=== PATIENT | male | born 1965 | race Caucasian/White ===

== ENCOUNTER → 2020-03-11 08:46 | Outpatient (CLI) | payer OTHER, SELFPAY ==
[2020-02-12 15:12] VITALS: BMI 38.5
[2020-03-11 09:49] LABS: AST(SGOT) 13 U/L (15-37); Alanine Aminotransfer ALT/SGPT 31 U/L (16-61); Albumin, Serum 3.6 g/dL (3.2-5.0); Alkaline Phosphatase 87 U/L (45-117); Bilirubin, Direct 0.25 mg/dL (0.00-0.30); Cholesterol 146 mg/dL (200); Globulin 3.4 g/dL (2.2-4.2); High Density Lipoprotein 48 mg/dL; Triglycerides 68 mg/dL; Very Low Density Lipoprotein 14 mg/dL (5-40)
== END ==
PROVIDERS: PCP Family Medicine; Referring Provider Internal Medicine Cardiovascular Disease; Visit Provider Internal Medicine Cardiovascular Disease
DX: E78.2 Mixed hyperlipidemia (principal)
CPT/HCPCS: 36415; 80061; 80076

== ENCOUNTER → 2020-03-25 06:54 | Outpatient (CLI) | payer OTHER, SELFPAY ==
[2020-02-12 15:12] VITALS: BMI 38.5
--- NOTE | 2020-03-25 06:57 | ECHOCS_ITS ---
Reason For Study: Chest pain Procedure This was a 2D Doppler, Color Flow transthoracic echocardiogram. The study was technically difficult. Exam performed in department. Left Ventricle Normal LV size. Left ventricular systolic function is normal. The estimated ejection fraction is 65 %. No regional wall motion abnormalities noted. Right Ventricle Normal RV size. Normal systolic function. Atria Normal left atrium. Mitral Valve Normal mitral valve. Tricuspid Valve The tricuspid valve is not well visualized. Aortic Valve The aortic valve is not well visualized. Great Vessels Normal aortic root. Pericardium/Pleural No pericardial effusion. Medication Performed a rapid injection of agitated mix of 9 cc saline and 1cc air to assess for atrial septal defect. Diluted definity 3ml given slow IV push to enhance endocardial definition. MMode/2D Measurements & Calculations LVIDd: 4.0 cm IVSd: 1.2 cm Ao root diam: 3.8 cm LVIDs: 2.4 cm LVPWd: 1.2 cm RVDd: 3.4 cm FS: 39.6 % LAV(MOD-bp): 49.2 ml LA A4 area: 13.3 cm2 LA dimension(2D): 3.3 cm LAV(MOD-sp2): 72.4 ml LAV(MOD-sp4): 28.7 ml RA A4 area: 12.5 cm2 Doppler Measurements & Calculations MV A max shai: 57.1 cm/sec Lat Peak E' Shai: 9.6 cm/sec Med Peak E' Shai: 7.4 cm/sec Ao V2 max: 119.6 cm/sec LV V1 max: 107.5 cm/sec PA V2 max: 101.8 cm/sec Ao max P.7 mmHg LV V1 max P.6 mmHg Interpretation Summary Normal LV size. Left ventricular systolic function is normal. The estimated ejection fraction is 65 %. Contrast injection was performed. Ordering Physician: Hamilton Reyna Referring Physician: MD Syeda Khadar Performed By: Deepti De La Fuente RDCS
--- NOTE | 2020-03-25 12:40 | STRESSREP ---
Stress Test Report Exercise myocardial perfusion stress test. 54-year-old man with a history of hypertension, diabetes mellitus, and chest pain. Stress protocol: Resting EKG demonstrates normal sinus rhythm with a rate of 75 bpm normal intervals are noted resting blood pressure is 118/72 mmHg. The patient exercised according to the regular Edwardo protocol for total duration of 9 minutes. The maximum heart rate attained was 150 bpm which was 92% of maximum predicted heart rate the maximum workload was 10.1 metabolic equivalents. At rest there were no ST or T wave changes noted to suggest ischemia at peak exercise upsloping ST changes were noted with no meet the criteria for ischemia. The resting blood pressure was 118/72 with a peak blood pressure 186/90 mmHg. The rate-pressure product was 27,500. Occasional premature ventricular complexes were noted. The test was terminated due to dyspnea and target heart rate being achieved. Myocardial perfusion protocol. 15.0 mCi of technetium 99m sestamibi was injected at rest. The patient exercised according to regular Edwardo protocol. At peak infusion 45.0 mCi of technetium 99m sestamibi was injected stress images were obtained stress and rest images were reconstructed and compared in the short axis vertical long horizontal long axis. Gated images were also obtained Perfusion SPECT analysis: Review of the stress images demonstrate normal uptake of tracer noted in all areas of the myocardium. The resting images similar demonstrate normal uptake of tracer noted in all areas of the myocardium. No reversibility is noted to suggest ischemia. Gated SPECT analysis: The gated ejection fraction is 57%. Conclusion: Normal exercise myocardial perfusion stress test at a high workload. No clinical angina noted. Preserved ejection fraction.
== END ==
PROVIDERS: PCP Family Medicine; Referring Provider Internal Medicine Cardiovascular Disease; Visit Provider Internal Medicine Cardiovascular Disease
DX: R07.9 Chest pain, unspecified (principal); R94.31 Abnormal electrocardiogram [ECG] [EKG]; R03.0 Elevated blood-pressure reading, without diagnosis of hypertension
CPT/HCPCS: 78452; 93017; 93306; A9500; Q9957; A4216; C8929

== ENCOUNTER 2025-05-22 05:44 | Day surgery (SDC) | payer OTHER, SELFPAY ==
--- NOTE | 2025-05-14 08:16 | EKG12_ITS ---
Test Reason : PREOP Blood Pressure : */* mmHG Vent. Rate : 78 BPM Atrial Rate : 78 BPM P-R Int : 174 ms QRS Dur : 98 ms QT Int : 370 ms P-R-T Axes : 21 -12 28 degrees QTcB Int : 421 ms Normal sinus rhythm Inferior-posterior infarct , age undetermined Abnormal ECG Confirmed by IVAN LAGOS, DILLON ([id number]), editor book BRIAN ARCE ([id number]) on 05/14/2025 1:51:59 PM Referred By: Curt Dover Confirmed By: DILLON LOVE MD
[2025-05-14 08:44] LABS: Hematocrit 42.0 % (40-54); Hemoglobin 14.0 g/dL (13.0-16.5); Immature Granulocytes Count 0.020 X10^3/uL (0.0-0.0); Mean Corp Hgb Conc 33.3 g/dL (32-36); Mean Corpuscular Volume 89.0 fL (80-94); Mean Platelet Vol. 9.1 fl (6.2-12.0); NRBC Flagged by Analyzer 0 % (0-5); Platelet Count 319 K/mm3 (150-450); RBC Distribution Width CV 13.8 % (11.6-14.6); RBC Distribution Width SD 44.6 fl (35.1-43.9); Red Blood Count 4.72 M/mm3 (4.6-6.2); White Blood Count 5.9 K/mm3 (4.4-11.0)
[2025-05-14 09:31] LABS: Anion Gap 8 (5-15); BUN 10 mg/dL (4-19); BUN/Creat Ratio 12.5 RATIO (10-20); Calcium,Total 9.5 mg/dL (7.6-11.0); Carbon Dioxide 25.6 mmol/L (21.0-32.0); Chloride 108 mmol/L (98-108); Glucose 112 mg/dL (70-99); Potassium 4.5 mmol/L (3.3-5.1)
--- NOTE | 2025-05-15 16:18 | PAT.ANE_ITS ---
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 When Was Last Pacemaker Check QUESTION #4 FULL TEXT: You/Your Family Experience fever (hyperthermia) with Anesthesia Last Oral Intake Last Oral intake: Last Oral Intake NPO since Meds taken in AM with sips of water? Meds patient instructed to take am of surgery PONV PONV - utility bag assembler: PONV - utility bag assembler Female No 05/12/25 15:12 HX of Motion Sickness No 05/12/25 15:12 HX of N/V After Surgery No 05/12/25 15:12 Non-Smoker Yes 05/12/25 15:12 Duration of Surgery greater Yes 05/12/25 15:12 than 60 minutes Number of Risk Factors 2 05/12/25 15:12 PONV Score Moderate Risk 05/12/25 15:12 Height & Weight Height & Weight: Anesthesia: Height & Weight Height 5 ft 10 in 07/29/21 08:28 Respiratory Assessment Respiratory Assessment - utility bag assembler: Respiratory Tract Infection Hx - utility bag assembler Hx Respiratory Tract Infection No 05/12/25 15:12 STOP Sleep Apnea STOP Sleep Apnea - utility bag assembler: STOP Sleep Apnea - utility bag assembler Hx Hypertension Yes: CONTROLLED ON MED 05/12/25 15:12 Hx Sleep Apnea No 05/12/25 15:12 CPAP BIPAP Do you snore loudly (louder No 05/12/25 15:12 than talking or can be heard Do you often feel tired/ No 05/12/25 15:12 fatigued/ sleepy during daytime? Has anyone observed you stop No 05/12/25 15:12 breathing during sleep? STOP Results Negative 05/12/25 15:12 QUESTION #5 FULL TEXT : Do you snore loudly (louder than talking or can be heard through closed doors)? 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 Specify any problems Hx of Preganancy in last 3 N/A 05/12/25 15:12 Months Nurse Filling Out Transfusion VCHRISTIN 05/12/25 15:12 & Questions: Date: 05/12/25 05/12/25 15:12 Time: 15:14 05/12/25 15:12 Patient unable to answer at this time (ie. confused, unrespo /Reproduction History /Reproductive History - utility bag assembler: /Reproductive Hx- utility bag assembler Hx Now No 05/12/25 15:12 Gestational Age (in weeks): EDC: Hx Hx Para Hx Section SAB No 05/12/25 15:12 PFSH Medical History (Updated 05/12/25 @ 15:11 by Kaur Regan) Wears glasses Anxiety Arthritis Difficulty swallowing Non-smoker History of edema Hypertension History of echocardiogram History of stress test Cardiology follow-up encounter Mixed hyperlipidemia Obesity Home Medications ?Medication ?Instructions ?Recorded ?Last Taken ?Type acetaminophen 325 mg tablet 325 mg PO Q6H PRN pain 12/02 Unknown History (Tylenol) ibuprofen 200 mg capsule 200 mg PO Q6H PRN pain 02/11 Unknown History naproxen sodium 220 mg capsule 220 mg PO BID PRN pain 02/12/20 Unknown History (Aleve) metoprolol succinate 25 mg 25 mg PO DAILY #90 tabs 02/01 Unknown Rx tablet,extended release 24 hr (Toprol XL) Allergy/AdvReac Type Severity Reaction Status Date / Time Penicillins Allergy rash Verified 05/12/25 15:02 Family History Father Myocardial infarction, Onset Age: 40 Grandfather Myocardial infarction Grandmother Myocardial infarction Surgical History (Updated 05/12/25 @ 15:11 by Kaur Regan) Hx of knee surgery Hx of excision of dermoid cyst History of colonoscopy Social History Smoking Status: Never smoker caffeine: Yes (Mountain dew) Type: carbonated beverages Number of servings: 8 Audit: Pertinent Findings Pertinent Findings EKG Perinent findings: EKG 05-14-2025: Vent. Rate : 78 BPM Atrial Rate : 78 BPM P-R Int : 174 ms QRS Dur : 98 ms QT Int : 370 ms P-R-T Axes : 21 -12 28 degrees QTcB Int : 421 ms Normal sinus rhythm Inferior-posterior infarct , age undetermined Abnormal ECG Stress test pertinent findings: Exercise myocardial perfusion stress test done on 03/25/2020: Conclusion: Normal exercise myocardial perfusion stress test at a high workload. No clinical angina noted. Preserved ejection fraction. Echo (EF%) pertinent findings: Echo 03/25/2020: Normal LV size. Left ventricular systolic function is normal with an estimated EF around 65%. Aortic valve was not well-visualized on this test. Normal left atrium and normal mitral valve. Consult pertinent findings: Cardiology visit with Dr. Reyna 07/29/2021: His blood pressure appears to be under good control at this particular time. His test thus far have been reassuring and my recommendations will be for us to continue the same medications with no changes. At this time I think that we can see him here in our office on an as-needed basis. Recommendation Anesthesia Recommendation Anesthesia recommendation: OPTIMIZED for anesthesia (Would recommend that the patient continue his metoprolol and not hold it for the surgery.)
[2025-05-22] VITALS (14 sets, daily range): BP systolic 116–136; BP diastolic 80–98; PULSE 61–78; RESP 14–16; TEMP 36.2–36.4; O2SAT 92–98; BMI 39.6
--- OUTSIDE RECORDS SUMMARY | 2025-05-22 05:48 | XMS RPT_ITS | CCD ---
Author Organization [facility] ion Partnership [facility] Care Team Providers Care Regional Project Manager Name Role Phone Luis Enrique Landa MD Primary Care Provider Luis Enrique Landa MD Primary Care Provider Alokhoyohana SALES MERCHANDISE ASSOCIATE.Bety HERNANDEZ Unavailable Vahe SALES MERCHANDISE ASSOCIATE.SENIOR PRODUCT DEVELOPMENT SCIENTISTBaldemar Unavailable Tannhof SALES MERCHANDISE ASSOCIATE.Bety HERNANDEZ Unavailable DR LUIS ENRIQUE LANDA MD Primary Care Unavailab cornelius PÉREZ PA-C, AIDA Lynn Attending Unavailable NAOMI CENTENO Attending Unavailable LUIS ENRIQUE LANDA Primary Care Unavailable JESSY HAZEL JR Attending Unavailable BASIA CLEMENT Referring Unavailable LUIS ENRIQUE LANDA Primary Care Unavailable LUIS ENRIQUE LANDA Referring Unavailable LUIS ENRIQUE LANDA Primary Care Unavailable LUIS ENRIQUE LANDA Attending Unavailable LUIS ENRIQUE LANDA Primary Care Unavailable Efe Mays Attending Unavailable Luis Enrique Landa Primary Care Unavailable Luis Enrique Landa Primary Care Unavailable Curt Dover Referring Unavailable Curt Dover Attending Unavailable Referred, Self Attending Unavailable Luis Enrique Landa Primary Care Unavailable LUIS ENRIQUE LANDA Primary Care Unavailable PITO PHILLIPS Attending Unavaila LUIS ENRIQUE [place] Primary Care Unavailable CONKLESHAWN PITO Attending Unavaila NAOMI Miranda Referring Unavailable LUIS ENRIQUE LANDA Primary Care Unavailable LENI BRITTON Admitting Unavailable CONKLESHAWN, PITO Referring Unavaila LUIS ENRIQUE [place] Primary Care Unavailable Allergies Allergy Classification Reported Allergen(s) Allergy Type Date of Onset Reaction(s) Facility (18 sources) Penicillins; Translations: [PENICILLINS] Drug Intolerance 5 [facility] (2 sources) Penicillins Drug Intolerance 5 [facility] (1 source) Penicillins Drug allergy (disorder) [facility] Repository Medications Current Medications Medication Drug Class(es) Dates Sig (Normalized) Sig (Original) acetaminophen 500 mg oral tablet (11 sources) take 1 tablet by mouth every eight hours as needed acetaminophen (TYLENOL EXTRA STRENGTH) 500 mg tablet Take 500 mg by mouth every 8 hours as needed for pain. Active acetaminophen 325 mg / oxyCODONE hydrochloride 5 mg oral tablet (1 source) Opioid Agonist Start: 11-11-2024 End: 11-13-2024 take 1 tablet by mouth every eight hours as needed for pain oxyCODONE-acetamino phen (PERCOCET) 5-325 mg tablet Indications: Left arm pain Take 1 tablet by mouth every 8 hours as needed for pain for up to 2 days. 6 tablet 11/11/2024 11/13/2024 Active ibuprofen 200 mg oral tablet (1 source) Nonsteroidal Anti-inflammatory Drug take 4 tablets by mouth every eight hours as needed ibuprofen (MOTRIN) 200 mg tablet Take 800 mg by mouth every 8 hours as needed for pain. Active 24 hr metoprolol succinate 25 mg extended release oral tablet (19 sources) beta-Adrenergic Salty Start: 03-04-2024 End: 04-22-2024 take 1 tablet by mouth once daily metoprolol succinate ER (TOPROL XL) 25 mg 24 hr tablet Indications: Mixed hyperlipidemia , Primary hypertension Take 1 tablet by mouth once daily. 90 tablet 3 04/22/2024 Active Start: 12-20-2021 End: 12-07-2023 take 1 tablet by mouth once daily metoprolol succinate ER (TOPROL XL) 25 mg 24 hr tablet Indications: Mixed hyperlipidemia Take 1 tablet by mouth once daily. 90 tablet 3 11/18/2022 12/07/2023 Discontinued Comment on above: Take 1 tablet by andrea th once daily. naproxen 250 mg oral tablet (17 sources) Nonsteroidal Anti-inflammatory Drug naproxen (NAPROSY N) 250 mg tablet Take 250 mg by mouth as needed. Active Comment on above: Take 250 mg by mouth as needed. polyethylene glycol 3350 835715 mg / potassium chloride 2970 mg / sodium bicarbonate 6740 mg / sodium chloride 5860 mg / sodium sulfate 69355 mg powder for oral solution (1 source) Osmotic Laxative Start: 05-13-2024 End: 05-13-2024 peg 3350-Electrolytes (GOLYTELY) 236-22.74-6.74 -5.86 gram suspension Indications: Screening for colon cancer Take 4,000 mL by mouth one time only for 1 dose. Refer to printed prep instructions from your provider. 4000 mL 0 05/13/2024 05/13/2024 Active Completed/Discontinued Medications Medication Drug Class(es) Dates Sig (Normalized) Sig (Original) atorvastatin 10 mg oral tablet (8 sources) HMG-CoA Reductase Inhibitor Start: 12-20-2021 End: 04-22-2024 take 1 tablet by mouth once daily atorvastatin (LIPITOR) 10 mg tablet Indications: Mixed hyperlipidemia Take 1 tablet by mouth once daily. 90 tablet 3 11/18/2022 04/22/2024 Discontinued Comment on above: Take 1 tablet by andrea once daily. primidone 50 mg oral tablet (1 source) Anti-epileptic Agent Start: 12-20-2021 End: 11-18-2022 take 0.5 tablet by mouth once daily at bedtime primidone (MYSOLINE) 50 mg tablet Indications: Essential tremor Take 0.5 tablets by mouth daily at bedtime. 15 tablet 2 12/20/2021 11/18/2022 Discontinued Comment on above: Take 0.5 tablets by mouth daily at bedtime. Problems Active Problems Problem Classification Problem Date Documented Da te Episodic/Chronic Conduction disorders (3 sources) Incomplete right bundle branch block; Translations: [Unspecified right bundle-branch block] Onset: 11-28-2024 11-28-2024 Chronic Diabetes mellitus without complication (2 sources) Increased glucose level; Translations: [Other abnormal glucose] Episodic Disorders of lipid metabolism (20 sources) Mixed hyperlipidemia; Translations: [Mixed hyperlipidemia] Onset: 05-22-2006 Chronic Esophageal disorders (20 sources) Eosinophilic esophagitis; Translations: [Eosinophilic esophagitis] Onset: 12-31-2015 12-31-2015 Chronic Essential hypertension (1 source) Essential hypertension; Translations: [Essential (primary) hypertension] 04-22-2024 Chronic Genitourinary symptoms and ill-defined conditions (1 source) Poor stream of urine; Translations: [Poor urinary stream] Episodic Hyperplasia of prostate (7 sources) Benign prostatic hypertrophy with outflow obstruction; Translations: [Benign prostatic hyperplasia with lower urinary tract symptoms] Onset: 04-09-2025 Chronic Other and unspecified benign neoplasm (1 source) History of polyp of colon; Translations: [Personal history of colonic polyps] 05-13-2024 Episodic Other connective tissue disease (2 sources) Pain in left arm; Translations: [Pain in left arm] 11-11-2024 Episodic Other connective tissue disease (2 sources) Pain in left lower leg; Translations: [Pain and swelling of left lower leg] Onset: 05-17-2025 Episodic Other connective tissue disease (2 sources) Other specified soft tissue disorders; Translations: [Pain and swelling of left lower leg] Onset: 05-17-2025 Episodic Other gastrointestinal disorders (20 sources) Dysphagia; Translations: [Dysphagia, unspecified] 01-22-2015 Episodic Other hereditary and degenerative nervous system conditions (1 source) Essential tremor; Translations: [Essential tremor] Chronic Other injuries and conditions due to external causes (1 source) Unspecified injury of unspecified quadriceps muscle, fascia and tendon, initial encounter; Translations: [Injury of quadriceps tendon] Onset: 05-17-2025 Episodic Other male genital disorders (2 sources) Secondary erectile dysfunction; Translations: [Male erectile dysfunction, unspecified] 04-16-2024 Chronic Other male genital disorders (1 source) Male erectile dysfunction, unspecified; Translations: [Impotence of organic origin] Onset: 05-13-2025 Chronic Other nutritional; endocrine; and metabolic disorders (17 sources) Obesity; Translations: [Obesity, unspecified] Onset: 10-26-2012 10-26-2012 Chronic Other nutritional; endocrine; and metabolic disorders (1 source) Severe obesity; Translations: [Morbid (severe) obesity due to excess calories] 04-22-2024 Chronic Other screening for suspected conditions (not mental disorders or infectious disease) (20 sources) Patient encounter status; Translations: [Encounter for screening for malignant neoplasm of colon] Onset: 03-04-2015 03-26-2024 Episodic Residual codes; unclassified (2 sources) Pain; Translations: [Pain, unspecified] Episodic Past or Other Problems Problem Classification Problem Date Documented Da te Episodic/Chronic Nonspecific chest pain (17 sources) Atypical chest pain; Translations: [Other chest pain] Onset: 02-23-2015 02-23-2015 Episodic Other circulatory disease (3 sources) Elevated blood-pressure reading without diagnosis of hypertension; Translations: [Elevated blood-pressure reading, without diagnosis of hypertension] Onset: 11-28-2024 11-28-2024 Episodic Other connective tissue disease (1 source) Pain in left arm; Translations: [Left arm pain] Onset: 11-21-2024 Episodic Other gastrointestinal disorders (18 sources) Dysphagia, unspecified; Translations: [Dysphagia, unspecified] Onset: 01-22-2015 Episodic Other injuries and conditions due to external causes (1 source) Unspecified injury of left wrist, hand and finger(s), initial encounter; Translations: [Left wrist injury, initial encounter] Onset: 11-02-2024 Episodic Unclassified (1 source) Patient encounter status 03-21-2025 Viral infection (17 sources) Verruca vulgaris; Translations: [Other viral warts] Onset: 07-27-2005 07-27-2005 Episodic Results Test Name Value Interpretation Reference Range Facility [facility] 05-17-2025 [facility] HNO ID: [id number] Author: ROMA BUTLER RDMS Service: ? Author Type: Accounts Receivable Accountant Type: [facility] Filed: 05/17/2025 10:17 Note Text: Radiology Service Progress Note PATIENT NAME: Corinne Garcia DATE OF SERVICE: May 17, 2025 TIME: 10:17 AM PATIENT IDENTITY VERIFICATION COMPLETED USING TWO (2) IDENTIFIERS: Name and Date of confirmed by patient verbally. FALL SCREENING: Has the patient had 2 falls in the last year or 1 fall with injury or currently using an Ambulatory Assistive Device (Walker, Cane, Wheelchair, Crutches, etc.)? Emergency Room Patient: Screened in ED PATIENT GENDER DATA: Assigned male at PATIENT RELEVANT IMPLANT DATA REVIEWED: Not Applicable PATIENT PRESENTS WITH AN IMPLANTABLE OR ATTACHED LEAD GENERATION MARKETING MANAGER: na RADIOLOGY DEPARTMENT: Ultrasound PERIPHERAL IV DATA: Not applicable SIGNED BY: Roma Butler RDMS May 17, 2025 10:17 AM [facility] ED NOTEon 05-17-2025 ED NOTE HNO ID: [id number] Author: JAYSON CORDOVA NA Service: ? Author Type: Nurse Groundskeeping Yardman Type: ED Notes Filed: 05/17/2025 10:37 Note Text: Discharge information discussed with pt. Pt verbalized understanding. VSS. Pt has no questions or concerns at this time. 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 [facility] ED NOTE HNO ID: [id number] Author: JAYSON CORDOVA NA Service: ? 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 [facility] ED NOTE HNO ID: [id number] Author: CHEMA ALBERT RN Service: ? Author Type: Registered Nurse Type: ED Notes Filed: 05/17/2025 08:27 Note Text: Pt reports on 05/01 he was carrying water jugs down to his basement and fell. Reports quad tendon tear for which sx is scheduled 05/22. [facility] ED NOTE HNO ID: [id number] Author: CHEMA ALBERT RN Service: ? Author Type: Registered Nurse Type: ED Notes Filed: 05/17/2025 08:22 Note Text: Pt arrives with report of concern for blood clot in left leg. Pt is scheduled for tendon repair sx on 05/22. Pt reports pain at left calf. Pt is also reporting swelling, pain and redness. [facility] ED PROV NOTEon 05-17-2025 ED PROV NOTE HNO ID: [id number] Author: ABIEL MCCABE APRN.DAVID Service: ? Author Type: Nurse Practitioner Type: ED Provider Notes Filed: 05/17/2025 10:28 Note Text: ED Provider Note Patient Name: Corinne Garcia : 1965 SERVICE DATE: 05/17/25 History Patient presents with: Calf Pain: L sided calf pain, fell on 05/01 and scheduled for surgery coming up for torn L sided quadricept tendon, yesterday noticed calf was more warm to the touch and more pain 60-year-old male presents to the emergency department with concern for blood clot in his left leg. On May 01 he had a fall injuring his quadriceps tendon he is scheduled for repair on May 22. He is seen wearing a knee brace. He has had pain and swelling since the injury. He reports worsening aching in his left calf and warmth over the last couple of days. He is concerned for a blood clot. He has no new weakness, numbness or tingling. He has been using ibuprofen for the pain. He denies history of DVT or PE. He has no chest pain, shortness of breath or palpitations. History provided by: Patient translator/interpreter used: No PAST MEDICAL HISTORY Diagnosis Date - Benign prostatic hyperplasia without lower urinary tract symptoms - BPH with obstruction/lower urinary tract symptoms - Chest pain at rest - Dysphagia - Eosinophilic esophagitis - Impotence of organic origin - Obesity PAST SURGICAL HISTORY Procedure Laterality Date - COLONOSCOPY FLX DX W/COLLJ SPEC WHEN PFRMD 03/04/2015 Colonoscopy - ESOPHAGOGASTRODUODENOSCOPY TRANSORAL DIAGNOSTIC 03/04/2015 EGD - ESOPHAGOGASTRODUODENOSCOPY TRANSORAL DIAGNOSTIC 04/02/2018 EGD - EXC CSTIC HYGROMA AX/CRV W/O DP NEUROVASC DSJ back of neck, in office. - PAST SURGICAL HISTORY OF left knee repair, meni - TONSILLECTOMY AND ADENOIDECTOMY FAMILY HISTORY Problem Relation Age of Onset - Heart Father [place] in 40s; smoker - Hypertension Father - Diabetes Father - Hypertension Mother - Diabetes Mother - Heart Paternal Grandfather Social History Tobacco Use - Smoking status: Never - Smokeless tobacco: Never Vaping Use - Vaping status: Never Used Substance and Sexual Activity - Alcohol use: Yes Comment: occasionally - Drug use: Not Currently Types: Marijuana Comment: In high school - Sexual activity: Yes Partners: Female ALLERGIES Allergen Reactions - Penicillins Hives Review of Systems Constitutional: Negative for chills and fever. HENT: Negative for congestion and sore throat. Eyes: Negative. Respiratory: Negative for cough and shortness of breath. Cardiovascular: Positive for leg swelling. Negative for chest pain and palpitations. Gastrointestinal: Negative for abdominal pain and vomiting. Endocrine: Negative. Genitourinary: Negative for dysuria and frequency. Musculoskeletal: Negative for arthralgias and myalgias. Skin: Negative for rash and wound. Allergic/Immunologic: Negative. Neurological: Negative for dizziness and syncope. Psychiatric/Behavioral: Negative. Physical Exam Vitals [05/17/25 0933] BP Pulse Temp Temp src Resp SpO2 Weight Height 150/95 89 36.9 ?C (98.4 ?F) Oral 18 97 % 127 kg (280 lb) -- Physical Exam Vitals and nursing note reviewed. Constitutional: Appearance: He is not toxic-appearing. HENT: Head: Normocephalic and atraumatic. Cardiovascular: Rate and Rhythm: Normal rate. Pulmonary: Effort: Pulmonary effort is normal. No respiratory distress. Musculoskeletal: Left hip: Normal. No deformity. Normal range of motion. Left lower leg: Tenderness present. Edema present. Left foot: Normal range of motion and normal capillary refill. No swelling. Normal pulse. Comments: Left calf is warm although there are no palpable cords or erythema, no streaking Skin: General: Skin is warm. Neurological: General: No focal deficit present. Mental Status: He is alert and oriented to person, place, and time. Psychiatric: Mood and Affect: Mood normal. Behavior: Behavior normal. Behavior is cooperative. Diagnostic Testing ED Labs Ordered and Reviewed - No data to display Procedures ED Course / Clinical Impression Clinical Impressions as of 05/17/25 1027 Leg swelling Tenderness of left calf Injury of quadriceps tendon MDM / Disposition / Plan Vital signs, triage records and nursing notes were reviewed and incorporated. Patient is a 60 year old male who presents today with leg calf swelling, pain and warmth. Physical exam reveals non-toxic appearing male, AANDOX3, neurologically intact, breathing is unlabored, no use of accessory muscles. Left lower extremity edema with warmth. Otherwise neurovascularly intact. . Vital signs are stable on initial exam. History and Record Review External record(s) reviewed: prior outpatient record. Findings from review of outpatient records: History of BPH follows outpatient with urology Differential Diagnoses - Leg swell (more content not included)... Normal [facility] ED PROV NOTE HNO ID: [id number] Author: PITO PHILLIPS DO Service: Emergency Medicine Author Type: Physician Type: ED Provider Notes Filed: 05/17/2025 08:51 Note Text: ED Provider Note Patient Name: Corinne Garcia : 1965 SERVICE DATE: 05/17/25 History Patient presents with: Leg Pain Corinne Garcia is a 60 year old male who presents with Left leg Pain. - Symptoms began May 01, noticed left calf pain more yesterday. - Severity: moderate - Timing: constant - Quality: sore - Symptoms are associated with left leg swelling, bruising. - Symptoms are not associated with chest pain, chills, fever, shortness of breath, palpitations, hemoptysis, syncope, numbness. Patient presents with left leg pain and swelling. He states that he had a fall on May 01 while carrying water jugs/cooler down the stairs. He states he thought he was on the last step and missed that step and he fell with his left knee bent/flexed with his foot underneath him and felt a pop near his left knee. He states he went the next day and was seen by orthopedics and was diagnosed with a tear of one of his quadricep tendons and is scheduled for surgery on the quadricep tendon on May 22. He has been wearing a knee brace. He states that his left leg has been swollen and tender, but notes that he is now noticing tenderness more in the left calf area. He states that he is concerned he may have a blood clot. He states that he has had no fever or chills. He states that he has no chest pain or shortness of breath. No palpitations, hemoptysis or syncope. He reports no history of blood clots. PAST MEDICAL HISTORY Diagnosis Date Benign prostatic hyperplasia without lower urinary tract symptoms BPH with obstruction/lower urinary tract symptoms Chest pain at rest Dysphagia Eosinophilic esophagitis Impotence of organic origin Obesity PAST SURGICAL HISTORY Procedure Laterality Date COLONOSCOPY FLX DX W/COLLJ SPEC WHEN PFRMD 03/04/2015 Colonoscopy ESOPHAGOGASTRODUODENOSCOPY TRANSORAL DIAGNOSTIC 03/04/2015 EGD ESOPHAGOGASTRODUODENOSCOPY TRANSORAL DIAGNOSTIC 04/02/2018 EGD EXC CSTIC HYGROMA AX/CRV W/O DP NEUROVASC DSJ 1979' back of neck, in office. PAST SURGICAL HISTORY OF left knee repair, meni TONSILLECTOMY AND ADENOIDECTOMY FAMILY HISTORY Problem Relation Age of Onset Heart Father [place] in 40s; smoker Hypertension Father Diabetes Father Hypertension Mother Diabetes Mother Heart Paternal Grandfather Social History Tobacco Use Smoking status: Never Smokeless tobacco: Never Vaping Use Vaping status: Never Used Substance and Sexual Activity Alcohol use: Yes Comment: occasionally Drug use: Not Currently Types: Marijuana Comment: In high school Sexual activity: Yes Partners: Female ALLERGIES Allergen Reactions Penicillins Hives Review of Systems Constitutional: Negative for chills and fever. Respiratory: Negative for shortness of breath. Cardiovascular: Positive for leg swelling (Left leg). Negative for chest pain and palpitations. Musculoskeletal: Positive for myalgias (Left leg). Skin: Positive for color change (Bruising to left leg). Negative for wound. Neurological: Negative for syncope, weakness and numbness. Psychiatric/Behavioral: Negative for agitation and confusion. Physical Exam Vitals [05/17/25 0819] BP Pulse Temp Temp src Resp SpO2 Weight Height 156/82 (!) 97 37 ?C (98.6 ?F) -- 14 97 % 127 kg (280 lb) 1.778 m (5' 10) Physical Exam Vitals and nursing note reviewed. Constitutional: Appearance: He is not toxic-appearing or diaphoretic. HENT: Head: Normocephalic and atraumatic. Eyes: Conjunctiva/sclera: Conjunctivae normal. Cardiovascular: Rate and Rhythm: Normal rate and regular rhythm. Pulses: Normal pulses. Pulmonary: Effort: Pulmonary effort is normal. Breath sounds: Normal breath sounds. Abdominal: General: There is no distension. Palpations: Abdomen is soft. Tenderness: There is no abdominal tenderness. Musculoskeletal: Left upper leg: Swelling and tenderness present. No lacerations. Left knee: Swelling present. No lacerations or bony tenderness. Right lower leg: No edema. Left lower leg: Tenderness present. No lacerations. Edema present. Left ankle: Swelling present. No lacerations. No tenderness. Normal range of motion. Normal pulse. Left foot: Normal capillary refill. Swelling present. No laceration, bony tenderness or crepitus. Normal pulse. Comments: Left lower extremity: Compartments are soft and compressible. There are areas of bruising noted. No evidence of cellulitis. Skin is intact. Pulses intact. Extremity is warm and well perfused. Left knee: extensor mechanism intact Skin: General: Skin is warm and dry. Capillary Refill: Capillary refill takes less than 2 seconds. Neurological: General: No focal deficit present. Mental Status: He is alert and oriented to person, p (more content not included)... Normal [facility] US DVT LOWER LTon 05-17-2025 US DVT LOWER LT * * *Final Report* * * DATE OF EXAM: May 17 2025 10:16AM MDU 1006 - US DVT LOWER LT / PROCEDURE REASON: Leg pain or tenderness * * * * Physician Interpretation * * * * EXAMINATION: LEFT LOWER EXTREMITY DEEP VENOUS ULTRASOUND WITH DOPPLER IMAGING CLINICAL HISTORY: Left Leg pain or tenderness, pain and swelling TECHNIQUE: Grayscale with compression maneuvers, color Doppler and spectral Doppler imaging of the left proximal deep veins was performed. Grayscale with compression maneuvers of the peroneal and posterior tibial veins was performed. The left great and small saphenous veins were evaluated at their insertion to the deep system. The contralateral common femoral vein was imaged for comparison. Images were obtained and stored in a permanent archive. MQ: [id number] COMPARISON: None RESULT: LEFT LOWER EXTREMITY PROXIMAL DEEP VEINS Distal External Iliac, Common Femoral and proximal Profunda Veins: Compression: Normal Doppler: Normal, spontaneous respirophasic flow. Normal response to augmentation. Femoral vein: Compression: Normal Doppler: Normal, spontaneous flow. Normal response to augmentation. Popliteal vein: Compression: Normal Doppler: Normal, spontaneous flow. Normal response to augmentation. CALF DEEP VEINS Peroneal veins: Normal compression. Posterior tibial veins: Normal compression. Gastrocnemius and Soleal veins: Not imaged. SUPERFICIAL VEINS Great saphenous: Patent and compressible at insertion into common femoral vein; not otherwise assessed. Small Saphenous: Patent and compressible in the proximal calf, not otherwise assessed. RIGHT LOWER EXTREMITY (FOR COMPARISON) Common Femoral Vein: Compression: Normal Doppler: Normal, spontaneous respirophasic flow. Normal response to augmentation. IMPRESSION: Negative study for proximal DVT in the left lower extremity. Negative study for calf DVT in the left lower extremity. Negative study for superficial thrombophlebitis in the imaged segments of the left lower extremity. Gas Torch Brazier: YESSI Transcribe Date/Time: May 17 2025 10:20A Dictated by : PANCHITO RICHTER MD This examination was interpreted and the report reviewed and electronically signed by: PANCHITO RICHTER MD on May 17 2025 10:21AM EST [id number] [facility] MR/PAT.Denise 05-15-2025 MR/PAT.BRYANNA YA [facility] Medical Records Department [address] [place] [address] PAT - Anesthesia 05/15/25 1618 MR#: [id number] Acct: [id number] Name: CORINNE GARCIA Rep #: [id number] : 1965 60 From: Garrett Garcia MD PCP: Dr. 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 When Was Last Pacemaker Check QUESTION #4 FULL TEXT: You/Your Family Experience fever (hyperthermia) with Anesthesia Last Oral Intake Last Oral intake: Last Oral Intake NPO since Meds taken in AM with sips of water? 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 Female No 05/12/25 15:12 HX of Motion Sickness No 05/12/25 15:12 HX of N/V After Surgery No 05/12/25 15:12 Non-Smoker Yes 05/12/25 15:12 Duration of Surgery greater Yes 05/12/25 15:12 than 60 minutes Number of Risk Factors 2 05/12/25 15:12 PONV Score Moderate Risk 05/12/25 15:12 Height Weight Height Weight: Anesthesia: Height Weight Height 5 ft 10 in 07/29/21 08:28 Respiratory Assessment Respiratory Assessment - sandstone inspector repairer: Respiratory Tract Infection Hx - 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 Has anyone observed you stop No 05/12/25 15:12 breathing during sleep? STOP Results Negative 05/12/25 15:12 QUESTION #5 FULL TEXT : Do you snore loudly (louder than talking or can be heard through closed doors)? 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 Specify any problems Hx of Preganancy in last 3 N/A 05/12/25 15:12 Months Nurse Filling Out Transfusion VCHRISTIN 05/12/25 15:12 Questions: Date: 05/12/25 05/12/25 15:12 Time: 15:14 05/12/25 15:12 Patient unable to answer at this time (ie. 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 repairer Hx Now No 05/12/25 15:12 Gestational Age (in weeks): EDC: Hx Hx Para Hx Section SAB No 05/12/25 15:12 PFS Medical History (Updated 05/12/25 @ 15:11 by Kaur Regan) Wears glasses Anxiety Arthritis Difficulty swallowing Non-smoker History of edema Hypertension History of echocardiogram History of stress test Cardiology follow-up encounter Mixed hyperlipidemia Obesity Home Medications ???Medication ???Instructions ???Recorded ???Last Taken ???Type acetaminophen 325 mg tablet 325 mg PO Q6H PRN pain 02/12/20 Un known History (Tylenol) ibuprofen 200 mg capsule 200 mg PO Q6H PRN pain 02/12/20 Un known History naproxen sodium 220 mg capsule 220 mg PO BID PRN pain 02/12/20 Un known History (Aleve) metoprolol succinate 25 mg 25 mg PO DAILY #90 tabs 06/15/22 U nknown Rx tablet,extended release 24 hr (Toprol XL) Allergy/AdvReac Type Severity Reaction Status Date / Time Penicillins Allergy rash Verified 05/12/25 15:02 Family History ... Normal [facility] 12 Lead EKGon 05-14-[address] [facility] [address] [place] [address] 12 Lead EKG 05/14/25 0820 MR#: [id number] Acct: [id number] Name: CORINNE GARCIA Rep #: [id number] : 1965 60 From: Hamilton Reyna MD Attending Dr: Dr. Curt Dover, Status: PRE [facility] [place] Ordering Dr: Curt Dover DO Date: 05/14/25 Location: [facility] Sex: M C Admitted: Test Reason : PREOP Blood Pressure : */* mmHG Vent. Rate : 78 BPM Atrial Rate : 78 BPM P-R Int : 174 ms QRS Dur : 98 ms QT Int : 370 ms P-R-T Axes : 21 -12 28 degrees QTcB Int : 421 ms Normal sinus rhythm Inferior-posterior infarct , age undetermined Abnormal ECG Confirmed by HAMILTON REYNA MD ([id number]), metropolitan editor BRIAN ARCE ([id number]) on 05/14/2025 1:51:59 PM Referred By: Curt Dover Confirmed By: HAMILTON REYNA MD 05/14/25 1352 Date Hamilton Reyna MD CC: Dr. Luis Enrique Landa MD; Dr. Curt Dover DO Signed Normal [facility] Basic Metabolic Profile (BMP )on 05-14-2025 BUN/CRE 12.5 RATIO Normal 10-20 [facility] Comment on above: Performed By: #### L 500.2500, L100.0100 #### [facility] [address] [place], [address] Calcium [Mass/Vol] 9.5 mg/dL Normal 7.6-11.0 [facility] Comment on above: Performed By: #### L 500.2500, L100.0100 #### [facility] [address] [place], [address] Chloride [Moles/Vol] 108 mmol/L Normal 98-108 [facility] Comment on above: Performed By: #### L 500.2500, L100.0100 #### [facility] [address] [place], [address] CO2 [Moles/Vol] 25.6 mmol/L Normal 21.0-32.0 [facility] Comment on above: Performed By: #### L 500.2500, L100.0100 #### [facility] [address] [place], [address] Creatinine [Mass/Vol] 0.81 mg/dL Normal 0.70-1.20 [facility] Comment on above: Performed By: #### L 500.2500, L100.0100 #### [facility] [address] [place], [address] GAP 8 Normal 5-15 [facility] Comment on above: Performed By: #### L 500.2500, L100.0100 #### [facility] [address] [place], [address] GFR/1.73 sq M.predicted among non-blacks MDRD (S/P/Bld) [Vol rate/Area] 100 mL/min/{1.73_m2} Normal >60 [facility] Comment on above: Result Comment: mL/m in/1.73m2 CKD-EPI Creatinine Equation (2020) Performed By: #### L 500.2500, L100.0100 #### [facility] [address] [place], [address] Glucose [Mass/Vol] 112 mg/dL High 70-99 [facility] [place] Comment on above: Performed By: #### L 500.2500, L100.0100 #### [facility] [address] [place], [address] Potassium [Moles/Vol] 4.5 mmol/L Normal 3.3-5.1 [facility] Comment on above: Performed By: #### L 500.2500, L100.0100 #### [facility] [address] [place], [address] Sodium [Moles/Vol] 142 mmol/L Normal 133-145 [facility] Comment on above: Performed By: #### L 500.2500, L100.0100 #### [facility] [address] [place], [address] Urea nitrogen [Mass/Vol] 10 mg/dL Normal 4-19 [facility] Comment on above: Performed By: #### L 500.2500, L100.0100 #### [facility] [address] [place], [address] CBC W/Diff, Automatedon 07-0 2-2024 Absolute Lymph 1.41 X10 3/uL Normal 0.83-4.51 [facility] Comment on above: Performed By: #### L 500.2500, L100.0100 #### [facility] [address] [place], [address] Absolute Neut 3.4 X10 3/uL Normal 2.0-7.7 [facility] Comment on above: Performed By: #### L 500.2500, L100.0100 #### [facility] [address] [place], [address] Basophils/100 WBC (Bld) 0.9 % Normal 0-1 [facility] Comment on above: Performed By: #### L 500.2500, L100.0100 #### [facility] [address] [place], [address] Eosinophils/100 WBC (Bld) 6.5 % High 0-5 [facility] Comment on above: Performed By: #### L 500.2500, L100.0100 #### [facility] [address] [place], [address] Erythrocyte distribution width (RBC) [Ratio] 13.8 % Normal 11.6-14.6 [facility] Comment on above: Performed By: #### L 500.2500, L100.0100 #### [facility] [address] [place], [address] Hematocrit (Bld) [Volume fraction] 42.0 % Normal 40-54 [facility] Comment on above: Performed By: #### L 500.2500, L100.0100 #### [facility] [address] [place], [address] Hemoglobin (Bld) [Mass/Vol] 14.0 g/dL Normal 13.0-16.5 [facility] Comment on above: Performed By: #### L 500.2500, L100.0100 #### [facility] [address] [place], [address] IG% 0.300 Normal 0.0-0.9 [facility] Comment on above: Result Comment: IG% - Immature Granulocytes (promyelocytes, myelocytes and metamyelocytes) > 1% indicates that a LEFT SHIFT is Present. Performed By: #### L 500.2500, L100.0100 #### [facility] [address] [place], [address] Lymphocytes/100 WBC (Bld) 24.1 % Normal 19-41 [facility] Comment on above: Performed By: #### L 500.2500, L100.0100 #### [facility] [address] [place], [address] MCH (RBC) [Entitic mass] 29.7 pg Normal 27.0-32.0 [facility] Comment on above: Performed By: #### L 500.2500, L100.0100 #### [facility] [address] [place], [address] MCHC (RBC) [Mass/Vol] 33.3 g/dL Normal 32-36 [facility] Comment on above: Performed By: #### L 500.2500, L100.0100 #### [facility] [address] [place], [address] MCV (RBC) [Entitic vol] 89.0 fL Normal 80-94 [facility] Comment on above: Performed By: #### L 500.2500, L100.0100 #### [facility] [address] [place], [address] Monocytes/100 WBC (Bld) 9.6 % Normal 0-10 [facility] Comment on above: Performed By: #### L 500.2500, L100.0100 #### [facility] [address] [place], [address] Neutrophils/100 WBC (Bld) 58.6 % Normal 47-70 [facility] Comment on above: Performed By: #### L 500.2500, L100.0100 #### [facility] [address] [place], [address] Nucleated RBC (Bld) [#/Vol] 0 10*3/uL Normal 0-5 [facility] Comment on above: Performed By: #### L 500.2500, L100.0100 #### [facility] [address] [place], [address] Platelet mean volume (Bld) [Entitic vol] 9.1 fL Normal 6.2-12.0 [facility] Comment on above: Performed By: #### L 500.2500, L100.0100 #### [facility] [address] [place], [address] Platelets (Bld) [#/Vol] 319 10*3/uL Normal 150-450 [facility] Comment on above: Performed By: #### L 500.2500, L100.0100 #### [facility] [address] [place], [address] RBC (Bld) [#/Vol] 4.72 10*6/uL Normal 4.6-6.2 [facility] Comment on above: Performed By: #### L 500.2500, L100.0100 #### [facility] [address] [place], [address] RDW SD 44.6 fl High 35.1-43.9 [facility] Comment on above: Performed By: #### L 500.2500, L100.0100 #### [facility] [address] [place], [address] WBC (Bld) [#/Vol] 5.9 10*3/uL Normal 4.4-11.0 [facility] [place] Comment on above: Performed By: #### L 500.2500, L100.0100 #### [facility] [address] [place], [address] CNOVon 05-13-2025 CNOV Office Visit (UROLWS ) CORINNE GARCIA ([id number]) 1965 M Date Time Provider Department 05/13/25 3:30 PM NAOMI CENTENO UROPABLO During your visit today, we recorded the following information about you: Temperature Pulse Blood pressure Weight 97.6 degrees 98/minute 124/76 127.9 kg Height 1.778 m April Mendoza LPN 05/13/2025 4:47 PM Signed Verified name and date of . CC Post Void Residual HPI: Corinne Garcia is a 60 year old male. The patient is here now for an appointment with ROSA Woodall MT, PA-COV. Procedure: Explained procedure to patient and verbalizes understanding. Performed a PVR. Patient urinated and instructed to empty bladder as much as possible just prior to having PVR done using bladder ultrasound scanner. Results of scan: 0 mL The patient tolerated the procedure well. Plan: Appointment with Naomi Gastelum PA-C 05/13/2025 4:47 PM Signed [facility] EST PATIENT CLINIC NOTE (M) Some elements copied from his previous note, which have been updated where appropriate, and all reflect current medical decision making from date of this visit. Note was generated by [employer] and edited as appropriate SERVICE DATE: May 13, 2025 NAME: Corinne Garcia GENDER: male CHIEF COMPLAINT: The patient is a 60-year-old male presenting for a 1-year follow-up, with concerns about PSA levels and erectile dysfunction. HISTORY OF PRESENT ILLNESS: The patient is a 60-year-old male presenting for a 1-year follow-up, with concerns about PSA levels and erectile dysfunction. PSA Monitoring: - Recent PSA level: 0.49, compared to 0.22 two years ago. - Inquires about the frequency of PSA checks. Erectile Dysfunction: - Reports diminished stamina post-orgasm, with difficulty maintaining erections. - Previously on a beta salty, which may have contributed to erectile issues. - Has experienced nocturnal erections accompanied by an ache in the prostate area. - Previously declined Viagra or Cialis; currently undecided about starting these medications. LABS: PSA (ng/mL) Date Value 04/09/2025 0.49 10/20/2022 0.22 07/07/2020 0.23 PSA Screening (ng/mL) Date Value 04/10/2024 0.22 05/24/2016 0.26 Creatinine Date Value Ref Range Status 04/10/2024 0.80 0.73 - 1.22 mg/dL Final 10/20/2022 0.92 0.73 - 1.22 mg/dL Final 11/30/2021 0.91 0.73 - 1.22 mg/dL Final No results found for: TESTOST Hematocrit (%) Date Value 04/10/2024 47.5 11/30/2021 47.1 08/28/2012 47.3 PSA (ng/mL) Date Value 04/09/2025 0.49 10/20/2022 0.22 07/07/2020 0.23 PSA Screening (ng/mL) Date Value 04/10/2024 0.22 05/24/2016 0.26 MEDICATIONS: ibuprofen (MOTRIN) 200 mg tablet Take 800 mg by mouth every 8 hours as needed for pain. metoprolol succinate ER (TOPROL XL) 25 mg 24 hr tablet Take 1 tablet by mouth once daily. acetaminophen (TYLENOL EXTRA STRENGTH) 500 mg tablet Take 500 mg by mouth every 8 hours as needed for pain. naproxen (NAPROSYN) 250 mg tablet Take 250 mg by mouth as needed. PAST MEDICAL HISTORY: PAST MEDICAL HISTORY Diagnosis Date Benign prostatic hyperplasia without lower urinary tract symptoms BPH with obstruction/lower urinary tract symptoms Chest pain at rest Dysphagia Eosinophilic esophagitis Impotence of organic origin Obesity REVIEW OF SYSTEMS: Genitourinary: (+) difficulty maintaining erection, (+) perineal pain associated with nocturnal erection PHYSICAL EXAMINATION: General: Alert AND oriented, no acute distress Skin: Normal HEENT: Pupils equal, round. Oral cavity, oropharynx clear Neck: Supple, no mass Breast: Deferred Respiratory: Clear to auscultation, bilaterally Cardiovascular: Regular rate and rhythm, no murmurs, rubs, or gallops Abdomen: Soft, non-tender, non-distended, no masses palpable, no hepatosplenomegaly, normal bowel sounds Genitourinary: Deferred MSK: Back is non-tender Extremities: No clubbing, cyanosis, or edema PROBLEM LIST REVIEW: Yes LABS: Results for orders placed or performed in visit on 05/13/25 UA DIP, URINE (POC) Result Value Ref Range GLUCOSE UA (POCT) Negative Negative mg/dL BILIRUBIN UA (POCT) Negative Negative KETONE UA (POCT) Negative Negative mg/dL SPECIFIC GRAVITY UA (POCT) 1.020 1.005 - 1.030 HEMOGLOBIN/BLOOD UA (POCT) Negative Negative PH UA (POCT) 6.0 4.5 - 8.0 PROTEIN UA (POCT) Negative Negative mg/dL UROBILINOGEN UA (POCT) 0.2 Normal E.U./dL NITRITE UA (POCT) Negative Negative LEUKOCYTES UA (POCT) Negative Negative COLOR UA (POCT) Dark yellow CLARITY UA (POCT) Clear PROCEDURES: PVR - 0 ml ASSESSMENT/PLAN: 1. Benign prostatic hyperplasia without lower urinary tract symptoms (N40.0) - No current lower urinary tract symptoms. Discussed occasional nocturnal e (more content not included)... Normal [facility] UA DIP, URINE (POC)on 2024 BILIRUBIN UA (POCT) Negative Negative [facility] CLARITY UA (POCT) Clear [facility] COLOR UA (POCT) Dark yellow [facility] GLUCOSE UA (POCT) Negative Negative mg/dL [facility] Hemoglobin Ql (U) Negative Negative [facility] KETONE UA (POCT) Negative Negative mg/dL [facility] LEUKOCYTES UA (POCT) Negative Negative [facility] NITRITE UA (POCT) Negative Negative [facility] PH UA (POCT) 6 4.5 - 8.0 [facility] Protein Ql (U) Negative Negative mg/dL [facility] SPECIFIC GRAVITY UA (POCT) 1.02 1.005 - 1.030 [facility] UROBILINOGEN UA (POCT) 0.2 Normal E.U./dL [facility] Location:[facility], [address], [place], [address] [facility] POINT OF CARE [facility] PSA [facility] 04-09-2025 Prostate specific Ag [Mass/Vol] 0.49 ng/mL Normal <2.60 [facility] Comment on above: Order Comment: Speci men Type: BLOOD SPECIMEN Ordering Facility: [facility] Address: [address] [place] [address] Result Comment: Camila l PSA test methodology used is the Electrochemiluminescence Immunoassay by [employer]. Total PSA values by differing methodologies cannot be interchanged. Performed By: #### 2 857-1 #### [facility] CLIA [id number] [address] STATES OF SID ANES POSTPROC EVALon 025 ANES POSTPROC EVAL HNO ID: [id number] Author: CELESTE MCKEON APRN.BACK JOINER Service: ? Author Type: Nurse Dredge Or [place]ge [place] Hand Type: Anesthesia Postprocedure Evaluation Filed: 03/21/2025 12:21 Note Text: POST ANESTHESIA EVALUATION NOTE : 1965 Procedure Summary Date: 03/21/25 Room / Location: [facility] Anesthesia Start: 906 Anesthesia Stop: 945 Procedures: EGD DIAGNOSTIC COLONOSCOPY SCREENING Diagnosis: Eosinophilic esophagitis Dysphagia, unspecified type Screening for colon cancer (Dysphagia) (High risk colon cancer surveillance: Personal history of colonic polyps) Scheduled Providers: Jessy Hazel Jr., MD; John Newman RN Responsible Provider: Celeste Mckeon APRN.BACK JOINER Anesthesia Type: MAC ASA Status: 2 Anesthesia Type: MAC Last Vitals Vitals Value Taken Time BP 136/87 03/21/25 1015 Temp 03/21/25 1221 Pulse 73 03/21/25 1016 Resp 18 03/21/25 1000 SpO2 95 % 03/21/25 1016 Vitals shown include unfiled device data. Post Anesthesia Patient Status Patient Evaluation: bedside. Anticipated Disposition: phase 2 then home. Neurological Status: aware and responsive. Pulmonary Status: breathing comfortably on room air Airway Control: returned to baseline unsupported. Cardiovascular Status: stable. Pain Management: clinically adequate Postoperative Hydration: acceptable. Intraoperative Events: no significant anesthesia events Post Operative Nausea/Vomiting Status: no significant post operative nausea or vomiting Anesthesia Observations No Documentation SIGNATURE: Celeste Mckeon APRN.BACK JOINER PATIENT NAME: Corinne Garcia DATE: March 21, 2025 TIME: 12:21 PM CSN: [id number] Normal [facility] ANES PRE-OPon 03-21-2025 ANES PRE-OP HNO ID: [id number] Author: CELESTE MCKEON APRN.BACK JOINER Service: ? Author Type: Nurse Dredge Or [employer]ge [place] Hand Type: Anesthesia Preprocedure Evaluation Filed: 03/21/2025 08:56 Note Text: ANESTHESIOLOGY DAY OF SURGERY NOTE : 1965 Procedure Information Date/Time: 03/21/25 0900 Scheduled providers: Jessy Hazel Jr., MD; John Newman RN Procedures: EGD DIAGNOSTIC COLONOSCOPY SCREENING Location: [facility] Estimated body mass index is 38.74 kg/m? as calculated from the following: Height as of this encounter: 177.8 cm (5' 10). Weight as of this encounter: 122.5 kg (270 lb). Most recent hematocrit and potassium results: Hematocrit 47.5 04/10/2024 Potassium 4.2 04/10/2024 Relevant Problems CARDIO (+) Incomplete right bundle branch block (RBBB) I - PHYSICAL EVALUATION AIRWAY Patient intubated: No. Tracheostomy tube not present Mallampati: II. TM distance: >3 FB. Neck ROM: full ROM without neurological symptoms. Mouth opening: adequate. Short neck: yes. Thick neck: yes Baron present: no Lip Bite Test: II Microretrognathia/Micronagthi a/Recessed Chin: No DENTAL Dental findings: teeth intact. Additional exam findings: no II - ANESTHESIA PLAN ASA Score: 2 Anesthetic Plan: MAC The patient is not a current smoker. NPO Status: adequate Beta Salty Monitoring Plan Monitoring plan: standard ASA. Post Procedure Analgesic Plan Postoperative analgesic plan: per surgical service. Informed Consent Anesthetic risks, benefits, alternatives, personnel and consent discussed: yes. Patient / Responsible Democrat agrees to proceed: yes Patient / Surrogate agrees to blood products: blood products not planned DNR status not reviewed with patient and/or family prior to surgery. Significant changes in the patient condition since the History and Physical, not otherwise documented in primary service progress note: no. Potential Anesthesia issues that may suggest increased risk of complications or contraindication to planned procedure: none. Discussed the possibility of lip / dental damage: yes Vitals Value Taken Time BP 145/86 03/21/25 0847 Pulse 75 03/21/25 0847 Resp 16 03/21/25 0847 Temp 36.2 ?C (97.2 ?F) 03/21/25 0847 SpO2 96 % 03/21/2547 Outpatient Medications as of 03/21/2025 Medication Sig metoprolol succinate ER (TOPROL XL) 25 mg 24 hr tablet Take 1 tablet by mouth once daily. acetaminophen (TYLENOL EXTRA STRENGTH) 500 mg tablet Take 500 mg by mouth every 8 hours as needed for pain. naproxen (NAPROSYN) 250 mg tablet Take 250 mg by mouth as needed. No current facility-administered medications on file as of 03/21/2025. I have interviewed and examined the patient. I have reviewed the medical record and/or the pre-anesthesia evaluation, pertinent labs, and test results. This contains updated information obtained within 48 hours of Surgery/Procedure. SIGNATURE: Celeste Mckeon APRN.CRNA PATIENT NAME: Corinne Garcia DATE: March 21, 2025 TIME: 8:55 AM CSN: [id number] Normal [facility] Colonoscopyon 03-21-2025 Colonoscopy [facility] Gastrointestinal Endoscopy Patient Name: Corinne Garcia Procedure Date: 03/21/2025 9:24 AM Date of : 1965 Admit Type: Outpatient Age: 60 Gender: Male Note Status: Finalized Attending MD: Jessy Hazel Jr, MD, [id number] Procedure: Colonoscopy Indications: High risk colon cancer surveillance: Personal history of colonic polyps Providers: Jessy Hazel Jr, MD Patient Profile: Last Colonoscopy: March 2018. Referring Physician: Basia Clement (Referring MD) Medicines: Monitored Anesthesia Care Complications: No immediate complications. Requesting Provider: Procedure: Pre-Anesthesia Assessment: - Prior to the procedure, a History and Physical was performed, and patient medications and allergies were reviewed. The patient's tolerance of previous anesthesia was also reviewed. The risks and benefits of the procedure and the sedation options and risks were discussed with the patient. All questions were answered, and informed consent was obtained. Prior Anticoagulants: The patient has taken no anticoagulant or antiplatelet agents. ASA Grade Assessment: II - A patient with mild systemic disease. After reviewing the risks and benefits, the patient was deemed in satisfactory condition to undergo the procedure. After I obtained informed consent, the scope was passed under direct vision. Throughout the procedure, the patient's blood pressure, pulse, and oxygen saturations were monitored continuously. The Colonoscope was introduced through the anus and advanced to the cecum, identified by appendiceal orifice and ileocecal valve. The colonoscopy was performed without difficulty. The patient tolerated the procedure well. The quality of the bowel preparation was adequate. The ileocecal valve, appendiceal orifice, and rectum were photographed. Scope Withdrawal Time: 0 hours 8 minutes 19 seconds Total Procedure Duration: 0 hours 12 minutes 53 seconds Findings: No masses on digital rectal exam A 4 mm polyp was found in the transverse colon. The polyp was sessile. The polyp was removed with a cold biopsy forceps. Resection and retrieval were complete. The exam was otherwise normal throughout the examined colon. Moderate Sedation: MAC anesthesia was administered by the anesthesia team. Impression: - One 4 mm polyp in the transverse colon, removed with a cold biopsy forceps. Resected and retrieved. Recommendation: - Repeat colonoscopy in 5 years for surveillance. - Await pathology results. - Patient has a contact number available for emergencies. The signs and symptoms of potential delayed complications were discussed with the patient. Return to normal activities tomorrow. Written discharge instructions were provided to the patient. - Resume previous diet. - Continue present medications. Procedure Code(s): --- Professional --- 22465, Colonoscopy, flexible; with biopsy, single or multiple Diagnosis Code(s): --- Professional --- Z12.11, Encounter for screening for malignant neoplasm of colon Z86.0100, Personal history of colon polyps, unspecified D12.3, Benign neoplasm of transverse colon (hepatic flexure or splenic flexure) CPT copyright 2020 [employer]. All rights reserved. The codes documented in this report are preliminary and upon hospice clinical supervisor review may be revised to meet current compliance requirements. Attending Participation: I personally performed the entire procedure. MD Jessy Jerez Jr, MD 03/21/2025 9:50:03 AM This report has been signed electronically by Jessy Hazel Jr, MD Number of Addenda: 0 Note Initiated On: 03/21/2025 9:24 AM Procedure Start: 9:32:45 AM Procedure End: 9:45:38 AM [facility] Colonoscopy Study observatio non 03-21-2025 [facility] Gastrointestinal Endoscopy Patient Name: Corinne Garcia Procedure Date: 03/21/2025 9:24 AM Date of : 1965 Admit Type: Outpatient Age: 60 Gender: Male Note Status: Finalized Attending MD: Jessy Hazel Jr, MD, [id number] Procedure: Colonoscopy Indications: High risk colon cancer surveillance: Personal history of colonic polyps Providers: Jessy Hazel Jr, MD Patient Profile: Last Colonoscopy: March 2018. Referring Physician: Basia Clement (Referring ) Medicines: Monitored Anesthesia Care Complications: No immediate complications. Requesting Provider: Procedure: Pre-Anesthesia Assessment: - Prior to the procedure, a History and Physical was performed, and patient medications and allergies were reviewed. The patient's tolerance of previous anesthesia was also reviewed. The risks and benefits of the procedure and the sedation options and risks were discussed with the patient. All questions were answered, and informed consent was obtained. Prior Anticoagulants: The patient has taken no anticoagulant or antiplatelet agents. ASA Grade Assessment: II - A patient with mild systemic disease. After reviewing the risks and benefits, the patient was deemed in satisfactory condition to undergo the procedure. After I obtained informed consent, the scope was passed under direct vision. Throughout the procedure, the patient's blood pressure, pulse, and oxygen saturations were monitored continuously. The Colonoscope was introduced through the anus and advanced to the cecum, identified by appendiceal orifice and ileocecal valve. The colonoscopy was performed without difficulty. The patient tolerated the procedure well. The quality of the bowel preparation was adequate. The ileocecal valve, appendiceal orifice, and rectum were photographed. Scope Withdrawal Time: 0 hours 8 minutes 19 seconds Total Procedure Duration: 0 hours 12 minutes 53 seconds Findings: No masses on digital rectal exam A 4 mm polyp was found in the transverse colon. The polyp was sessile. The polyp was removed with a cold biopsy forceps. Resection and retrieval were complete. The exam was otherwise normal throughout the examined colon. Moderate Sedation: MAC anesthesia was administered by the anesthesia team. Impression: - One 4 mm polyp in the transverse colon, removed with a cold biopsy forceps. Resected and retrieved. Recommendation: - Repeat colonoscopy in 5 years for surveillance. - Await pathology results. - Patient has a contact number available for emergencies. The signs and symptoms of potential delayed complications were discussed with the patient. Return to normal activities tomorrow. Written discharge instructions were provided to the patient. - Resume previous diet. - Continue present medications. Procedure Code(s): --- Professional --- 90061, Colonoscopy, flexible; with biopsy, single or multiple Diagnosis Code(s): --- Professional --- Z12.11, Encounter for screening for malignant neoplasm of colon Z86.0100, Personal history of colon polyps, unspecified D12.3, Benign neoplasm of transverse colon (hepatic flexure or splenic flexure) CPT copyright 2020 [employer]. All rights reserved. The codes documented in this report are preliminary and upon hospice clinical supervisor review may be revised to meet current compliance requirements. Attending Participation: I personally performed the entire procedure. MD Jessy Jerez Jr, MD 03/21/2025 9:50:03 AM This report has been signed electronically by Jessy Hazel Jr, MD Number of Addenda: 0 Note Initiated On: 03/21/2025 9:24 AM Procedure Start: 9:32:45 AM Procedure End: 9:45:38 AM [facility] Radiology Study observation (narrative) [facility] EGD Study observation Narrat reneon 03-21-2025 [facility] Gastrointestinal Endoscopy Patient Name: Corinne Garcia Procedure Date: 03/21/2025 8:53 AM Date of : 1965 Admit Type: Outpatient Age: 60 Gender: Male Note Status: Finalized Attending MD: Jessy Hazel Jr, MD, [id number] Procedure: Upper GI endoscopy Indications: Dysphagia to solids such as chicken and bread (occurring every two weeks or so), Follow-up of eosinophilic esophagitis Providers: Jessy Hazel Jr, MD Patient Profile: This is a 60 year old male. Referring Physician: Basia Clement (Referring MD) Medicines: Monitored Anesthesia Care Complications: No immediate complications. Requesting Provider: Procedure: Pre-Anesthesia Assessment: - Prior to the procedure, a History and Physical was performed, and patient medications and allergies were reviewed. The patient's tolerance of previous anesthesia was also reviewed. The risks and benefits of the procedure and the sedation options and risks were discussed with the patient. All questions were answered, and informed consent was obtained. Prior Anticoagulants: The patient has taken no anticoagulant or antiplatelet agents. ASA Grade Assessment: II - A patient with mild systemic disease. After reviewing the risks and benefits, the patient was deemed in satisfactory condition to undergo the procedure. After obtaining informed consent, the endoscope was passed under direct vision. Throughout the procedure, the patient's blood pressure, pulse, and oxygen saturations were monitored continuously. The Endoscope was introduced through the mouth, and advanced to the second part of duodenum. The upper GI endoscopy was accomplished with ease. The patient tolerated the procedure well. Total Procedure Duration: 0 hours 8 minutes 53 seconds Findings: Mucosal changes were found in the entire esophagus. Esophageal findings were graded using the Eosinophilic Esophagitis Endoscopic Reference Score (EoE-EREFS) as: Edema Grade 1 Present (decreased clarity or absence of vascular markings), Rings Grade 2 Moderate (distinct rings that do not occlude passage of diagnostic 8-10 mm endoscope), Exudates Grade 0 None (no white lesions seen), Furrows Grade 1 Mild (vertical lines without visible depth) and Stricture present. Biopsies were obtained from the proximal and distal esophagus with cold forceps for histology of suspected eosinophilic esophagitis. A 1 cm hiatal hernia was present. One benign-appearing, intrinsic moderate stenosis was found at the gastroesophageal junction. This stenosis measured 1.2 cm (inner diameter) x less than one cm (in length). The stenosis was traversed. Biopsies were taken with a cold forceps for histology. A TTS dilator was passed through the scope. Dilation with a 12-13.5-15 mm x 5.5 cm CRE balloon (to a maximum balloon size of 15 mm) dilator was performed. The dilation site was examined and showed complete resolution of luminal narrowing. The entire examined stomach was normal. The examined duodenum was normal. Moderate Sedation: MAC anesthesia was administered by the anesthesia team. Impression: - Esophageal mucosal changes consistent with eosinophilic esophagitis. - 1 cm hiatal hernia. - Benign-appearing esophageal stenosis. This could be related to GERD or EOE. Biopsied. Dilated with a 12-13.5-15 mm x 5.5 cm CRE balloon (to a maximum balloon size of 15 mm). - Normal stomach. - Normal examined duodenum. - Biopsies were taken with a cold forceps for evaluation of eosinophilic esophagitis. Recommendation: - Await pathology results. Consider addition of daily PPI (Prilosec 20 mg daily or equivalent) particularly if changes suggestive of GERD seen on biopsies Procedure Code(s): --- Professional --- 82130, Esophagogastroduodenoscopy, flexible, transoral; with transendoscopic balloon dilation of esophagus (less than 30 mm (more content not included)... [facility] Radiology Study observation (narrative) [facility] HISTORY PHYSICALon HISTORY PHYSICAL HNO ID: [id number] Author: JESSY HAZEL JR, MD Service: Gastroenterology Author Type: Physician Type: H&P Filed: 03/21/2025 09:03 Note Text: HISTORY AND PHYSICAL EXAM SERVICE DATE: 03/21/2025 SERVICE TIME: 9:02 AM Subjective HPI: This is a 60 year old male who presents with EOE, polyps PAST ANESTHESIA HISTORY: No history of adverse event PAST MEDICAL HISTORY Diagnosis Date BPH with obstruction/lower urinary tract symptoms Chest pain at rest Dysphagia Eosinophilic esophagitis Obesity PAST SURGICAL HISTORY Procedure Laterality Date COLONOSCOPY FLX DX W/COLLJ SPEC WHEN PFRMD 03/04/2015 Colonoscopy ESOPHAGOGASTRODUODENOSCOPY TRANSORAL DIAGNOSTIC 03/04/2015 EGD ESOPHAGOGASTRODUODENOSCOPY TRANSORAL DIAGNOSTIC 04/02/2018 EGD EXC CSTIC HYGROMA AX/CRV W/O DP NEUROVASC DSJ 1979' back of neck, in office. PAST SURGICAL HISTORY OF left knee repair, meni TONSILLECTOMY AND ADENOIDECTOMY Prior to Admission medications as of 03/21/25 0858 Medication Sig Last Dose Taking metoprolol succinate ER (TOPROL XL) 25 mg 24 hr tablet Take 1 tablet by mouth once daily. 03/20/2025 Yes acetaminophen (TYLENOL EXTRA STRENGTH) 500 mg tablet Take 500 mg by mouth every 8 hours as needed for pain. 03/20/2025 Yes naproxen (NAPROSYN) 250 mg tablet Take 250 mg by mouth as needed. 03/19/2025 ALLERGIES Allergen Reactions Penicillins Hives Objective PHYSICAL EXAM: The remainder of the physical exam is noncontributory. AIRWAY: Mouth opening greater than 3 fingerbreadths: Yes Neck Full Range of Motion: Yes LUNGS: Lungs clear to auscultation CARDIAC: Regular rhythm,Regular rate Assessment/Plan ASA Class: ASA Class: Patient with mild systemic disease Active Problems: * No active hospital problems. * Resolved Problems: * No resolved hospital problems. * Exogenous Class 2 Obesity Medication and Non-Pharmacologic VTE Prophylaxis/Anticoagulants VTE Prophylaxis: VTE prophylaxis appropriate Provisional Diagnosis/Treatment Plan: EOE, polyps Sedation Goal: Deep SIGNATURE: Jessy Hazel Jr, MD PATIENT NAME: Corinne Garcia DATE: March 21, 2025 TIME: 9:02 AM [facility] NURSING PROGon 03-21-2025 NURSING PROG HNO ID: [id number] Author: GERSON RAMON RN Service: Nursing Author Type: Registered Nurse Type: Nursing Progress Note Filed: 03/21/2025 09:57 Note Text: POST OP LEARNING RESPONSE INSTRUCTION PROVIDED TO: Patient and Significant Other METHOD OF INSTRUCTION: Written instruction/Handouts Verbal instruction PATIENT / FAMILY RESPONSE: Verbalizes understanding of: POST-PROCEDURE INSTRUCTIONS-Correct actions to take to reduce post procedure complications FOLLOW-UP PLAN: Patient instructed to call with any further issues SUPPLEMENTAL MATERIAL: Procedure discharge instructions REFERRAL (RECOMMENDATION): None Electronically Signed By: Gerson Ramon RN In Department: [facility] ENDOSCOPY [facility] NURSING PROG HNO ID: [id number] Author: GERSON RAMON RN Service: Nursing Author Type: Registered Nurse Type: Nursing Progress Note Filed: 03/21/2025 08:32 Note Text: PRE OP LEARNING ASSESSMENT PROCEDURE/SURGERY: GI PROCEDURES: Colonoscopy READINESS TO LEARN COGNITIVE ABILITY: Alert and oriented MOTIVATION TO LEARN: Interested FAMILY SUPPORT: None - Unavailable/disinterested PATIENT LEARNS BEST BY: Written Instruction - Hand-outs Verbal Instruction FACTORS AFFECTING LEARNING: None PHYSICAL LIMITATIONS AFFECTING LEARNING: None Electronically Signed By: Gerson Ramon RN In Department: [facility] ENDOSCOPY [facility] Pathology biopsy report Clayton (Tiss)on 03-21-2025 AP DISCLAIMER [facility] Comment on above: Order Comment: Speci men Type: TISSUE SPECIMENOrdering Facility: [facility] Address: [address] [place] [address] Result Comment: Cuauhtemoc kee Developed Test (LDT) Disclaimer: Performance characteristics of immunohistochemical, immunofluorescent, and chromogenic in-situ hybridization tests have been determined by the performing laboratory within [facility]'s Lakhwinder Leónch Pathology and Laboratory Medicine Department ([facility], [facility], [facility], [facility], [facility], [facility], or [facility]) in a manner consistent with CLIA requirements. One or more of these tests may not have been cleared or approved by the FDA. [facility] is regulated under CLIA as qualified to perform high-complexity testing. These tests are used for clinical purposes. These should not be regarded as investigational or for research. Positive and negative controls stain appropriately. Performed By: #### 6 6121-5 ####[facility] LAB[facility]IA [id number] [place] [id number] [place] CASE REPORT [facility] Comment on above: Order Comment: Speci men Type: TISSUE SPECIMENOrdering Facility: [facility] Address: [address] [place] [address] Result Comment: Surg [facility] Pathology Report Case: [id number] Authorizing Provider: Jessy Hazel Jr., MD Collected: 03/21/2025 09:15 AM Ordering Location: [facility] Endoscopy Received: 03/21/2025 11:45 PM [facility] Pathologist: Norris Orozco MD Specimens: A) - Esophagus, Biopsy, GE junction stricture, EOE v reflux B) - Esophagus, Distal, Biopsy, r/o EOE C) - Esophagus, Proximal, Biopsy, r/o EOE D) - Colon, Transverse, Polyp, r/o adenoma Performed By: #### 6 6121-5 ####[facility] LABCLIA [id number] [place] [id number] [place] FINAL DIAGNOSIS [facility] Comment on above: Order Comment: Speci men Type: TISSUE SPECIMENOrdering Facility: [facility] Address: [address] [place] [address] Result Comment: Orville ortiz, GE junction stricture, biopsy: - Squamous mucosa with reflux-type changes. - Cardia-type mucosa with mild chronic inflammation. - No intestinal metaplasia identified. B. Esophagus, distal, biopsy: - Squamous mucosa with reactive changes and increased intraepithelial eosinophils (up to 22 eosinophils per high power field). C. Esophagus, proximal, biopsy: - Squamous mucosa with reactive changes and increased intraepithelial eosinophils (up to 16 eosinophils per high power field). D. Colon, transverse, polyp, biopsy: - Fragments of tubular adenoma. at 1447 EDT Performed By: #### 6 6121-5 ####[facility] LABCLIA [id number] [address] [place] FINAL PERFORMING LAB [facility] Comment on above: Order Comment: Speci men Type: TISSUE SPECIMENOrdering Facility: [facility] Address: [address] [place] [address] Result Comment: Diag nostic interpretation performed at: [facility], [address] [place] [address] CLIA# [id number] Manager Foreign: Bert Mondragon MD Performed By: #### 6 6121-5 ####[facility] LABCLIA [id number] [address] OF [facility] GROSS DESCRIPTION [facility] Comment on above: Order Comment: Speci men Type: TISSUE SPECIMENOrdering Facility: [facility] Address: [address] [place] [address] Result Comment: A. E sophagus, Biopsy Received in formalin are multiple pieces of degroot, soft tissue aggregating to 1.7 x 0.2 x 0.1 cm. Totally submitted in one cassette. B. Esophagus, Distal, Biopsy Received in formalin are multiple pieces of degroot, soft tissue aggregating to 2.0 x 0.1 x 0.1 cm. Totally submitted in one cassette. C. Esophagus, Proximal, Biopsy Received in formalin are multiple pieces of degroot, soft tissue aggregating to 1.0 x 0.2 x 0.1 cm. Totally submitted in one cassette. D. Colon, Transverse, Polyp Received in formalin are two pieces of degroot, soft tissue aggregating to 1.0 x 0.2 x 0.1 cm. Totally submitted in one cassette. Gross examination performed at [facility], [address] [place] [address] [facility] 03/22/2025 1:27 AM Performed By: #### 6 6121-5 ####[facility] LABJAMES [id number] [facility] [address] [address] [place] Upper GI endoscopyon 025 Upper GI endoscopy [facility] Gastrointestinal Endoscopy Patient Name: Corinne Garcia Procedure Date: 03/21/2025 8:53 AM Date of : 1965 Admit Type: Outpatient Age: 60 Gender: Male Note Status: Finalized Attending MD: Jessy Hazel Jr, MD, [id number] Procedure: Upper GI endoscopy Indications: Dysphagia to solids such as chicken and bread (occurring every two weeks or so), Follow-up of eosinophilic esophagitis Providers: Jessy Hazel Jr, MD Patient Profile: This is a 60 year old male. Referring Physician: Basia Clement (Referring MD) Medicines: Monitored Anesthesia Care Complications: No immediate complications. Requesting Provider: Procedure: Pre-Anesthesia Assessment: - Prior to the procedure, a History and Physical was performed, and patient medications and allergies were reviewed. The patient's tolerance of previous anesthesia was also reviewed. The risks and benefits of the procedure and the sedation options and risks were discussed with the patient. All questions were answered, and informed consent was obtained. Prior Anticoagulants: The patient has taken no anticoagulant or antiplatelet agents. ASA Grade Assessment: II - A patient with mild systemic disease. After reviewing the risks and benefits, the patient was deemed in satisfactory condition to undergo the procedure. After obtaining informed consent, the endoscope was passed under direct vision. Throughout the procedure, the patient's blood pressure, pulse, and oxygen saturations were monitored continuously. The Endoscope was introduced through the mouth, and advanced to the second part of duodenum. The upper GI endoscopy was accomplished with ease. The patient tolerated the procedure well. Total Procedure Duration: 0 hours 8 minutes 53 seconds Findings: Mucosal changes were found in the entire esophagus. Esophageal findings were graded using the Eosinophilic Esophagitis Endoscopic Reference Score (EoE-EREFS) as: Edema Grade 1 Present (decreased clarity or absence of vascular markings), Rings Grade 2 Moderate (distinct rings that do not occlude passage of diagnostic 8-10 mm endoscope), Exudates Grade 0 None (no white lesions seen), Furrows Grade 1 Mild (vertical lines without visible depth) and Stricture present. Biopsies were obtained from the proximal and distal esophagus with cold forceps for histology of suspected eosinophilic esophagitis. A 1 cm hiatal hernia was present. One benign-appearing, intrinsic moderate stenosis was found at the gastroesophageal junction. This stenosis measured 1.2 cm (inner diameter) x less than one cm (in length). The stenosis was traversed. Biopsies were taken with a cold forceps for histology. A TTS dilator was passed through the scope. Dilation with a 12-13.5-15 mm x 5.5 cm CRE balloon (to a maximum balloon size of 15 mm) dilator was performed. The dilation site was examined and showed complete resolution of luminal narrowing. The entire examined stomach was normal. The examined duodenum was normal. Moderate Sedation: MAC anesthesia was administered by the anesthesia team. Impression: - Esophageal mucosal changes consistent with eosinophilic esophagitis. - 1 cm hiatal hernia. - Benign-appearing esophageal stenosis. This could be related to GERD or EOE. Biopsied. Dilated with a 12-13.5-15 mm x 5.5 cm CRE balloon (to a maximum balloon size of 15 mm). - Normal stomach. - Normal examined duodenum. - Biopsies were taken with a cold forceps for evaluation of eosinophilic esophagitis. Recommendation: - Await pathology results. Consider addition of daily PPI (Prilosec 20 mg daily or equivalent) particularly if changes suggestive of GERD seen on biopsies Procedure Code(s): --- Professional --- 51971, Esophagogastroduodenoscopy, flexible, transoral; with transendoscopic balloon dilation of esophagus (less than 30 mm diameter) 05938, 59, Esophagogastroduodenoscopy, flexible, transoral; with biopsy, single or multiple Diagnosis Code(s): --- Professional --- K22.89, Other specified disease of esophagus K44.9, Diaphragmatic hernia without obstruction or gangrene K22.2, Esophageal obstruction R13.10, Dysphagia, unspecified K20.0, Eosinophilic esophagitis CPT copyright 2020 [employer]. All rights reserved. The codes documented in this report are preliminary and upon hospice clinical supervisor review may be revised to meet current compliance requirements. Attending Participation: I personally performed the entire procedure. MD Jessy Jerez Jr, MD 03/21/2025 9:29:02 AM This report has been signed electronically by Jessy Hazel Jr, MD Number of Addenda: 0 Note Initiated On: 03/21/2025 8:53 AM Procedure Start: 9:12:26 AM Procedure End: 9:21:19 AM [facility] CNPNon 12-02-2024 CNPN Telephone (GENSME) CORINNE GARCIA ([id number]) 1965 M Date Time Provider Department 12/02/24 CUATE WRIGHT During your visit today, we recorded the following information about you: ValdovinosJames 12/02/2024 11:14 AM Signed Patient called has colonoscopy scheduled with Dr. Wright and has a brace on his left arm. Its a fracture. Is this going to be a problem the day of his colonoscopy? Eugenia Cruz RN 12/02/2024 11:17 AM Signed Please advise regrading arm fracture Cheri Flower PA-C 12/02/2024 1:19 PM Signed He will need to lay on left side. Would probably be best to reschedule. Eugenia Cruz RN 12/02/2024 1:53 PM Signed Spoke with patient and advised of information per provider. Patient verbalized understanding. No further questions at this time. Advised to call if any future problems or concerns. Patient debates that he sleeps on his left side and that his wrist is healing. He is wearing a brace with velcro. Had MRI done and he does not require a cast. MRI 11/21/24 Impression IMPRESSION: Healing nondisplaced intra-articular distal radius fracture Evelio says he would prefers that he would to have the colonoscopy done this Monday since he took vacation day for to do the prep and Monday to have colonoscopy. He wants to know what provider thinks? He would like to reschedule toward end december if possible. Please advise [phone] (home) [phone] (cell) Would like a call back from [employer] solution architect James today if the colonoscopy has to be rescheduled. Eugenia Cruz RN 12/03/2024 2:20 PM Addendum Spoke with Cheri Flower Pa-C. Patient is advised to wear brace during procedure. He is advised that he can proceed if anesthesia is ok with it. Evelio states he may wait until end december for his colonoscopy and call James back tomorrow after he checks his work schedule to rearrange his time off. Shelli Kaye 12/05/2024 12:30 PM Signed Patient wants to wait AND schedule procedure to after he is healed from his fracture. He will call us back when he has his calendar available. Allergies As of Date: 12/02/2024 Noted Allergy Reaction PENICILLINS 07/27/2005 4 - Hives Date Reviewed: 11/11/2024 Reviewed by: Courtney Rae MA - Fully Assessed Prescriptions as of 12/05/2024 - metoprolol succinate ER (TOPROL XL) 25 mg 24 hr tablet Take 1 tablet by mouth once daily. - acetaminophen (TYLENOL EXTRA STRENGTH) 500 mg tablet Take 500 mg by mouth every 8 hours as needed for pain. - naproxen (NAPROSYN) 250 mg tablet Take 250 mg by mouth as needed. Problem List As Of Date 12/02/2024 Noted Resolved Plantar WART [B07.8] 07/27/2005 MIXED HYPERLIPIDEMIA [E78.2] 05/22/2006 Obesity [E66.9] 10/26/2012 Dysphagia [R13.10] Chest pain [R07.9] 02/23/2015 Special screening for malignant neoplasms, colo*03/04/2015 Dysphagia, unspecified(787.20) [R13.10] 03/04/2015 Eosinophilic esophagitis [K20.0] Incomplete right bundle branch block (RBBB) [I4*11/28/2024 Elevated blood pressure reading without diagnos*11/28/2024 Abnormal electrocardiography [R94.31] 11/28/2024 Encounter Status:Closed by JAMES VALDOVINOS on 12/02/24 [facility] 11-22-2024 CNPN Telephone (FAMPWS) PHILIPCORINNE Evans ([id number]) 1965 M Date Time Provider Department 11/22/24 LUIS ENRIQUE LANDA FAMPWS During your visit today, we recorded the following information about you: Luis Enrique Landa MD 11/22/2024 8:23 AM Signed Please notify patient that his MRI shows a distal radius non displaced fracture, with intact tendons. Where is he with regards to seeing Ortho, I believe he had an appt with [facility] at some point. MD Butch Gong Kathryn, MA 11/22/2024 9:40 AM Signed FYI: Spoke with pt, he saw [facility] this past Mon who put him in a better brace and the provider stated that if his issue was what was confirmed through MRI then he would just need a cast placed at his next visit on 11/27/24. Pt dropped off copy of the MRI report to [facility] yesterday. TIFFANIE Forbes Mark D, MD 11/22/2024 10:46 AM Signed Noted Luis Enrique Landa MD Allergies As of Date: 11/22/2024 Noted Allergy Reaction PENICILLINS 07/27/2005 4 - Hives Date Reviewed: 11/11/2024 Reviewed by: Courtney Rae MA - Fully Assessed Reason for Visit: Results [95] Prescriptions as of 11/22/2024 - metoprolol succinate ER (TOPROL XL) 25 mg 24 hr tablet Take 1 tablet by mouth once daily. - acetaminophen (TYLENOL EXTRA STRENGTH) 500 mg tablet Take 500 mg by mouth every 8 hours as needed for pain. - naproxen (NAPROSYN) 250 mg tablet Take 250 mg by mouth as needed. Problem List As Of Date 11/22/2024 Noted Resolved Plantar WART [B07.8] 07/27/2005 MIXED HYPERLIPIDEMIA [E78.2] 05/22/2006 Obesity [E66.9] 10/26/2012 Dysphagia [R13.10] Atypical chest pain [R07.89] 02/23/2015 Special screening for malignant neoplasms, colo*03/04/2015 Dysphagia, unspecified(787.20) [R13.10] 03/04/2015 Eosinophilic esophagitis [K20.0] Encounter Status:Closed by LUIS ENRIQUE LANDA on 11/22/24 [facility] MR Forearm - left WO contras ton 11-21-2024 IMPRESSION: Healing nondisplaced intra-articular distal radius fracture. Gas Torch Brazier: PSCNgoc Transcribe Date/Time: Nov 21 2024 9:31A Dictated by : JAXON CRAFT MD This examination was interpreted and the report reviewed and electronically signed by: EDWARDO RENAE MD on Nov 21 2024 3:33PM [facility] DIVISION OF RADIOLOGY * * *Final Report* * * DATE OF EXAM: Nov 21 2024 8:16AM [facility] 0218 - MRI LOWER ARM WO IVCON LT / PROCEDURE REASON: Left arm pain * * * * Physician Interpretation * * * * EXAMINATION: MRI LOWER ARM WO IVCON LT HISTORY: Left arm pain INJURED PULL STARTING A GENERATOR AND IT RECOILED, PAIN DISTAL LT FOREARM ANTERIOR ASPECT TECHNIQUE: Routine MRI of the left lower arm without contrast COMPARISON: Radiographs 11/02/2024 and 04/29/2023 RESULT: Subacute nondisplaced distal radius fracture with intra-articular extension to the radiocarpal articular surface. Associated marrow edema like signal extends into the distal radial diaphysis. Marrow signal otherwise normal. Large bocuz-ak-xvgw images of the wrist and elbow joints are within normal limits. No dislocation. Mild reactive intramuscular edema extending into the pronator quadratus. Mild reactive surrounding subcutaneous edema more pronounced and extending over the dorsal wrist. Imaged tendons are intact. Neurovascular structures unremarkable. No other subcutaneous soft tissue abnormality. Localizer images: No significant additional findings. DIVISION OF RADIOLOGY Provider, [facility] - 11/21/2024 * * *Final Report* * * DATE OF EXAM: Nov 21 2024 8:16AM [facility] 0218 - MRI LOWER ARM WO IVCON LT / PROCEDURE REASON: Left arm pain * * * * Physician Interpretation * * * * EXAMINATION: MRI LOWER ARM WO IVCON LT HISTORY: Left arm pain INJURED PULL STARTING A GENERATOR AND IT RECOILED, PAIN DISTAL LT FOREARM ANTERIOR ASPECT TECHNIQUE: Routine MRI of the left lower arm without contrast COMPARISON: Radiographs 11/02/2024 and 04/29/2023 RESULT: Subacute nondisplaced distal radius fracture with intra-articular extension to the radiocarpal articular surface. Associated marrow edema like signal extends into the distal radial diaphysis. Marrow signal otherwise normal. Large jnpxm-cx-ssmp images of the wrist and elbow joints are within normal limits. No dislocation. Mild reactive intramuscular edema extending into the pronator quadratus. Mild reactive surrounding subcutaneous edema more pronounced and extending over the dorsal wrist. Imaged tendons are intact. Neurovascular structures unremarkable. No other subcutaneous soft tissue abnormality. Localizer images: No significant additional findings. IMPRESSION IMPRESSION: Healing nondisplaced intra-articular distal radius fracture. Gas Torch Brazier: PSCB Transcribe Date/Time: Nov 21 2024 9:31A Dictated by : JAXON CRAFT MD This examination was interpreted and the report reviewed and electronically signed by: EDWARDO RENAE MD on Nov 21 2024 3:33PM EST [facility] Radiology Study observation (narrative) [facility] MR Forearm - left WO contras tOrdered By: [facility] Provider on 11-21-2024 [facility] MRI LOWER ARM WO IVCON LTon 11-21-2024 MRI LOWER ARM WO IVCON LT * * *Final Report* * * DATE OF EXAM: Nov 21 2024 8:16AM [facility] 0218 - MRI LOWER ARM WO IVCON LT / PROCEDURE REASON: Left arm pain * * * * Physician Interpretation * * * * EXAMINATION: MRI LOWER ARM WO IVCON LT HISTORY: Left arm pain INJURED PULL STARTING A GENERATOR AND IT RECOILED, PAIN DISTAL LT FOREARM ANTERIOR ASPECT TECHNIQUE: Routine MRI of the left lower arm without contrast COMPARISON: Radiographs 11/02/2024 and 04/29/2023 RESULT: Subacute nondisplaced distal radius fracture with intra-articular extension to the radiocarpal articular surface. Associated marrow edema like signal extends into the distal radial diaphysis. Marrow signal otherwise normal. Large zbybs-wk-icnw images of the wrist and elbow joints are within normal limits. No dislocation. Mild reactive intramuscular edema extending into the pronator quadratus. Mild reactive surrounding subcutaneous edema more pronounced and extending over the dorsal wrist. Imaged tendons are intact. Neurovascular structures unremarkable. No other subcutaneous soft tissue abnormality. Localizer images: No significant additional findings. IMPRESSION: Healing nondisplaced intra-articular distal radius fracture. Gas Torch Brazier: YESIS Transcribe Date/Time: Nov 21 2024 9:31A Dictated by : JAXON CRAFT MD This examination was interpreted and the report reviewed and electronically signed by: EDWARDO RENAE MD on Nov 21 2024 3:33PM EST [id number] [facility] CNOVon 11-11-2024 CNOV Office Visit (FAMPWS ) CORINNE GARCIA ([id number]) 1965 M Date Time Provider Department 11/11/24 2:20 PM [facility] During your visit today, we recorded the following information about you: Pulse Respiration Blood pressure Weight 92/minute 16/minute 140/90 124.5 kg Luis Enrique Landa MD 11/11/2024 6:27 PM Signed Chief Complaint Patient presents with: Hand Pain: Left hand HPI Corinne Garcia is a 59 year old male who presents here today for an hand injury and pain Pt injured left hand/arm on Monday11/02/24 when he was pull starting a generator, heard a pop when the cord recoiled. [place] a tearing sensation up his entire medial arm. Was evaluated at [facility] ER, had xray done; no bony injury noted. The swelling is down some, but the pain worsened 11/07/24. Had bruising to the inner arm that has improved, pain with flexing, unable to fully flex fingers. Rated pain 7/10, constant. He states he has pain in the forearm that is dull, ache but with making a fist he has an intense radiating pain up the inner arm. Some pain in the bicep as well but most of the pain is in the lower arm and hand. Has some tingling in the fingers. Trouble sleeping due to the pain. He has appt next week 11/20/24 with [facility] but pt feels that he can not wait that long. Has missed last 2 days of work due to the pain. He has used a splint, elevating the arm when he can, ice, tylenol and ibuprofen throughout the day which isn't helping much. Feels better when he has his arm hanging down but then feels the swelling starting up again. He was not given anything to take at home for pain from ER. Below copied from [facility] 11/02/24: Patient presents with left wrist injury and pain. He states this morning he was pulling on a cord on a generator with both hands and it recoiled back and pulled on his left wrist and he heard a pop. He states he has had left wrist pain and swelling since. He denies any fall on outstretched hand. No numbness or weakness. No pain in the left hand. No pain left elbow. No wound. He is right-hand dominant. I consulted with radiologist Dr. Gay and discussed x-ray images. No definite fracture on x-ray. On reevaluation: Patient resting in bed, no distress. Updated on results. Discussed possible etiologies of symptoms including possible ligamentous, tendon, other underlying soft tissue injury. No definite fracture on x-ray imaging. Discussed if symptoms persist, additional evaluation and imaging will be needed. Discussed wrist splint, RICE therapy, and orthopedic follow-up. He is agreeable with plan. At this time, patient feels comfortable going home. Instructed on signs and symptoms to watch for and reasons to return to the emergency department, otherwise follow-up with orthopedics and primary. * * * * * * * * ADDENDUM #1 * * * * * * * * A discussion was had with the emergency room physician regarding the small irregularity along the dorsal aspect of the distal radius. This is most likely a chronic finding. No definitive linear defect is seen which extends through the distal radius. If there would be high clinical suspicion for occult fracture, CT or repeat/follow-up radiographs could be considered. Past medical history, appointments, medications, allergies reviewed. Previous Medical History PAST MEDICAL HISTORY Diagnosis Date BPH with obstruction/lower urinary tract symptoms Chest pain at rest Dysphagia Eosinophilic esophagitis Obesity Previous Surgical History PAST SURGICAL HISTORY Procedure Laterality Date COLONOSCOPY FLX DX W/COLLJ SPEC WHEN PFRMD 03/04/2015 Colonoscopy ESOPHAGOGASTRODUODENOSCOPY TRANSORAL DIAGNOSTIC 03/04/2015 EGD ESOPHAGOGASTRODUODENOSCOPY TRANSORAL DIAGNOSTIC 04/02/2018 EGD EXC CSTIC HYGROMA AX/CRV W/O DP NEUROVASC DSJ 1979' back of neck, in office. PAST SURGICAL HISTORY OF left knee repair, meni TONSILLECTOMY AND ADENOIDECTOMY Family History FAMILY HISTORY Problem Relation Age of Onset Heart Father [place] in 40s; smoker Hypertension Father Diabetes Father Hypertension Mother Diabetes Mother Heart Paternal Grandfather Patient Allergies ALLERGIES Allergen Reactions Penicillins Hives Current Medications Current Outpatient Medications on File Prior to Visit Medication Sig metoprolol succinate ER (TOPROL XL) 25 mg 24 hr tablet Take 1 tablet by mouth once daily. acetaminophen (TYLENOL EXTRA STRENGTH) 500 mg tablet Take 500 mg by mouth every 8 hours as needed for pain. naproxen (NAPROSYN) 250 mg tablet Take 250 mg by mouth as needed. No current facility-administered medications on file prior to visit. Social History Social History Tobacco Use Smoking status: Never Smokeless tobacco: Never Vaping Use Vaping status: Never Used Substance Use Topics Alcohol use: Yes Comment: occasio (more content not included)... [facility] HEALTHon 11-02-2024 ALLIED HEALTH HNO ID: [id number] Author: AVEL VIZCARRA RT(Mariia) Service: Radiology Author Type: Technologist Type: Allied Health Filed: 11/02/2024 09:51 Note Text: Radiology Service Progress Note PATIENT NAME: Corinne Garcia DATE OF SERVICE: November 02, 2024 TIME: 9:51 AM PATIENT IDENTITY VERIFICATION COMPLETED USING TWO (2) IDENTIFIERS: Name and Date of confirmed by patient verbally. FALL SCREENING: Has the patient had 2 falls in the last year or 1 fall with injury or currently using an Ambulatory Assistive Device (Walker, Cane, Wheelchair, Crutches, etc.)? Emergency Room Patient: Screened in ED PATIENT GENDER DATA: Male PATIENT RELEVANT IMPLANT DATA REVIEWED: Not Applicable PATIENT PRESENTS WITH AN IMPLANTABLE OR ATTACHED LEAD GENERATION MARKETING MANAGER: No RADIOLOGY DEPARTMENT: General X-ray: Exam(s) Completed: Upper Extremity X-Ray(s): Wrist, left PERIPHERAL IV DATA: Not applicable SIGNED BY: RT Danielito(R) November 02, 2024 9:51 AM [facility] ED NOTEon 11-02-2024 ED NOTE HNO ID: [id number] Author: CHAYITO CAMPO RN Service: Emergency Medicine Author Type: Registered Nurse Type: ED Notes Filed: 11/02/2024 10:23 Note Text: Patient is alert and oriented, denies any questions/concerns at this time. Patient verbalizes understanding of d/c instructions and follow up care. Patient ambulates from department at this time. [facility] ED NOTE HNO ID: [id number] Author: CHAYITO CAMPO RN Service: Emergency Medicine Author Type: Registered Nurse Type: ED Notes Filed: 11/02/2024 09:26 Note Text: Pt reports he was trying to start the generator and it recoiled causing a pop in his wrist c/o L wrist. Pt denies any fall or other injury, pt is alert and oriented ambulates to room 9. [facility] ED PROV NOTEon 11-02-2024 ED PROV NOTE HNO ID: [id number] Author: PITO PHILLIPS DO Service: Emergency Medicine Author Type: Physician Type: ED Provider Notes Filed: 11/02/2024 12:44 Note Text: ED Provider Note Patient Name: Corinne Garcia : 1965 SERVICE DATE: 11/02/24 History Patient presents with: Wrist Pain Corinne Garcia is a 59 year old male who presents with Wrist Pain. - Symptoms began this morning. - Severity: moderate - Timing: constant - Quality: sore - Symptoms are associated with left wrist swelling and injury. - Symptoms are not associated with numbness, weakness, left hand pain, left elbow pain, wound. Patient presents with left wrist injury and pain. He states this morning he was pulling on a cord on a generator with both hands and it recoiled back and pulled on his left wrist and he heard a pop. He states he has had left wrist pain and swelling since. He denies any fall on outstretched hand. No numbness or weakness. No pain in the left hand. No pain left elbow. No wound. He is right-hand dominant. PAST MEDICAL HISTORY Diagnosis Date BPH with obstruction/lower urinary tract symptoms Chest pain at rest Dysphagia Eosinophilic esophagitis Obesity PAST SURGICAL HISTORY Procedure Laterality Date COLONOSCOPY FLX DX W/COLLJ SPEC WHEN PFRMD 03/04/2015 Colonoscopy ESOPHAGOGASTRODUODENOSCOPY TRANSORAL DIAGNOSTIC 03/04/2015 EGD ESOPHAGOGASTRODUODENOSCOPY TRANSORAL DIAGNOSTIC 04/02/2018 EGD EXC CSTIC HYGROMA AX/CRV W/O DP NEUROVASC DSJ 1979' back of neck, in office. PAST SURGICAL HISTORY OF left knee repair, meni TONSILLECTOMY AND ADENOIDECTOMY FAMILY HISTORY Problem Relation Age of Onset Heart Father [place] in 40s; smoker Hypertension Father Diabetes Father Hypertension Mother Diabetes Mother Heart Paternal Grandfather Social History Tobacco Use Smoking status: Never Smokeless tobacco: Never Vaping Use Vaping status: Never Used Substance and Sexual Activity Alcohol use: Yes Comment: occasionally Drug use: Not Currently Types: Marijuana Comment: In high school Sexual activity: Yes Partners: Female ALLERGIES Allergen Reactions Penicillins Hives Review of Systems Constitutional: Negative for fever. Musculoskeletal: Positive for arthralgias (Left wrist) and joint swelling (Left wrist). Skin: Negative for wound. Neurological: Negative for weakness and numbness. Psychiatric/Behavioral: Negative for agitation and confusion. Physical Exam Vitals [11/02/24 0928] BP Pulse Temp Temp src Resp SpO2 Weight Height 134/86 78 36.1 ?C (96.9 ?F) Temporal 18 96 % 117.5 kg (259 lb) -- Physical Exam Vitals and nursing note reviewed. Constitutional: Appearance: He is not toxic-appearing or diaphoretic. HENT: Head: Normocephalic and atraumatic. Eyes: Conjunctiva/sclera: Conjunctivae normal. Cardiovascular: Rate and Rhythm: Normal rate and regular rhythm. Pulses: Normal pulses. Pulmonary: Effort: Pulmonary effort is normal. Breath sounds: Normal breath sounds. Musculoskeletal: Left elbow: No swelling, deformity, effusion or lacerations. Normal range of motion. No tenderness. Left forearm: No swelling, edema, deformity, lacerations, tenderness or bony tenderness. Left wrist: Swelling and tenderness present. No deformity, lacerations, snuff box tenderness or crepitus. Normal range of motion. Normal pulse. Left hand: No swelling, deformity, lacerations, tenderness or bony tenderness. Normal range of motion. Normal strength. Normal sensation. Normal capillary refill. Normal pulse. Comments: Left wrist: There is tenderness and swelling localized to the dorsum of the lateral/radial aspect of the wrist. Skin intact. Skin: General: Skin is warm and dry. Capillary Refill: Capillary refill takes less than 2 seconds. Neurological: Mental Status: He is alert and oriented to person, place, and time. GCS: GCS eye subscore is 4. GCS verbal subscore is 5. GCS motor subscore is 6. Psychiatric: Mood and Affect: Mood normal. Behavior: Behavior normal. Diagnostic Testing ED Labs Ordered and Reviewed - No data to display Procedures ED Course / Clinical Impression Clinical Impressions as of 11/02/24 1011 Left wrist injury, initial encounter MDM / Disposition / Plan Will obtain x-ray imaging of left wrist. XR WRIST INJURY 4V PA/LAT/OBL/SCAPH LEFT Final Result IMPRESSION: No acute osseous injury is seen. Gas Torch Brazier: PSCB Transcribe Date/Time: Nov 02 2024 9:53A Dictated by : KASANDRA GAY MD This examination was interpreted and the report reviewed and electronically signed by: KASANDRA GAY MD on Nov 02 2024 9:56AM EST I consulted with radiologist Dr. Gay and discussed x-ray images. No definite fracture on x-ray. On reevaluation: Patient resting in bed, no distress. Updated on results. Discussed possible etiologies of symptoms including possible ligamentous, tendo (more content not included)... [facility] XR WRIST 4V PA/LAT/OBL/SCAPH LTon 11-02-2024 XR WRIST 4V PA/LAT/OBL/SCAPH LT * * *Final Report* * * * * * SEE BOTTOM OF REPORT FOR ADDENDED TEXT * * * DATE OF EXAM: Nov 02 2024 9:50AM LDX [id number] - XR WRIST 4V PA/LAT/OBL/SCAPH LT / PROCEDURE REASON: Trauma * * * * Physician Interpretation * * * * * * * * * * * * ORIGINAL REPORT * * * * * * * * EXAMINATION: XR WRIST 4V PA/LAT/OBL/SCAPH LT HISTORY: Trauma; Pt reports he was trying to start the generator and it recoiled causing a pop in his wrist c/o L wrist. Pt denies any fall or other injury, pt is alert and oriented ambulates to room 9. Trauma. TECHNIQUE: XR WRIST 4V PA/LAT/OBL/SCAPH LT Laterality: LEFT Number of different views (projections): 4 M: XB_1 COMPARISON: Radiograph April 2023 RESULT: No fracture or subluxation is seen. Carpal arcs are maintained. No other significant abnormality. IMPRESSION: No acute osseous injury is seen. * * * * * * * * ADDENDUM #1 * * * * * * * * A discussion was had with the emergency room physician regarding the small irregularity along the dorsal aspect of the distal radius. This is most likely a chronic finding. No definitive linear defect is seen which extends through the distal radius. If there would be high clinical suspicion for occult fracture, CT or repeat/follow-up radiographs could be considered. Gas Torch Brazier: YESSI Transcribe Date/Time: Nov 02 2024 10:16A Dictated by : KASANDRA GAY MD This examination was interpreted and the report reviewed and electronically signed by: KASANDRA GAY MD on Nov 02 2024 9:56AM EST This document has been addended by: KASANDRA GAY MD on Nov 02 2024 10:19AM EST [id number] [facility] XR FOREARM GENERAL 2V AP/LAT LEFTon 04-29-2023 [facility] XR Radius and Ulna - left AP and Lateralon 04-29-2023 IMPRESSION: No acute osseous abnormality Gas Torch Brazier: [facility] Transcribe Date/Time: Apr 29 2023 9:16A Dictated by : ROSENDO SAHU MD This examination was interpreted and the report reviewed and electronically signed by: ROSENDO SAHU MD on Apr 29 2023 9:17AM EST DIVISION OF RADIOLOGY * * *Final Report* * * DATE OF EXAM: Apr 29 2023 9:08AM WOX [id number] - XR FOREARM 2V AP/LAT LT / PROCEDURE REASON: Pain * * * * Physician Interpretation * * * * PROCEDURE: Left forearm INDICATION: Pain .fell and hit his left forearm, pain and swelling mid lateral side TECHNIQUE: XR FOREARM 2V AP/LAT LT COMPARISON: None FINDINGS: No acute fracture or dislocation. Soft tissue swelling over the dorsum of the mid forearm. No soft tissue gas or foreign body. DIVISION OF RADIOLOGY Provider, [facility] Manny Perkins - 04/29/2023 * * *Final Report* * * DATE OF EXAM: Apr 29 2023 9:08AM WOX [id number] - XR FOREARM 2V AP/LAT LT / PROCEDURE REASON: Pain * * * * Physician Interpretation * * * * PROCEDURE: Left forearm INDICATION: Pain .fell and hit his left forearm, pain and swelling mid lateral side TECHNIQUE: XR FOREARM 2V AP/LAT LT COMPARISON: None FINDINGS: No acute fracture or dislocation. Soft tissue swelling over the dorsum of the mid forearm. No soft tissue gas or foreign body. IMPRESSION IMPRESSION: No acute osseous abnormality [employer] Brazier: YESSI Transcribe Date/Time: Apr 29 2023 9:16A Dictated by : ROSENDO SAHU MD This examination was interpreted and the report reviewed and electronically signed by: ROSENDO SAHU MD on Apr 29 2023 9:17AM EST [facility] Radiology Study observation (narrative) [facility] XR Radius and Ulna - left AP and LateralOrdered By: [facility] Provider on 04-29-2023 [facility] UA DIP, URINE (POC)on 2022 BILIRUBIN UA (POCT) Negative Negative [facility] CLARITY UA (POCT) Clear [facility] COLOR UA (POCT) Yellow [facility] GLUCOSE UA (POCT) Negative Negative mg/dL [facility] HEMOGLOBIN/BLOOD UA (POCT) Negative Negative [facility] KETONE UA (POCT) Negative Negative mg/dL [facility] LEUKOCYTES UA (POCT) Negative Negative [facility] NITRITE UA (POCT) Negative Negative [facility] PH UA (POCT) 6.0 4.5 - 8.0 [facility] Protein Ql (U) Negative Negative mg/dL [facility] SPECIFIC GRAVITY UA (POCT) 1.025 1.005 - 1.030 [facility] UROBILINOGEN UA (POCT) 0.2 E.U./dL Normal E.U./dL [facility] Vital Signs Date Time Vital Sign Value Performing Clinician Leo riley 05-13-2025 15:28-0400 Body height 177.8 cm Naomi Centeno PA-C Work Phone: [facility] 05-13-2025 15:28-0400 Body mass index (BMI) [Ratio] 40.46 kg/m2 Naomi Centeno PA-C Work Phone: [facility] 05-13-2025 15:28-0400 Body temperature 97.59 [degF] Naomi Centeno PA-C Work Phone: [facility] 05-13-2025 15:28-0400 Body weight 127.91 kg Naomi Centeno PA-C Work Phone: [facility] 05-13-2025 15:28-0400 Diastolic blood pressure 76 mm[Hg] Naomi Centeno PA-C Work Phone: [facility] 05-13-2025 15:28-0400 Heart rate 98 /min Naomi Centeno PA-C Work Phone: [facility] 05-13-2025 15:28-0400 SaO2% (BldA) [Mass fraction] 98 % Naomi Centeno PA-C Work Phone: [facility] 05-13-2025 15:28-0400 Systolic blood pressure 124 mm[Hg] Naomi Centeno PA-C Work Phone: [facility] 03-21-2025 10:00-0400 Diastolic blood pressure 86 mm[Hg] Jessy Hazel Jr., MD Work Phone: [facility] 03-21-2025 10:00-0400 Heart rate 81 /min Jessy Hazel Jr., MD Work Phone: [facility] 03-21-2025 10:00-0400 Respiratory rate 18 /min Jessy Hazel Jr., MD Work Phone: [facility] 03-21-2025 10:00-0400 SaO2% (BldA) [Mass fraction] 92 % Jessy Hazel Jr., MD Work Phone: [facility] 03-21-2025 10:00-0400 Systolic blood pressure 144 mm[Hg] Jessy Hazel Jr., MD Work Phone: [facility] 03-21-2025 08:47-0400 Body height 177.8 cm Jessy Hazel Jr., MD Work Phone: [facility] 03-21-2025 08:47-0400 Body mass index (BMI) [Ratio] 38.74 kg/m2 Jessy Hazel Jr., MD Work Phone: [facility] 03-21-2025 08:47-0400 Body temperature 97.2 [degF] Jessy Hazel Jr., MD Work Phone: [facility] 03-21-2025 08:47-0400 Body weight 122.47 kg Jessy Hazel Jr., MD Work Phone: [facility] 11-11-2024 13:57-0500 Body mass index (BMI) [Ratio] 39.38 kg/m2 Luis Enrique Landa MD Work Phone: [facility] 11-11-2024 13:57-0500 Body weight 124.5 kg Luis Enrique Landa MD Work Phone: [facility] 11-11-2024 13:57-0500 Diastolic blood pressure 90 mm[Hg] Luis Enrique Landa MD Work Phone: [facility] 11-11-2024 13:57-0500 Heart rate 92 /min Luis Enrique Landa MD Work Phone: [facility] 11-11-2024 13:57-0500 Respiratory rate 16 /min Luis Enrique Landa MD Work Phone: [facility] 11-11-2024 13:57-0500 Systolic blood pressure 140 mm[Hg] Luis Enrique Landa MD Work Phone: [facility] 05-13-2024 15:48-0400 Body height 177.8 cm Basia Clement APRN.CNP Work Phone: [facility] 05-13-2024 15:48-0400 Body mass index (BMI) [Ratio] 40.58 kg/m2 Basia Howard SALES MERCHANDISE ASSOCIATE.SENIOR PRODUCT DEVELOPMENT SCIENTIST Work Phone: [facility] 05-13-2024 15:48-0400 Body temperature 97.5 [degF] Basia Howard SALES MERCHANDISE ASSOCIATE.SENIOR PRODUCT DEVELOPMENT SCIENTIST Work Phone: [facility] 05-13-2024 15:48-0400 Body weight 128.28 kg Basia Howard SALES MERCHANDISE ASSOCIATE.SENIOR PRODUCT DEVELOPMENT SCIENTIST Work Phone: [facility] 05-13-2024 15:48-0400 Diastolic blood pressure 70 mm[Hg] Basia Howard SALES MERCHANDISE ASSOCIATE.SENIOR PRODUCT DEVELOPMENT SCIENTIST Work Phone: [facility] 05-13-2024 15:48-0400 Heart rate 89 /min Basia Howard SALES MERCHANDISE ASSOCIATE.SENIOR PRODUCT DEVELOPMENT SCIENTIST Work Phone: [facility] 05-13-2024 15:48-0400 SaO2% (BldA) [Mass fraction] 98 % Basia Howard SALES MERCHANDISE ASSOCIATE.SENIOR PRODUCT DEVELOPMENT SCIENTIST Work Phone: [facility] 05-13-2024 15:48-0400 Systolic blood pressure 118 mm[Hg] Basia Howard SALES MERCHANDISE ASSOCIATE.SENIOR PRODUCT DEVELOPMENT SCIENTIST Work Phone: [facility] 04-22-2024 14:21-0400 Body height 177.8 cm Luis Enrique Landa MD Work Phone: [facility] 04-22-2024 14:21-0400 Body mass index (BMI) [Ratio] 40.84 kg/m2 Luis Enrique Landa MD Work Phone: [facility] 04-22-2024 14:21-0400 Body weight 129.09 kg Luis Enrique Landa MD Work Phone: [facility] 04-22-2024 14:21-0400 Diastolic blood pressure 80 mm[Hg] Luis Enrique Landa MD Work Phone: [facility] 04-22-2024 14:21-0400 Heart rate 78 /min Luis Enrique Landa MD Work Phone: [facility] 04-22-2024 14:21-0400 Respiratory rate 16 /min Luis Enrique Landa MD Work Phone: [facility] 04-22-2024 14:21-0400 Systolic blood pressure 130 mm[Hg] Luis Enrique Landa MD Work Phone: [facility] 04-16-2024 15:36-0400 Body mass index (BMI) [Ratio] 40.61 kg/m2 Naomi Centeno PA-C Work Phone: [facility] 04-16-2024 15:36-0400 Body weight 128.37 kg Naomi Centeno PA-C Work Phone: [facility] 04-16-2024 15:36-0400 Diastolic blood pressure 78 mm[Hg] Naomi Centeno PA-C Work Phone: [facility] 04-16-2024 15:36-0400 Heart rate 94 /min Naomi Centeno PA-C Work Phone: [facility] 04-16-2024 15:36-0400 SaO2% (BldA) [Mass fraction] 95 % Naomi Centeno PA-C Work Phone: [facility] 04-16-2024 15:36-0400 Systolic blood pressure 104 mm[Hg] Naomi Centeno PA-C Work Phone: [facility] 04-29-2023 08:53-0400 Body temperature 96.91 [degF] Betty Banda APRN.SENIOR PRODUCT DEVELOPMENT SCIENTIST Work Phone: [facility] 04-29-2023 08:53-0400 Body weight 128.37 kg Betty Banda APRN.SENIOR PRODUCT DEVELOPMENT SCIENTIST Work Phone: [facility] 04-29-2023 08:53-0400 Diastolic blood pressure 78 mm[Hg] Betty Banda APRN.SENIOR PRODUCT DEVELOPMENT SCIENTIST Work Phone: [facility] 04-29-2023 08:53-0400 Heart rate 84 /min Betty Banda APRN.SENIOR PRODUCT DEVELOPMENT SCIENTIST Work Phone: [facility] 04-29-2023 08:53-0400 Respiratory rate 16 /min Betty Banda APRN.SENIOR PRODUCT DEVELOPMENT SCIENTIST Work Phone: [facility] 04-29-2023 08:53-0400 SaO2% (BldA) [Mass fraction] 97 % Betty Banda APRN.SENIOR PRODUCT DEVELOPMENT SCIENTIST Work Phone: [facility] 04-29-2023 08:53-0400 Systolic blood pressure 134 mm[Hg] Betty Banda APRN.SENIOR PRODUCT DEVELOPMENT SCIENTIST Work Phone: [facility] 11-29-2022 16:01-0500 Body height 177.8 cm Naomi Centeno PA-C Work Phone: [facility] 11-29-2022 16:01-0500 Body temperature 97.2 [degF] Naomi Centeno PA-C Work Phone: [facility] 11-29-2022 16:01-0500 Body weight 128.82 kg Naomi Centeno PA-C Work Phone: [facility] 11-29-2022 16:01-0500 Diastolic blood pressure 90 mm[Hg] Naomi Centeno PA-C Work Phone: [facility] 11-29-2022 16:01-0500 Heart rate 88 /min Naomi Centeno PA-C Work Phone: [facility] 11-29-2022 16:01-0500 Respiratory rate 14 /min Naomi Centeno PA-C Work Phone: [facility] 11-29-2022 16:01-0500 SaO2% (BldA) [Mass fraction] 96 % Naomi Centeno PA-C Work Phone: [facility] 11-29-2022 16:01-0500 Systolic blood pressure 138 mm[Hg] Naomi Centeno PA-C Work Phone: [facility] 11-18-2022 14:57-0500 Body height 180.3 cm Luis Enrique Landa MD Work Phone: [facility] 11-18-2022 14:57-0500 Body weight 128.1 kg Luis Enrique Landa MD Work Phone: [facility] 11-18-2022 14:57-0500 Diastolic blood pressure 82 mm[Hg] Luis Enrique Landa MD Work Phone: [facility] 11-18-2022 14:57-0500 Heart rate 76 /min Luis Enrique Landa MD Work Phone: [facility] 11-18-2022 14:57-0500 Respiratory rate 16 /min Luis Enrique Landa MD Work Phone: [facility] 11-18-2022 14:57-0500 Systolic blood pressure 126 mm[Hg] Luis Enrique Landa MD Work Phone: [facility] Encounters Encounter Date Encounter Type Care Provider Facility Start: 05-22-2025 ambulatory Luis Enrique Chappell y:[facility] Start: 05-17-2025 End: 05-17-2025 Emergency department patient visit LENI BRITTON Facility:[facility] Start: 05-17-2025 End: 05-17-2025 Emergency department patient visit LUIS ENRIQUE LANDA Facility:[facility] Start: 05-15-2025 Encounter for other preprocedural examination Curt Dover [facility] Start: 05-13-2025 End: 05-13-2025 Patient encounter procedure Naomi Centeno PA-C Work Phone: Urology Comment on above: Benign prostatic hyp erplasia without lower urinary tract symptoms (Primary Dx); Screening for genitourinary condition; Impotence of organic origin Start: 05-13-2025 End: 05-13-2025 ambulatory NAOMI CENTENO Facility:[facility] Start: 05-06-[address] LUIS ENRIQUE Morejon acility:[facility] Start: 04-09-2025 End: 04-09-2025 ambulatory NAOMI CENTENO Facility:[facility] Start: 03-21-2025 ambulatory JESSY HAZEL JR Faci lity:[facility] Start: 03-21-2025 End: 03-21-2025 Subsequent hospital visit by physician Jessy Hazel MD Work Phone: [facility] Comment on above: Eosinophilic esophag itis [K20.0] Start: 12-02-2024 End: 12-02-2024 Telephone encounter Cuate Wright DO Work Phone: General Surgery Start: 11-22-2024 End: 11-22-2024 Telephone encounter Luis Enrique Landa MD Work Phone: [facility] Comment on above: Results Start: 11-21-2024 End: 11-21-2024 ambulatory LUIS ENRIQUE JOHNSONBUFFALO Facility:[facility] Start: 11-21-2024 End: 11-21-2024 Subsequent hospital visit by physician Mri Radio [facility] (I-Stat/1.5t) Work Phone: Radiology Comment on above: Left arm pain [M79.6 02] Start: 11-11-2024 End: 11-11-2024 ambulatory LUIS ENRIQUE JOHNSONBUFFALO Facility:[facility] Start: 11-11-2024 End: 11-11-2024 Patient encounter procedure Luis Enrique Landa MD Work Phone: [facility] Comment on above: Left arm pain (Prima ry Dx) Start: 11-02-2024 End: 11-02-2024 Emergency department patient visit LUIS ENRIQUE LANDA Facility:[facility] Start: 10-03-2024 End: 10-03-2024 Admission to same day surgery center [facility] Provider General Surgery Comment on above: Alexander Lehman Prep Instructions Start: 10-03-2024 End: 10-03-2024 E-mail encounter from caregiver [facility] Provider General Surgery Start: 08-05-2024 ambulatory [facility] Facility:[facility] Start: 05-14-2024 End: 10-03-2024 Admission to same day surgery center [facility] Provider General Surgery Comment on above: PROCEDURE INFORMATIO N Start: 05-14-2024 End: 10-03-2024 E-mail encounter from caregiver [facility] Provider General Surgery Start: 05-13-2024 End: 05-13-2024 Patient encounter procedure Basia Clement APRN.SENIOR PRODUCT DEVELOPMENT SCIENTIST Work Phone: General Surgery Comment on above: History of colonic p olyps (Primary Dx); Eosinophilic esophagitis; Dysphagia, unspecified type; Screening for colon cancer Start: 04-22-2024 End: 04-22-2024 Patient encounter procedure Luis Enrique Landa MD Work Phone: [facility] Comment on above: Primary hypertension (Primary Dx); Mixed hyperlipidemia; Screening for colon cancer; Eosinophilic esophagitis; Class 3 severe obesity due to excess calories without serious comorbidity with body mass index (BMI) of 40.0 to 44.9 in adult (HCC) Start: 04-16-2024 End: 04-16-2024 Patient encounter procedure Naomi Centeno PA-C Work Phone: Urology Comment on above: Benign prostatic hyp erplasia without lower urinary tract symptoms (Primary Dx); Impotence of organic origin Start: 03-26-2024 ambulatory Luis Enrique fisher MD Work Phone: [facility] Comment on above: Bloodwork ? Bloodwork? Start: 03-26-2024 Patient encounter status Luis Enrique Landa MD Work Phone: [facility] Start: 04-29-2023 End: 04-29-2023 Patient encounter procedure Betty Banda APRN.CNP Work Phone: [facility] Comment on above: Pain (Primary Dx) Start: 04-29-2023 End: 04-29-2023 Subsequent hospital visit by physician Heather [facility] Work Phone: Radiology Comment on above: Pain [R52] Start: 11-29-2022 End: 11-30-2022 Patient encounter procedure Naomi Centeno PA-C Work Phone: Urology Comment on above: Benign prostatic hyp erplasia, unspecified whether lower urinary tract symptoms present (Primary Dx) Start: 11-18-2022 End: 11-18-2022 Patient encounter procedure Luis Enrique Landa MD Work Phone: [facility] Comment on above: Wellness examination (Primary Dx); Mixed hyperlipidemia; Elevated glucose; Essential tremor; BPH with obstruction/lower urinary tract symptoms; Weak urinary stream Start: 11-18-2022 End: 11-18-2022 Patient encounter status Luis Enrique Landa MD Work Phone: [facility] [place] Procedures Date Procedure Procedure Detail Performing Clinician Start: 05-13-2025 Urnls dip stick/tablet rgnt auto w/o microscopy Naomi eCnteno PA-C Work Phone: Start: 03-21-2025 Colonoscopy flx dx w/collj spec when pfrmd Basia Clement SALES MERCHANDISE ASSOCIATE.SENIOR PRODUCT DEVELOPMENT SCIENTIST Work Phone: Start: 03-21-2025 Esophagogastroduodenoscopy transoral diagnostic Basia Clement SALES MERCHANDISE ASSOCIATE.SENIOR PRODUCT DEVELOPMENT SCIENTIST Work Phone: Start: 03-21-2025 Colonoscopy Jessy Hazel Jr., MD Work Phone: Start: 11-21-2024 Mri upper extremity oth than jt w/o contr matrl Luis Enrique Landa MD Work Phone: Start: 04-22-2024 Adult depression screening assessment [facility] [place] Work Phone: Start: 04-10-2024 Lipid 1996 panel - Serum or Plasma Brand matt Centeno PA-C Work Phone: Start: 04-29-2023 Radex forearm 2 views Betty Banda SALES MERCHANDISE ASSOCIATE.SENIOR PRODUCT DEVELOPMENT SCIENTIST Work Phone: Start: 11-29-2022 Urnls dip stick/tablet rgnt auto w/o microscopy Naomi Centeno PA-C Work Phone: Start: 10-20-2022 Lipid 1996 panel - Serum or Plasma Luis Enrique Landa MD Work Phone: Start: 04-02-2018 Colonoscopy Luis Enrique Landa MD Work Phone: Plan of Treatment Date Care Activity Detail Author Start: 2038 RSV Vaccine (1 - 1-d ose 75+ series) RSV Vaccine (1 - 1-dose 75+ series) [facility] Start: 04-09-2030 Prostate specific antigen measurement Prostate Cancer Screening Discussion [facility] Start: 03-21-2030 Screening for malign ant neoplasm of colon [facility] Start: 04-10-2029 Lipid panel Lipid Screening [facility] Start: 04-10-2029 Prostate specific antigen measurement Prostate Cancer Screening Discussion [facility] Start: 10-20-2027 Lipid panel Lipid Screening [facility] Start: 10-20-2027 LIPID SCREEN LIPID SCREEN [facility] Start: 10-20-2027 PROSTATE CANCER SCREENING DISCUSSION PROSTATE CANCER SCREENING DISCUSSION [facility] Start: 10-20-2027 Prostate specific antigen measurement Prostate Cancer Screening Discussion [facility] Start: 04-10-2027 Diabetes Screening Diabetes Screenin g [facility] Start: 05-19-2026 End: 05-19-2026 Patient encounter procedure 05/19/2026 4:00 PM EDT Office Visit Urology [address] [place], [place] [id number] Naomi Centeno PA-C [address] [place] [address] 1 YR F/U Urology Comment on above: 1 YR F/U Start: 05-13-2026 End: 08-12-2026 Prostate specific Ag [Mass/volume] in Serum or Plasma PROSTATE-SPECIFIC ANTIGEN DIAGNOSTIC Lab Routine Benign prostatic hyperplasia without lower urinary tract symptoms Expected: 05/13/2026 (Approximate), Expires: 08/12/2026 [facility] Comment on above: Expected: 05/13/2026 (Approximate), Expires: 08/12/2026 Start: 10-20-2025 DIABETES SCREEN DIABETES SCREEN [facility] Start: 10-20-2025 Diabetes Screening Diabetes Screenin g [facility] Start: 07-14-2025 Influenza vaccination [facility] Start: 04-22-2025 End: 04-22-2025 Patient encounter procedure 04/22/2025 3:30 PM EDT Office Visit Urology [address] [place], [place] [id number] Naomi Centeno PA-C [address] [place] [address] One year Urology Comment on above: One year Start: 04-22-2025 Anxiety Screening Anxiety Screening [facility] Start: 04-22-2025 Covid-19 Vaccine () Covid-19 Vaccine () [facility] Comment on above: Postponed from 07/14 (Declined at this time) Start: 04-22-2025 Depression Screening Depression Scre soumya [facility] Start: 04-16-2025 End: 07-16-2025 Prostate specific Ag [Mass/volume] in Serum or Plasma PROSTATE-SPECIFIC ANTIGEN DIAGNOSTIC Lab Routine Benign prostatic hyperplasia without lower urinary tract symptoms Expected: 04/16/2025 (Approximate), Expires: 07/16/2025 [facility] Work Phone: Comment on above: Expected: 04/16/2025 (Approximate), Expires: 07/16/2025 Start: 12-17-2024 Urine microalbumin profile [facility] Start: 12-06-2024 End: 12-06-2024 Patient encounter procedure 12/06/2024 8:15 AM EST Appointment [facility] [address] [place] [address] Cuate Wright, [address] [place] [address] colon/egd [facility] Comment on above: colon/egd Start: 11-21-2024 End: 11-21-2024 Patient encounter procedure 11/21/2024 7:30 AM EST Appointment Radiology [address] [place] [address] Left arm pain [M79.602] Radiology Comment on above: Left arm pain [M79.6 02] Start: 10-18-2024 End: 10-18-2024 Patient encounter procedure 10/18/2024 12:45 PM EST Appointment [facility] [address] [place] [address] Karan Forman MD [address] [place] [address] colon/egd [facility] Comment on above: colon/egd Start: 07-14-2024 Covid-19 Vaccine () Covid-19 Vaccine () [facility] Start: 07-14-2024 Covid-19 Vaccine ( season) Covid-19 Vaccine ( season) [facility] Start: 07-14-2024 Influenza vaccination [facility] Start: 05-13-2024 End: 05-13-2024 Patient encounter procedure 05/13/2024 3:45 PM EDT Office Visit General Surgery [address] [place], [place] [address] Karan Forman MD [address] [place] [address] Screening for colon cancer [Z12.11] General Surgery Comment on above: Screening for colon cancer [Z12.11] Start: 04-22-2024 End: 04-22-2024 Patient encounter procedure 04/22/2024 2:40 PM EDT Office Visit [facility] [place] [address], [place] [id number] Luis Enrique Landa MD [address] [place] [address] yearly check up-med review-weight increase Family [facility] Comment on above: yearly check up-med review-weight increase Start: 04-16-2024 End: 04-16-2024 Patient encounter procedure 04/16/2024 3:30 PM EDT Office Visit Urology [address], [place] [id number] Naomi Centeno PA-C [address] [place] [address] Overdue on yearly follow up- Request lab for PSA (mychart request) Urology Comment on above: Overdue on yearly fo llow up- Request lab for PSA (mychart request) Start: 04-16-2024 End: 07-16-2024 CBC W Auto Differential panel - Blood COMPLETE BLOOD COUNT AND DIFFERENTIAL Lab Routine Wellness examination Expected: 04/16/2024 (Approximate), Expires: 07/16/2024 [facility] Comment on above: Expected: 04/16/2024 (Approximate), Expires: 07/16/2024 Start: 04-16-2024 End: 07-16-2024 Comprehensive metabolic 2000 panel - Serum or Plasma COMPREHENSIVE METABOLIC PANEL Lab Routine Wellness examination Mixed hyperlipidemia Elevated glucose Expected: 04/16/2024 (Approximate), Expires: 07/16/2024 [facility] Work Phone: Comment on above: Expected: 04/16/2024 (Approximate), Expires: 07/16/2024 Start: 04-16-2024 End: 07-16-2024 Hemoglobin A1c in Blood HEMOGLOBIN A1C Lab Routine Wellness examination Elevated glucose Expected: 04/16/2024 (Approximate), Expires: 07/16/2024 [facility] Comment on above: Expected: 04/16/2024 (Approximate), Expires: 07/16/2024 Start: 04-16-2024 End: 07-16-2024 Lipid 1996 panel - Serum or Plasma LIPID PANEL BASIC Lab Routine Wellness examination Mixed hyperlipidemia Elevated glucose Expected: 04/16/2024 (Approximate), Expires: 07/16/2024 [facility] Comment on above: Expected: 04/16/2024 (Approximate), Expires: 07/16/2024 Start: 04-16-2024 End: 07-16-2024 PSA/PROSTATE SPECIFIC ANTIGEN SCREENING PSA/PROSTATE SPECIFIC ANTIGEN SCREENING Lab Routine BPH with obstruction/lower urinary tract symptoms Screening for prostate cancer Expected: 04/16/2024 (Approximate), Expires: 07/16/2024 [facility] Comment on above: Expected: 04/16/2024 (Approximate), Expires: 07/16/2024 Start: 11-29-2023 End: 01-29-2024 Prostate specific Ag [Mass/volume] in Serum or Plasma PSA/PROSTSPECAG DIAG Lab Routine Benign prostatic hyperplasia, unspecified whether lower urinary tract symptoms present Expected: 11/29/2023 (Approximate), Expires: 01/29/2024 [facility] Work Phone: Comment on above: Expected: 11/29/2023 (Approximate), Expires: 01/29/2024 Start: 11-18-2023 COVID-19 VACCINE (3 - Booster for Pfizer series) COVID-19 VACCINE (3 - Booster for Pfizer series) [facility] Comment on above: Postponed from 04/16 (Declined at this time) Start: 11-13-2023 Behavioral Health Screening Behavioral Health Screening [facility] Start: 07-14-2023 Covid-19 Vaccine ( season) Covid-19 Vaccine ( season) [facility] Start: 07-14-2023 Influenza vaccination INFLUENZA (Sea son Ended) [facility] Start: 05-12-2023 Influenza vaccination INFLUENZA (#1) [facility] Comment on above: Postponed from 07/14 (Declined at this time) Start: 04-02-2023 Colonoscopy COLONOSCOPY [facility] Start: 04-02-2023 COLORECTAL CANCER SCREENING COLORECTAL CANCER SCREENING [facility] Start: 04-02-2023 Screening for malign ant neoplasm of colon [facility] Start: 2023 RSV Vaccine (1 - 1-d ose 60+ series) RSV Vaccine (1 - 1-dose 60+ series) [facility] Start: 2023 RSV Vaccine (1 - Ris k 60-74 years 1-dose series) RSV Vaccine (1 - Risk 60-74 years 1-dose series) [facility] Start: 2013 Pneumococcal Vaccine : 50+ (1 of 1 - PCV) Pneumococcal Vaccine: 50+ (1 of 1 - PCV) [facility] Start: 02-29-2008 COLOGUARD (FIT-DNA) COLOGUARD (FIT-D NA) [facility] Start: 02-29-[address] COLONOGRAPHY [facility] Start: 02-29-2008 FECAL OCCULT BLOOD FECAL OCCULT BLOO D [facility] Start: 02-29-2008 Screening for malign ant neoplasm of colon [facility] Start: 02-29-2008 SIGMOIDOSCOPY SIGMOIDOSCOPY [facility] End: 05-13-2025 EGD DIAGNOSTIC EGD DIAGNOSTIC Endoscopy Routine Eosinophilic esophagitis Dysphagia, unspecified type 1 Occurrences starting 05/13/2024 until 05/13/2025 [facility] Work Phone: Comment on above: 1 Occurrences starti ng 05/13/2024 until 05/13/2025 End: 12-11-2025 MR Forearm - left WO contrast MRI LOWER ARM WO IVCON LEFT Radiology Routine Left arm pain 1 Occurrences starting 11/11/2024 until 12/11/2025 [facility] [facility] Work Phone: Comment on above: 1 Occurrences starti ng 11/11/2024 until 12/11/2025 POST VOID RESIDUAL POST VOID RES IDUAL Procedures Routine Benign prostatic hyperplasia, unspecified whether lower urinary tract symptoms present Ordered: 11/29/2022 [facility] Work Phone: Comment on above: Ordered: 11/29/2022 POST VOID RESIDUAL POST VOID RES IDUAL Procedures Routine Impotence of organic origin Benign prostatic hyperplasia without lower urinary tract symptoms Screening for genitourinary condition Ordered: 05/13/2025 [facility] Work Phone: Comment on above: Ordered: 05/13/2025 End: 05-13-2025 Screening colonoscopy COLONOSCOPY SCREENING Endoscopy Routine Screening for colon cancer 1 Occurrences starting 05/13/2024 until 05/13/2025 [facility] Comment on above: 1 Occurrences starti ng 05/13/2024 until 05/13/2025 Tissue Pathology bio psy report [facility] Work Phone: Comment on above: Release Upon Orderin g for 1 Occurrences starting 03/21/2025, 1 completed Immunizations Immunization Date Immunization Notes Care Provider Fa adama 09-28-2020 zoster vaccine recombinant Luis Enrique Landa MD Work Phone: [facility] Work Phone: 07-27-2020 zoster vaccine recombinant Luis Enrique Landa MD Work Phone: [facility] 12-17-2014 tetanus toxoid, reduced diphtheria toxoid, and acellular pertussis vaccine, adsorbed Luis Enrique Landa MD Work Phone: [facility] Work Phone: Payers Date Payer Category Payer Self-pay 2019 Private Health Insurance [id number] 2019 Private Health Insurance [id number] 1965 Unknown [id number] Unknown [id number] Unknown [id number] Unknown [id number] Social History Date Type Detail Facility Start: 11-18-2022 Tobacco smoking stat us [facility] Never smoked tobacco [facility] Start: 11-18-2022 Tobacco use and exposure Smoke less tobacco non-user [facility] Start: 11-18-2022 End: 05-13-2025 Alcohol intake Current drinker of alcohol (finding) [facility] Start: 11-18-2022 History SDOH Alcohol Frequency 2 [facility] Start: 11-18-2022 History SDOH Alcohol Std Drinks 1 [facility] Start: 11-18-2022 History SDOH Social Connections Phone 98 [facility] Start: 11-18-2022 History SDOH Social Connections Living 3 [facility] Start: 11-18-2022 History SDOH Physica l Activity DPW 4 [facility] Start: 1965 Sex Assigned At Not on file [facility] Start: 11-29-2022 Alcohol Comment [facility] Start: 11-17-2022 End: 04-16-2024 History of Social function [facility] Start: 11-17-2022 End: 04-16-2024 Social connection and isolation panel [facility] In a typical week, h ow many times do you talk on the telephone with family, friends, or neighbors? Patient declined [facility] Are you now , , , , never or living with a partner? [facility] How often to you hav e a drink containing alcohol? Monthly or less [facility] How many standard dr inks containing alcohol do you have on a typical day? 1 or 2 [facility] How often do you hav e 6 or more drinks on 1 occasion? Never [facility] Do you feel stress - tense, restless, nervous, or anxious, or unable to sleep at night because your mind is troubled all the time - these days [OSQ] Only a little [facility] Functional Status Date Assessment Result Facility 01-22-2015 Are you blind, or do you have serious difficulty seeing, even when wearing glasses No 01/22/2015 2:42 PM EDT Keyona Galaviz LPN No [facility] 01-22-2015 Do you have serious difficulty walking or climbing stairs No 01/22/2015 2:42 PM EDT Keyona Galaviz LPN No [facility] 01-22-2015 Do you have difficul ty dressing or bathing No 01/22/2015 2:42 PM EDT Keyona Galaviz LPN No [facility] 01-22-2015 Because of a physica l, mental, or emotional condition, do you have difficulty doing errands alone such as visiting a physician's office or shopping No 01/22/2015 2:42 PM EDT Keyona Galaviz LPN No [facility] 12-17-2014 Are you deaf, or do you have serious difficulty hearing No 12/17/2014 2:17 PM EST Phylicia Ram LPN No [facility] Mental Status Date Assessment Result Facility 01-22-2015 Because of a physica l, mental, or emotional condition, do you have serious difficulty concentrating, remembering, or making decisions No 01/22/2015 2:42 PM EDT Keyona Galaviz LPN No [facility] Clinical Notes 11-18-2022 to 05-13-2025 Patient InstructionsNaomi Centeno PA-C - 05/13/2025 3:55 PM April Nina LPN - 05/13/2025 3:27 PM Gerson Bowie RN - 03/21/2025 9:56 AM Marsha Damian RT(R) - 11/21/2024 7:30 AM EST Note Date & Type Note Facility 05-13-2025 Instructions Naomi Centeno PA-C - 05/13/2025 4:00 PM EDT > 1 year Appt w/ B. ROSA Centeno, SUHAS, ANDRZEJ with PSA prior documented in this encounter [facility] 05-13-2025 Note HNO ID: [id number] Author: NAOMI CENTENO PA-C Service: ? Author Type: Physician [employer] Worker Type: Progress Notes Filed: 05/13/2025 16:47 Note Text: [facility] EST PATIENT CLINIC NOTE (M) Some elements copied from his previous note, which have been updated where appropriate, and all reflect current medical decision making from date of this visit. Note was generated by [employer] and edited as appropriate SERVICE DATE: May 13, 2025 NAME: Corinne Garcia GENDER: male CHIEF COMPLAINT: The patient is a 60-year-old male presenting for a 1-year follow-up, with concerns about PSA levels and erectile dysfunction. HISTORY OF PRESENT ILLNESS: The patient is a 60-year-old male presenting for a 1-year follow-up, with concerns about PSA levels and erectile dysfunction. PSA Monitoring: - Recent PSA level: 0.49, compared to 0.22 two years ago. - Inquires about the frequency of PSA checks. Erectile Dysfunction: - Reports diminished stamina post-orgasm, with difficulty maintaining erections. - Previously on a beta salty, which may have contributed to erectile issues. - Has experienced nocturnal erections accompanied by an ache in the prostate area. - Previously declined Viagra or Cialis; currently undecided about starting these medications. LABS: PSA (ng/mL) Date Value 04/09/2025 0.49 10/20/2022 0.22 07/07/2020 0.23 PSA Screening (ng/mL) Date Value 04/10/2024 0.22 05/24/2016 0.26 Creatinine Date Value Ref Range Status 04/10/2024 0.80 0.73 - 1.22 mg/dL Final 10/20/2022 0.92 0.73 - 1.22 mg/dL Final 11/30/2021 0.91 0.73 - 1.22 mg/dL Final No results found for: TESTOST Hematocrit (%) Date Value 04/10/2024 47.5 11/30/2021 47.1 08/28/2012 47.3 PSA (ng/mL) Date Value 04/09/2025 0.49 10/20/2022 0.22 07/07/2020 0.23 PSA Screening (ng/mL) Date Value 04/10/2024 0.22 05/24/2016 0.26 MEDICATIONS: ibuprofen (MOTRIN) 200 mg tablet Take 800 mg by mouth every 8 hours as needed for pain. metoprolol succinate ER (TOPROL XL) 25 mg 24 hr tablet Take 1 tablet by mouth once daily. acetaminophen (TYLENOL EXTRA STRENGTH) 500 mg tablet Take 500 mg by mouth every 8 hours as needed for pain. naproxen (NAPROSYN) 250 mg tablet Take 250 mg by mouth as needed. PAST MEDICAL HISTORY: PAST MEDICAL HISTORY Diagnosis Date Benign prostatic hyperplasia without lower urinary tract symptoms BPH with obstruction/lower urinary tract symptoms Chest pain at rest Dysphagia Eosinophilic esophagitis Impotence of organic origin Obesity REVIEW OF SYSTEMS: Genitourinary: (+) difficulty maintaining erection, (+) perineal pain associated with nocturnal erection PHYSICAL EXAMINATION: General: Alert AND oriented, no acute distress Skin: Normal HEENT: Pupils equal, round. Oral cavity, oropharynx clear Neck: Supple, no mass Breast: Deferred Respiratory: Clear to auscultation, bilaterally Cardiovascular: Regular rate and rhythm, no murmurs, rubs, or gallops Abdomen: Soft, non-tender, non-distended, no masses palpable, no hepatosplenomegaly, normal bowel sounds Genitourinary: Deferred MSK: Back is non-tender Extremities: No clubbing, cyanosis, or edema PROBLEM LIST REVIEW: Yes LABS: Results for orders placed or performed in visit on 05/13/25 UA DIP, URINE (POC) Result Value Ref Range GLUCOSE UA (POCT) Negative Negative mg/dL BILIRUBIN UA (POCT) Negative Negative KETONE UA (POCT) Negative Negative mg/dL SPECIFIC GRAVITY UA (POCT) 1.020 1.005 - 1.030 HEMOGLOBIN/BLOOD UA (POCT) Negative Negative PH UA (POCT) 6.0 4.5 - 8.0 PROTEIN UA (POCT) Negative Negative mg/dL UROBILINOGEN UA (POCT) 0.2 Normal E.U./dL NITRITE UA (POCT) Negative Negative LEUKOCYTES UA (POCT) Negative Negative COLOR UA (POCT) Dark yellow CLARITY UA (POCT) Clear PROCEDURES: PVR - 0 ml ASSESSMENT/PLAN: 1. Benign prostatic hyperplasia without lower urinary tract symptoms (N40.0) - No current lower urinary tract symptoms. Discussed occasional nocturnal erections accompanied by perineal discomfort; likely related to pelvic floor muscle spasms rather than prostate pathology. 2. Screening for genitourinary condition (Z13.89) - Recent PSA level is 0.49 ng/mL, an increase from 0.22 ng/mL two years ago, but remains well below the threshold of 2.59 ng/mL. Next PSA screening scheduled in one year. 3. 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 Previously deferred pharmacological intervention with PDE5 inhibitors such as Sildenafil or Tadalafil. Discussed potential benefits of these medications in prolonging erection duration. Patient opts to continue monitoring without medication at this time. Chronic > 1 year Appt w/ B. ROSA Centeno, SUHAS, ANDRZEJ with PSA prior Patient Instructions (AVS) - printed for patient (more content not included)... [facility] 05-13-2025 History of Presen t illness Narrative Images from the original note were not included. [facility] EST PATIENT CLINIC NOTE (M) Some elements copied from his previous note, which have been updated where appropriate, and all reflect current medical decision making from date of this visit. Note was generated by [employer] and edited as appropriate SERVICE DATE: May 13, 2025 NAME: Corinne Garcia GENDER: male CHIEF COMPLAINT: The patient is a 60-year-old male presenting for a 1-year follow-up, with concerns about PSA levels and erectile dysfunction. HISTORY OF PRESENT ILLNESS: The patient is a 60-year-old male presenting for a 1-year follow-up, with concerns about PSA levels and erectile dysfunction. PSA Monitoring: - Recent PSA level: 0.49, compared to 0.22 two years ago. - Inquires about the frequency of PSA checks. Erectile Dysfunction: - Reports diminished stamina post-orgasm, with difficulty maintaining erections. - Previously on a beta salty, which may have contributed to erectile issues. - Has experienced nocturnal erections accompanied by an ache in the prostate area. - Previously declined Viagra or Cialis; currently undecided about starting these medications. LABS: PSA (ng/mL) Date Value 04/09/2025 0.49 10/20/2022 0.22 07/07/2020 0.23 PSA Screening (ng/mL) Date Value 04/10/2024 0.22 05/24/2016 0.26 Creatinine Date Value Ref Range Status 04/10/2024 0.80 0.73 - 1.22 mg/dL Final 10/20/2022 0.92 0.73 - 1.22 mg/dL Final 11/30/2021 0.91 0.73 - 1.22 mg/dL Final No results found for: TESTOST Hematocrit (%) Date Value 04/10/2024 47.5 11/30/2021 47.1 08/28/2012 47.3 PSA (ng/mL) Date Value 04/09/2025 0.49 10/20/2022 0.22 07/07/2020 0.23 PSA Screening (ng/mL) Date Value 04/10/2024 0.22 05/24/2016 0.26 MEDICATIONS: ibuprofen (MOTRIN) 200 mg tablet Take 800 mg by mouth every 8 hours as needed for pain. metoprolol succinate ER (TOPROL XL) 25 mg 24 hr tablet Take 1 tablet by mouth once daily. acetaminophen (TYLENOL EXTRA STRENGTH) 500 mg tablet Take 500 mg by mouth every 8 hours as needed for pain. naproxen (NAPROSYN) 250 mg tablet Take 250 mg by mouth as needed. PAST MEDICAL HISTORY: PAST MEDICAL HISTORY Diagnosis Date Benign prostatic hyperplasia without lower urinary tract symptoms BPH with obstruction/lower urinary tract symptoms Chest pain at rest Dysphagia Eosinophilic esophagitis Impotence of organic origin Obesity REVIEW OF SYSTEMS: Genitourinary: (+) difficulty maintaining erection, (+) perineal pain associated with nocturnal erection PHYSICAL EXAMINATION: General: Alert & oriented, no acute distress Skin: Normal HEENT: Pupils equal, round. Oral cavity, oropharynx clear Neck: Supple, no mass Breast: Deferred Respiratory: Clear to auscultation, bilaterally Cardiovascular: Regular rate and rhythm, no murmurs, rubs, or gallops Abdomen: Soft, non-tender, non-distended, no masses palpable, no hepatosplenomegaly, normal bowel sounds Genitourinary: Deferred MSK: Back is non-tender Extremities: No clubbing, cyanosis, or edema PROBLEM LIST REVIEW: Yes LABS: Results for orders placed or performed in visit on 05/13/25 UA DIP, URINE (POC) Result Value Ref Range GLUCOSE UA (POCT) Negative Negative mg/dL BILIRUBIN UA (POCT) Negative Negative KETONE UA (POCT) Negative Negative mg/dL SPECIFIC GRAVITY UA (POCT) 1.020 1.005 - 1.030 HEMOGLOBIN/BLOOD UA (POCT) Negative Negative PH UA (POCT) 6.0 4.5 - 8.0 PROTEIN UA (POCT) Negative Negative mg/dL UROBILINOGEN UA (POCT) 0.2 Normal E.U./dL NITRITE UA (POCT) Negative Negative LEUKOCYTES UA (POCT) Negative Negative COLOR UA (POCT) Dark yellow CLARITY UA (POCT) Clear PROCEDURES: PVR - 0 ml ASSESSMENT/PLAN: 1. Benign prostatic hyperplasia without lower urinary tract symptoms (N40.0) - No current lower urinary tract symptoms. Discussed occasional nocturnal erections accompanied by perineal discomfort; likely related to pelvic floor muscle spasms rather than prostate pathology. 2. Screening for genitourinary condition (Z13.89) - Recent PSA level is 0.49 ng/mL, an increase from 0.22 ng/mL two years ago, but remains well below the threshold of 2.59 ng/mL. Next PSA screening scheduled in one year. 3. 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 Previously deferred pharmacological intervention with PDE5 inhibitors such as Sildenafil or Tadalafil. Discussed potential benefits of these medications in prolonging erection duration. Patient opts to continue monitoring without medication at this time. Chronic > 1 year Appt w/ B. ROSA Centeno, [place], PADominickC with PSA prior Patient Instructions (AVS) - printed for patient - Complete a PSA blood test in one year; the lab order form is provided--have your blood drawn before returning for your follow-up. You will receive a reminder; if you need to cancel that appointment, please call our office. - If you decide to try erectile dysfunction medication, let us know and we can send a prescription for Viagra or Cialis. With a GoodRx coupon at [facility], 30 tablets cost about $29 (around $1 per tablet); [facility] often has lower prices. No office visit is needed to get this prescription. - The achy sensation in your perineum during erections is most consistent with pelvic floor muscle spasms rather than a prostate issue. No further treatment is needed at this time unless your symptoms change. ROSA Woodall MT, PA-C Verified name and date of . CC Post Void Residual HPI: Corinne Garcia is a 60 year old male. The patient is here now for an appointment with ROSA Woodall MT, PA-COV. Procedure: Explained procedure to patient and verbalizes understanding. Performed a PVR. Patient urinated and instructed to empty bladder as much as possible just prior to having PVR done using bladder ultrasound scanner. Results of scan: 0 mL The patient tolerated the procedure well. Plan: Appointment with Naomi. documented in this encounter [facility] 05-13-2025 Note HNO ID: [id number] Author: APRIL MENDOZA LPN Service: ? Author Type: LICENSED NURSE Type: Progress Notes Filed: 05/13/2025 16:47 Note Text: Verified name and date of . CC Post Void Residual HPI: Corinne Garcia is a 60 year old male. The patient is here now for an appointment with ROSA Woodall MT, PA-COV. Procedure: Explained procedure to patient and verbalizes understanding. Performed a PVR. Patient urinated and instructed to empty bladder as much as possible just prior to having PVR done using bladder ultrasound scanner. Results of scan: 0 mL The patient tolerated the procedure well. Plan: Appointment with Naomi. [facility] 03-21-2025 Nurse Note POST OP LEARNING RESPONSE INSTRUCTION PROVIDED TO: Patient and Significant Other METHOD OF INSTRUCTION: Written instruction/Handouts Verbal instruction PATIENT / FAMILY RESPONSE: Verbalizes understanding of: POST-PROCEDURE INSTRUCTIONS-Correct actions to take to reduce post procedure complications FOLLOW-UP PLAN: Patient instructed to call with any further issues SUPPLEMENTAL MATERIAL: Procedure discharge instructions REFERRAL (RECOMMENDATION): None Electronically Signed By: Gerson Ramon RN In Department: [facility] 03-21-2025 Nurse Note POST OP LEARNING RESPONSE INSTRUCTION PROVIDED TO: Patient and Significant Other METHOD OF INSTRUCTION: Written instruction/Handouts Verbal instruction PATIENT / FAMILY RESPONSE: Verbalizes understanding of: POST-PROCEDURE INSTRUCTIONS-Correct actions to take to reduce post procedure complications FOLLOW-UP PLAN: Patient instructed to call with any further issues SUPPLEMENTAL MATERIAL: Procedure discharge instructions REFERRAL (RECOMMENDATION): None Electronically Signed By: Gerson Ramon RN In Department: [facility] PRE OP LEARNING ASSESSMENT PROCEDURE/SURGERY: GI PROCEDURES: Colonoscopy READINESS TO LEARN COGNITIVE ABILITY: Alert and oriented MOTIVATION TO LEARN: Interested FAMILY SUPPORT: None - Unavailable/disinterested PATIENT LEARNS BEST BY: Written Instruction - Hand-outs Verbal Instruction FACTORS AFFECTING LEARNING: None PHYSICAL LIMITATIONS AFFECTING LEARNING: None Electronically Signed By: Gerson Ramon RN In Department: [facility] documented in this encounter [facility] 03-21-2025 History and physical note HISTORY AND PHYSICAL EXAM SERVICE DATE: 03/21/2025 SERVICE TIME: 9:02 AM Subjective HPI: This is a 60 year old male who presents with EOE, polyps PAST ANESTHESIA HISTORY: No history of adverse event PAST MEDICAL HISTORY Diagnosis Date BPH with obstruction/lower urinary tract symptoms Chest pain at rest Dysphagia Eosinophilic esophagitis Obesity PAST SURGICAL HISTORY Procedure Laterality Date COLONOSCOPY FLX DX W/COLLJ SPEC WHEN PFRMD 03/04/2015 Colonoscopy ESOPHAGOGASTRODUODENOSCOPY TRANSORAL DIAGNOSTIC 03/04/2015 EGD ESOPHAGOGASTRODUODENOSCOPY TRANSORAL DIAGNOSTIC 04/02/2018 EGD EXC CSTIC HYGROMA AX/CRV W/O DP NEUROVASC DSJ 1979' back of neck, in office. PAST SURGICAL HISTORY OF left knee repair, meni TONSILLECTOMY & ADENOIDECTOMY Prior to Admission medications as of 03/21/25 0858 Medication Sig Last Dose Taking metoprolol succinate ER (TOPROL XL) 25 mg 24 hr tablet Take 1 tablet by mouth once daily. 03/20/2025 Yes acetaminophen (TYLENOL EXTRA STRENGTH) 500 mg tablet Take 500 mg by mouth every 8 hours as needed for pain. 03/20/2025 Yes naproxen (NAPROSYN) 250 mg tablet Take 250 mg by mouth as needed. 03/19/2025 ALLERGIES Allergen Reactions Penicillins Hives Objective PHYSICAL EXAM: The remainder of the physical exam is noncontributory. AIRWAY: Mouth opening greater than 3 fingerbreadths: Yes Neck Full Range of Motion: Yes LUNGS: Lungs clear to auscultation CARDIAC: Regular rhythm,Regular rate Assessment/Plan ASA Class: ASA Class: Patient with mild systemic disease Active Problems: * No active hospital problems. * Resolved Problems: * No resolved hospital problems. * Exogenous Class 2 Obesity Medication and Non-Pharmacologic VTE Prophylaxis/Anticoagulants VTE Prophylaxis: VTE prophylaxis appropriate Provisional Diagnosis/Treatment Plan: EOE, polyps Sedation Goal: Deep SIGNATURE: Jessy Hazel Jr, MD PATIENT NAME: Corinne Garcia DATE: March 21, 2025 TIME: 9:02 AM [facility] Work Phone: 03-21-2025 History and physical note HISTORY AND PHYSICAL EXAM SERVICE DATE: 03/21/2025 SERVICE TIME: 9:02 AM Subjective HPI: This is a 60 year old male who presents with EOE, polyps PAST ANESTHESIA HISTORY: No history of adverse event PAST MEDICAL HISTORY Diagnosis Date BPH with obstruction/lower urinary tract symptoms Chest pain at rest Dysphagia Eosinophilic esophagitis Obesity PAST SURGICAL HISTORY Procedure Laterality Date COLONOSCOPY FLX DX W/COLLJ SPEC WHEN PFRMD 03/04/2015 Colonoscopy ESOPHAGOGASTRODUODENOSCOPY TRANSORAL DIAGNOSTIC 03/04/2015 EGD ESOPHAGOGASTRODUODENOSCOPY TRANSORAL DIAGNOSTIC 04/02/2018 EGD EXC CSTIC HYGROMA AX/CRV W/O DP NEUROVASC DSJ back of neck, in office. PAST SURGICAL HISTORY OF left knee repair, meni TONSILLECTOMY & ADENOIDECTOMY <AGE 10 Prior to Admission medications as of 03/21/25 0858 Medication Sig Last Dose Taking metoprolol succinate ER (TOPROL XL) 25 mg 24 hr tablet Take 1 tablet by mouth once daily. 03/20/2025 Yes acetaminophen (TYLENOL EXTRA STRENGTH) 500 mg tablet Take 500 mg by mouth every 8 hours as needed for pain. 03/20/2025 Yes naproxen (NAPROSYN) 250 mg tablet Take 250 mg by mouth as needed. 03/19/2025 ALLERGIES Allergen Reactions Penicillins Hives Objective PHYSICAL EXAM: The remainder of the physical exam is noncontributory. AIRWAY: Mouth opening greater than 3 fingerbreadths: Yes Neck Full Range of Motion: Yes LUNGS: Lungs clear to auscultation CARDIAC: Regular rhythm,Regular rate Assessment/Plan ASA Class: ASA Class: Patient with mild systemic disease Active Problems: * No active hospital problems. * Resolved Problems: * No resolved hospital problems. * Exogenous Class 2 Obesity Medication and Non-Pharmacologic VTE Prophylaxis/Anticoagulants VTE Prophylaxis: VTE prophylaxis appropriate Provisional Diagnosis/Treatment Plan: EOE, polyps Sedation Goal: Deep SIGNATURE: Jessy Hazel Jr, MD PATIENT NAME: Corinne Garcia DATE: March 21, 2025 TIME: 9:02 AM documented in this encounter [facility] 03-21-2025 Nurse Note PRE OP LEARNING ASSESSMENT PROCEDURE/SURGERY: GI PROCEDURES: Colonoscopy READINESS TO LEARN COGNITIVE ABILITY: Alert and oriented MOTIVATION TO LEARN: Interested FAMILY SUPPORT: None - Unavailable/disinterested PATIENT LEARNS BEST BY: Written Instruction - Hand-outs Verbal Instruction FACTORS AFFECTING LEARNING: None PHYSICAL LIMITATIONS AFFECTING LEARNING: None Electronically Signed By: Gerson Ramon RN In Department: [facility] 12-02-2024 Telephone encounter Note Spoke with Cheri Flower Pa-C. Patient is advised to wear brace during procedure. He is advised that he can proceed if anesthesia if ok with it. Evelio states he may wait until end of December for his colonoscopy and call James back tomorrow after he checks his work schedule to rearrange his time off. [facility] 12-02-2024 Miscellaneous Notes Spoke with Cheri Flower Pa-C. Patient is advised to wear brace during procedure. He is advised that he can proceed if anesthesia if ok with it. Evelio states he may wait until end of December for his colonoscopy and call James back tomorrow after he checks his work schedule to rearrange his time off. Spoke with patient and advised of information per provider. Patient verbalized understanding. No further questions at this time. Advised to call if any future problems or concerns. Patient debates that he sleeps on his left side and that his wrist is healing. He is wearing a brace with velcro. Had MRI done and he does not require a cast. MRI 11/21/24 Impression IMPRESSION: Healing nondisplaced intra-articular distal radius fracture Evelio says he would prefers that he would to have the colonoscopy done this Monday since he took vacation day for to do the prep and Monday to have colonoscopy. He wants to know what provider thinks? He would like to reschedule toward end december if possible. Please advise [phone] (home) [phone] (cell) Would like a call back from [employer] James today if the colonoscopy has to be rescheduled. He will need to lay on left side. Would probably be best to reschedule. Please advise regrading arm fracture Patient called has colonoscopy scheduled with Dr. Wright and has a brace on his left arm. Its a fracture. Is this going to be a problem the day of his colonoscopy? documented in this encounter [facility] 12-02-2024 Telephone encounter Note Spoke with patient and advised of information per provider. Patient verbalized understanding. No further questions at this time. Advised to call if any future problems or concerns. Patient debates that he sleeps on his left side and that his wrist is healing. He is wearing a brace with velcro. Had MRI done and he does not require a cast. MRI 11/21/24 Impression IMPRESSION: Healing nondisplaced intra-articular distal radius fracture Evelio says he would prefers that he would to have the colonoscopy done this Monday since he took vacation day for to do the prep and Monday to have colonoscopy. He wants to know what provider thinks? He would like to reschedule toward end of December if possible. Please advise [phone] (home) [phone] (cell) Would like a call back from [employer] James today if the colonoscopy has to be rescheduled. [facility] 12-02-2024 Telephone encounter Note He will need to lay on left side. Would probably be best to reschedule. [facility] Work Phone: 12-02-2024 Telephone encounter Note Please advise regrading arm fracture [facility] 12-02-2024 Telephone encounter Note Patient called has colonoscopy scheduled with Dr. Wright and has a brace on his left arm. Its a fracture. Is this going to be a problem the day of his colonoscopy? [facility] 11-22-2024 Telephone encounter Note Noted Luis Enrique Landa MD [facility] 11-22-2024 Miscellaneous Notes Noted Luis Enrique Landa MD FYI: Spoke with pt, he saw [facility] this past Wed who put him in a better brace and the provider stated that if his issue was what was confirmed through MRI then he would just need a cast placed at his next visit on 11/27/24. Pt dropped off copy of the MRI report to [facility] yesterday. Courtney Rae MA Please notify patient that his MRI shows a distal radius non displaced fracture, with intact tendons. Where is he with regards to seeing Ortho, I believe he had an appt with [facility] at some point. Luis Enrique Landa MD documented in this encounter [facility] 11-22-2024 Telephone encounter Note LUCRETIAI: Spoke with pt, he saw [facility] this past Wed who put him in a better brace and the provider stated that if his issue was what was confirmed through MRI then he would just need a cast placed at his next visit on 11/27/24. Pt dropped off copy of the MRI report to [facility] yesterday. Courtney Rae MA [facility] 11-22-2024 Telephone encounter Note Please notify patient that his MRI shows a distal radius non displaced fracture, with intact tendons. Where is he with regards to seeing Ortho, I believe he had an appt with [facility] at some point. Luis Enrique Landa MD [facility] 11-21-2024 History of Presen t illness Narrative Radiology Service Progress Note PATIENT NAME: Corinne Garcia DATE OF SERVICE: November 21, 2024 TIME: 8:09 AM PATIENT IDENTITY VERIFICATION COMPLETED USING TWO (2) IDENTIFIERS: Name and Date of confirmed by patient verbally. FALL SCREENING: Has the patient had 2 falls in the last year or 1 fall with injury or currently using an Ambulatory Assistive Device (Walker, Cane, Wheelchair, Crutches, etc.)? No PATIENT GENDER DATA: Male PATIENT RELEVANT IMPLANT DATA REVIEWED: Yes PATIENT PRESENTS WITH AN IMPLANTABLE OR ATTACHED LEAD GENERATION MARKETING MANAGER: No RADIOLOGY DEPARTMENT: MR; Exam(s) Completed: Upper MSK: Forearm, left PERIPHERAL IV DATA: Not applicable SIGNED BY: RT Oscar(Mariia) November 21, 2024 8:09 AM documented in this encounter [facility] 11-21-2024 Note HNO ID: [id number] Author: MARSHA ANGELES RT(Mariia) Service: ? Author Type: Technologist Type: Progress Notes Filed: 11/21/2024 08:09 Note Text: Radiology Service Progress Note PATIENT NAME: Corinne Garcia DATE OF SERVICE: November 21, 2024 TIME: 8:09 AM PATIENT IDENTITY VERIFICATION COMPLETED USING TWO (2) IDENTIFIERS: Name and Date of confirmed by patient verbally. FALL SCREENING: Has the patient had 2 falls in the last year or 1 fall with injury or currently using an Ambulatory Assistive Device (Walker, Cane, Wheelchair, Crutches, etc.)? No PATIENT GENDER DATA: Male PATIENT RELEVANT IMPLANT DATA REVIEWED: Yes PATIENT PRESENTS WITH AN IMPLANTABLE OR ATTACHED LEAD GENERATION MARKETING MANAGER: No RADIOLOGY DEPARTMENT: MR; Exam(s) Completed: Upper MSK: Forearm, left PERIPHERAL IV DATA: Not applicable SIGNED BY: RT Oscar(R) November 21, 2024 8:09 AM [facility] 11-11-2024 History of Presen t illness Narrative Chief Complaint Patient presents with: Hand Pain: Left hand HPI Corinne Garcia is a 59 year old male who presents here today for an hand injury and pain Pt injured left hand/arm on Monday11/02/24 when he was pull starting a generator, heard a pop when the cord recoiled. [place] a tearing sensation up his entire medial arm. Was evaluated at [facility] ER, had xray done; no bony injury noted. The swelling is down some, but the pain worsened 11/07/24. Had bruising to the inner arm that has improved, pain with flexing, unable to fully flex fingers. Rated pain 7/10, constant. He states he has pain in the forearm that is dull, ache but with making a fist he has an intense radiating pain up the inner arm. Some pain in the bicep as well but most of the pain is in the lower arm and hand. Has some tingling in the fingers. Trouble sleeping due to the pain. He has appt next week 11/20/24 with [facility] but pt feels that he can not wait that long. Has missed last 2 days of work due to the pain. He has used a splint, elevating the arm when he can, ice, tylenol and ibuprofen throughout the day which isn't helping much. Feels better when he has his arm hanging down but then feels the swelling starting up again. He was not given anything to take at home for pain from ER. Below copied from [facility] ER 11/02/24: Patient presents with left wrist injury and pain. He states this morning he was pulling on a cord on a generator with both hands and it recoiled back and pulled on his left wrist and he heard a pop. He states he has had left wrist pain and swelling since. He denies any fall on outstretched hand. No numbness or weakness. No pain in the left hand. No pain left elbow. No wound. He is right-hand dominant. I consulted with radiologist Dr. Gay and discussed x-ray images. No definite fracture on x-ray. On reevaluation: Patient resting in bed, no distress. Updated on results. Discussed possible etiologies of symptoms including possible ligamentous, tendon, other underlying soft tissue injury. No definite fracture on x-ray imaging. Discussed if symptoms persist, additional evaluation and imaging will be needed. Discussed wrist splint, RICE therapy, and orthopedic follow-up. He is agreeable with plan. At this time, patient feels comfortable going home. Instructed on signs and symptoms to watch for and reasons to return to the emergency department, otherwise follow-up with orthopedics and primary. * * * * * * * * ADDENDUM #1 * * * * * * * * A discussion was had with the emergency room physician regarding the small irregularity along the dorsal aspect of the distal radius. This is most likely a chronic finding. No definitive linear defect is seen which extends through the distal radius. If there would be high clinical suspicion for occult fracture, CT or repeat/follow-up radiographs could be considered. Past medical history, appointments, medications, allergies reviewed. Previous Medical History PAST MEDICAL HISTORY Diagnosis Date BPH with obstruction/lower urinary tract symptoms Chest pain at rest Dysphagia Eosinophilic esophagitis Obesity Previous Surgical History PAST SURGICAL HISTORY Procedure Laterality Date COLONOSCOPY FLX DX W/COLLJ SPEC WHEN PFRMD 03/04/2015 Colonoscopy ESOPHAGOGASTRODUODENOSCOPY TRANSORAL DIAGNOSTIC 03/04/2015 EGD ESOPHAGOGASTRODUODENOSCOPY TRANSORAL DIAGNOSTIC 04/02/2018 EGD EXC CSTIC HYGROMA AX/CRV W/O DP NEUROVASC DSJ 1979' back of neck, in office. PAST SURGICAL HISTORY OF left knee repair, meni TONSILLECTOMY & ADENOIDECTOMY <AGE 10 Family History FAMILY HISTORY Problem Relation Age of Onset Heart Father [place] in 40s; smoker Hypertension Father Diabetes Father Hypertension Mother Diabetes Mother Heart Paternal Grandfather Patient Allergies ALLERGIES Allergen Reactions Penicillins Hives Current Medications Current Outpatient Medications on File Prior to Visit Medication Sig metoprolol succinate ER (TOPROL XL) 25 mg 24 hr tablet Take 1 tablet by mouth once daily. acetaminophen (TYLENOL EXTRA STRENGTH) 500 mg tablet Take 500 mg by mouth every 8 hours as needed for pain. naproxen (NAPROSYN) 250 mg tablet Take 250 mg by mouth as needed. No current facility-administered medications on file prior to visit. Social History Social History Tobacco Use Smoking status: Never Smokeless tobacco: Never Vaping Use Vaping status: Never Used Substance Use Topics Alcohol use: Yes Comment: occasionally Drug use: Not Currently Types: Marijuana Comment: In high school EXAM: BP 140/90 Pulse 92 Resp 16 Wt 124.5 kg (274 lb 7.6 oz) BMI 39.38 kg/m General Appearance: Well appearing, alert, in no acute distress, well-hydrated, well nourished. and Overweight. Extremities: left arm; bruising and swelling mid to distal forearm, tenderness to soft tissue in mid to distal forearm. Able to flex fingers, but not fully, pain with resisted flexion. Good ROM of wrist, no bony tenderness noted Health Maintenance List Pneumococcal Vaccine: 50+(1 of 1 - PCV) Never done Colorectal Cancer Screening due on 04/02/2023 Influenza Vaccine(1) Never done Covid-19 Vaccine(3 - 2023- season) due on 07/14/2024 DTaP,Tdap,Td Vaccine(2 - Td or Tdap) due on 12/17/2024 Depression Screening due on 04/22/2025 Anxiety Screening due on 04/22/2025 Diabetes Screening due on 04/10/2027 Lipid Screening due on 04/10/2029 Prostate Cancer Screening Discussion due on 04/10/2029 RSV Vaccine(1 - 1-dose 75+ series) due on 2038 Hepatitis C Screening Completed HIV Screening Completed Shingrix Vaccine Completed Data reviewed ER visit at [facility] on 11/02/24 ASSESSMENT/PLAN: 1. Left arm pain - ICD9: 729.5, ICD10: M79.602 Concern for partial or complete muscle/tendon tear; with worsening pain and lack of function #6 percocet given Continue with Tylenol, Ibuprofen, ice; continue splint MRI ordered, depending on results may refer to Physical Therapy Follow up as needed. Will notify of MRI results. I agree with the Chief Complaint, ROS, and Past Histories independently gathered by the clinical logistics support and the remaining scribed note accurately describes my personal service to the patient. Medical Decision Making: Problems: Low: Acute, uncomplicated illness or injury Data: Unique test(s) ordered: 1 Risk: Moderate: Drug management Medical Decision Making Level: 3 - Low Luis Enrique Landa MD The documentation for this note was completed by Courtney Rae MA acting as scribe for Luis Enrique Landa MD. November 11, 2024 2:10 PM. Courtney Rae MA documented in this encounter [facility] 11-11-2024 Note HNO ID: [id number] Author: LUIS ENRIQUE LANDA MD Service: ? Author Type: Physician Type: Progress Notes Filed: 11/11/2024 18:27 Note Text: Chief Complaint Patient presents with: Hand Pain: Left hand HPI Corinne Garcia is a 59 year old male who presents here today for an hand injury and pain Pt injured left hand/arm on Monday11/02/24 when he was pull starting a generator, heard a pop when the cord recoiled. [place] a tearing sensation up his entire medial arm. Was evaluated at [facility] ER, had xray done; no bony injury noted. The swelling is down some, but the pain worsened 11/07/24. Had bruising to the inner arm that has improved, pain with flexing, unable to fully flex fingers. Rated pain 7/10, constant. He states he has pain in the forearm that is dull, ache but with making a fist he has an intense radiating pain up the inner arm. Some pain in the bicep as well but most of the pain is in the lower arm and hand. Has some tingling in the fingers. Trouble sleeping due to the pain. He has appt next week 11/20/24 with [facility] but pt feels that he can not wait that long. Has missed last 2 days of work due to the pain. He has used a splint, elevating the arm when he can, ice, tylenol and ibuprofen throughout the day which isn't helping much. Feels better when he has his arm hanging down but then feels the swelling starting up again. He was not given anything to take at home for pain from ER. Below copied from [facility] ER 11/02/24: Patient presents with left wrist injury and pain. He states this morning he was pulling on a cord on a generator with both hands and it recoiled back and pulled on his left wrist and he heard a pop. He states he has had left wrist pain and swelling since. He denies any fall on outstretched hand. No numbness or weakness. No pain in the left hand. No pain left elbow. No wound. He is right-hand dominant. I consulted with radiologist Dr. Gay and discussed x-ray images. No definite fracture on x-ray. On reevaluation: Patient resting in bed, no distress. Updated on results. Discussed possible etiologies of symptoms including possible ligamentous, tendon, other underlying soft tissue injury. No definite fracture on x-ray imaging. Discussed if symptoms persist, additional evaluation and imaging will be needed. Discussed wrist splint, RICE therapy, and orthopedic follow-up. He is agreeable with plan. At this time, patient feels comfortable going home. Instructed on signs and symptoms to watch for and reasons to return to the emergency department, otherwise follow-up with orthopedics and primary. * * * * * * * * ADDENDUM #1 * * * * * * * * A discussion was had with the emergency room physician regarding the small irregularity along the dorsal aspect of the distal radius. This is most likely a chronic finding. No definitive linear defect is seen which extends through the distal radius. If there would be high clinical suspicion for occult fracture, CT or repeat/follow-up radiographs could be considered. Past medical history, appointments, medications, allergies reviewed. Previous Medical History PAST MEDICAL HISTORY Diagnosis Date BPH with obstruction/lower urinary tract symptoms Chest pain at rest Dysphagia Eosinophilic esophagitis Obesity Previous Surgical History PAST SURGICAL HISTORY Procedure Laterality Date COLONOSCOPY FLX DX W/COLLJ SPEC WHEN PFRMD 03/04/2015 Colonoscopy ESOPHAGOGASTRODUODENOSCOPY TRANSORAL DIAGNOSTIC 03/04/2015 EGD ESOPHAGOGASTRODUODENOSCOPY TRANSORAL DIAGNOSTIC 04/02/2018 EGD EXC CSTIC HYGROMA AX/CRV W/O DP NEUROVASC DSJ back of neck, in office. PAST SURGICAL HISTORY OF left knee repair, meni TONSILLECTOMY AND ADENOIDECTOMY Family History FAMILY HISTORY Problem Relation Age of Onset Heart Father [place] in 40s; smoker Hypertension Father Diabetes Father Hypertension Mother Diabetes Mother Heart Paternal Grandfather Patient Allergies ALLERGIES Allergen Reactions Penicillins Hives Current Medications Current Outpatient Medications on File Prior to Visit Medication Sig metoprolol succinate ER (TOPROL XL) 25 mg 24 hr tablet Take 1 tablet by mouth once daily. acetaminophen (TYLENOL EXTRA STRENGTH) 500 mg tablet Take 500 mg by mouth every 8 hours as needed for pain. naproxen (NAPROSYN) 250 mg tablet Take 250 mg by mouth as needed. No current facility-administered medications on file prior to visit. Social History Social History Tobacco Use Smoking status: Never Smokeless tobacco: Never Vaping Use Vaping status: Never Used Substance Use Topics Alcohol use: Yes Comment: occasionally Drug use: Not Currently Types: Marijuana Comment: In high school EXAM: BP 140/90 Pulse 92 Resp 16 Wt 124.5 kg (274 lb 7.6 oz) BMI 39.38 kg/m? General Appearance: Well appearing, alert, in no acute distress, well-hydrated, well nourished. and Overweight (more content not included)... [facility] 10-03-2024 Telephone encounter Note 12/06/24 [facility] 10-03-2024 Miscellaneous Notes 12/06/24 documented in this encounter [facility] 10-03-2024 Telephone encounter Note 12/06/24 [facility] 10-03-2024 Miscellaneous Notes 12/06/24 documented in this encounter [facility] 05-13-2024 Nurse Note REVIEW OF SYSTEMS: General: The patient denies fatigue, denies weight loss, NOTES weight gain, denies feeling hot, and denies feelings of cold. Eyes: The patient denies glaucoma, denies eye injury/surgery, wears glasses or contacts. Ear/Nose/Throat: The patient NOTES allergies, denies hayfever, denies ear infections, and denies bloody noses. Cardiovascular: The patient NOTES chest pain, denies heart disease, NOTES high blood pressure,denies cardiac stent, denies prior heart attack, denies irregular heart beat, NOTES high cholesterol, denies poor circulation, denies heart failure, other cardiac issues, denies claudication, denies cold feet, denies peripheral arterial stent. Respiratory: The patient denies tuberculosis, denies pneumonia, denies frequent cough, denies pulmonary embolism, denies shortness of breath, and denies coughing up blood. Gastrointestinal: The patient NOTES difficulty swallowing, denies acid reflux, denies ulcers, denies vomiting, denies jaundice/hepatitis, denies gallbladder problems, denies black or tarry stools, denies hemorrhoids, denies bleeding from rectum, denies diverticulitis, denies constipation, denies diarrhea, denies loss of stool control, and denies hernias. Kidney/Bladder: The patient denies kidney stones, denies urine infections, and denies bloody urine. Skin: The patient denies a history of skin cancer, denies bleeding/changing moles, and denies a history of skin rash. Neurologic: The patient denies a history of epilepsy/convulsions, denies headaches, denies head/spinal injuries, and denies stroke/TIA. Psychiatric: The patient denies psychiatric medications, denies depression, and denies voices, denies substance abuse. Endocrine: The patient denies thyroid disorders, denies diabetes, and denies hormonal problems. Hematologic: The patient denies a history of bruising, denies bleeding, and denies anemia, denies blood clots. Infections: The patient denies a history of measles and mumps, denies rheumatic fever, and denies sexually transmitted diseases. Musculoskeletal: The patient denies back pain/injury, denies back problems, denies sciatica, denies knee/foot trouble, denies arthritis, or denies gout. When was patient's last Mammogram screening? N/A Last Colonoscopy: 2017 Karla Glass RN [facility] 05-13-2024 Nurse Note REVIEW OF SYSTEMS: General: The patient denies fatigue, denies weight loss, NOTES weight gain, denies feeling hot, and denies feelings of cold. Eyes: The patient denies glaucoma, denies eye injury/surgery, wears glasses or contacts. Ear/Nose/Throat: The patient NOTES allergies, denies hayfever, denies ear infections, and denies bloody noses. Cardiovascular: The patient NOTES chest pain, denies heart disease, NOTES high blood pressure,denies cardiac stent, denies prior heart attack, denies irregular heart beat, NOTES high cholesterol, denies poor circulation, denies heart failure, other cardiac issues, denies claudication, denies cold feet, denies peripheral arterial stent. Respiratory: The patient denies tuberculosis, denies pneumonia, denies frequent cough, denies pulmonary embolism, denies shortness of breath, and denies coughing up blood. Gastrointestinal: The patient NOTES difficulty swallowing, denies acid reflux, denies ulcers, denies vomiting, denies jaundice/hepatitis, denies gallbladder problems, denies black or tarry stools, denies hemorrhoids, denies bleeding from rectum, denies diverticulitis, denies constipation, denies diarrhea, denies loss of stool control, and denies hernias. Kidney/Bladder: The patient denies kidney stones, denies urine infections, and denies bloody urine. Skin: The patient denies a history of skin cancer, denies bleeding/changing moles, and denies a history of skin rash. Neurologic: The patient denies a history of epilepsy/convulsions, denies headaches, denies head/spinal injuries, and denies stroke/TIA. Psychiatric: The patient denies psychiatric medications, denies depression, and denies voices, denies substance abuse. Endocrine: The patient denies thyroid disorders, denies diabetes, and denies hormonal problems. Hematologic: The patient denies a history of bruising, denies bleeding, and denies anemia, denies blood clots. Infections: The patient denies a history of measles and mumps, denies rheumatic fever, and denies sexually transmitted diseases. Musculoskeletal: The patient denies back pain/injury, denies back problems, denies sciatica, denies knee/foot trouble, denies arthritis, or denies gout. When was patient's last Mammogram screening? N/A Last Colonoscopy: 2018 Karla Glass RN documented in this encounter [facility] 05-13-2024 History of Presen t illness Narrative HISTORY AND PHYSICAL Corinne Garcia : 1965 REFERRING PHYSICIAN: Luis Enrique Landa [address] [facility] [address] CHIEF COMPLAINT: Patient presents with: Consult: Colonoscopy consultation. HPI: Corinne is a 59 year old male referred for endoscopy. Corinne notes history of colonic polyps. Patient denies any change in bowel habits, weight changes, blood in stools, black tarry stools or abdominal pain. Denies family history of colon issues. Corinne notes continued dysphagia. Evelio has a history of EOE, he refers the burning sensation he got with that has subsided. He refers he has a reaction to PPIs and doesn't take one. He refers that it is mostly with starchy, dry foods. Corinne has undergone prior endoscopy. Last EGD and colonoscopy was 03/[address] Vicente EGD Impression: - Esophageal mucosal changes secondary to eosinophilic esophagitis. Biopsied. - Gastritis. Biopsied. - Erythematous duodenopathy. Colonoscopy: Impression: - The entire examined colon is normal. - No specimens collected. Pathology: CONVERTED FINAL DIAGNOSIS (Final) Unknown 1. Stomach, antrum, biopsy (A) - Gastric oxyntic-type mucosa with no diagnostic abnormality. 2. Esophagus, biopsy (B) - Squamous mucosa with reactive epithelial changes and increased intraepithelial eosinophils (up to 42 eosinophils per high magnification field); see comment. JEL/dss 04/04/2018 Current Outpatient Medications Medication Sig metoprolol succinate ER (TOPROL XL) 25 mg 24 hr tablet Take 1 tablet by mouth once daily. acetaminophen (TYLENOL EXTRA STRENGTH) 500 mg tablet Take 500 mg by mouth every 8 hours as needed for pain. naproxen (NAPROSYN) 250 mg tablet Take 250 mg by mouth as needed. No current facility-administered medications for this visit. ALLERGIES: Penicillins PAST MEDICAL HISTORY Diagnosis Date BPH with obstruction/lower urinary tract symptoms Chest pain at rest Dysphagia Eosinophilic esophagitis Obesity PAST SURGICAL HISTORY Procedure Laterality Date COLONOSCOPY FLX DX W/COLLJ SPEC WHEN PFRMD 03/04/2015 Colonoscopy ESOPHAGOGASTRODUODENOSCOPY TRANSORAL DIAGNOSTIC 03/04/2015 EGD ESOPHAGOGASTRODUODENOSCOPY TRANSORAL DIAGNOSTIC 04/02/2018 EGD EXC CSTIC HYGROMA AX/CRV W/O DP NEUROVASC DSJ 1979' back of neck, in office. PAST SURGICAL HISTORY OF left knee repair, meni TONSILLECTOMY & ADENOIDECTOMY <AGE 10 FAMILY HISTORY Problem Relation Age of Onset Heart Father [place] in 40s; smoker Hypertension Father Diabetes Father Hypertension Mother Diabetes Mother Heart Paternal Grandfather Social History Tobacco Use Smoking status: Never Smokeless tobacco: Never Vaping Use Vaping Use: Never used Substance Use Topics Alcohol use: Yes Comment: occasionally Drug use: Not Currently Types: Marijuana Comment: In high school REVIEW OF SYMPTOMS: The review of systems data was entered by the nurse and reviewed by me Nursing Notes: Karla Glass RN 05/13/2024 3:54 PM Signed REVIEW OF SYSTEMS: General: The patient denies fatigue, denies weight loss, NOTES weight gain, denies feeling hot, and denies feelings of cold. Eyes: The patient denies glaucoma, denies eye injury/surgery, wears glasses or contacts. Ear/Nose/Throat: The patient NOTES allergies, denies hayfever, denies ear infections, and denies bloody noses. Cardiovascular: The patient NOTES chest pain, denies heart disease, NOTES high blood pressure,denies cardiac stent, denies prior heart attack, denies irregular heart beat, NOTES high cholesterol, denies poor circulation, denies heart failure, other cardiac issues, denies claudication, denies cold feet, denies peripheral arterial stent. Respiratory: The patient denies tuberculosis, denies pneumonia, denies frequent cough, denies pulmonary embolism, denies shortness of breath, and denies coughing up blood. Gastrointestinal: The patient NOTES difficulty swallowing, denies acid reflux, denies ulcers, denies vomiting, denies jaundice/hepatitis, denies gallbladder problems, denies black or tarry stools, denies hemorrhoids, denies bleeding from rectum, denies diverticulitis, denies constipation, denies diarrhea, denies loss of stool control, and denies hernias. Kidney/Bladder: The patient denies kidney stones, denies urine infections, and denies bloody urine. Skin: The patient denies a history of skin cancer, denies bleeding/changing moles, and denies a history of skin rash. Neurologic: The patient denies a history of epilepsy/convulsions, denies headaches, denies head/spinal injuries, and denies stroke/TIA. Psychiatric: The patient denies psychiatric medications, denies depression, and denies voices, denies substance abuse. Endocrine: The patient denies thyroid disorders, denies diabetes, and denies hormonal problems. Hematologic: The patient denies a history of bruising, denies bleeding, and denies anemia, denies blood clots. Infections: The patient denies a history of measles and mumps, denies rheumatic fever, and denies sexually transmitted diseases. Musculoskeletal: The patient denies back pain/injury, denies back problems, denies sciatica, denies knee/foot trouble, denies arthritis, or denies gout. When was patient's last Mammogram screening? N/A Last Colonoscopy: 2018 Karla Glass RN PHYSICAL EXAMINATION: General: The patient is 59 year old, male well nourished, well hydrated in no acute distress. The patient is oriented to time, place, and person. VITALS: Blood pressure 118/70, pulse 89, temperature 36.4 C (97.5 F), height 177.8 cm (5' 10), weight 128.3 kg (282 lb 12.8 oz), SpO2 98%. Body mass index is 40.58 kg/m . HEENT: Normal cephalic, ataumatic, pupils are equally round, sclera are anicteric, mucous membranes are moist, oropharynx is clear. Neck has no masses, asymmetry or lymphadenopathy. Respiratory: Clear to auscultation and percussion. Normal respiratory excursion and pattern. Cardiac: Examination is regular rate and rhythm. Normal S1/S2 Abdominal exam: Soft, nontender, with no palpable masses. No hepatosplenomegaly. No palpable hernias. Extremities: no clubbing, cyanosis or edema. No adenopathy. LABORATORY VALUES: As Noted RADIOLOGIC STUDIES: As Noted Assessment IMPRESSION: History of colonic polyps,eosinophilic esophagitis, dysphagia PLAN: I have reviewed my findings with the surgeon. Will plan for upper and lower endoscopy. We discussed the risks and benefits of the planned endoscopy. I have informed the patient that complications can occur including failure to complete the endoscopy and perforation. Corinne had the opportunity to ask questions concerning the planned endoscopy. My staff has also explained the procedure to the patient in understandable terms and has given the patient printed material concerning the procedure. Corinne freely consents to surgery. I plan to use Golytely bowel preparation I have explained to the patient the difference between IV conscious sedation and MAC anesthesia - and I have offered either, according to the patient's wishes. I have explained that with IV conscious sedation there is no anesthesia provider available and therefore there is a limitation of the amount of IV medications that can be given and that the patient may wake up in the middle of the procedure and/or experience pain/discomfort during the procedure. Further discussion was done and the patient was given the opportunity to ask questions and all questions were answered. Corinne chooses MAC anesthesia- last scope he received 100mcg of fentanyl and 8mg of midazolam- Corinne is concerned about waking up during the procedure. Corinne was counseled that if there are changes in his/her medical condition, to let the office know if surgery should proceed. If there are changes in patient's medical condition from time of this encounter to the day of the procedure that preclude anesthesia, patient may have procedure cancelled for patient's safety. Diagnoses: (Z86.010) History of colonic polyps (primary encounter diagnosis) (K20.0) Eosinophilic esophagitis (R13.10) Dysphagia, unspecified type (Z12.11) Screening for colon cancer Consultation requested by Dr. Landa for an opinion regarding history of colonic polyps, EOE, dysphagia. My final recommendations will be communicated back to the requesting physician by way of shared Medical record. Portions of this documentation were copied and pasted from previous office visit notes in order to provide a cohesive continuity of the history. The note has been reviewed and edited and updated as necessary. Basia Clement APRN.DAVID documented in this encounter [facility] 04-22-2024 History of Presen t illness Narrative Chief Complaint Follow up HPI Corinne Garcia is a 59 year old male who presents here today for follow up No bowel, Gi, or urinary issues. Follows with Naomi Centeno in Urology for BPH. Has had endoscopy done twice because she gets food stuck occ in the throat and has Eosinophilic esophagitis. Last Colonoscopy done in 2018 was normal, 2015 had adenomatous polyp removed Lipid and Obesity: Tries to watch diet. No longer taking Lipitor 10 mg daily as it caused muscle aches and joint pain. He is not interested in using any injectables or medications to lose weight. He states that he knows what he needs to do just needs to do it. He has been eating more salads but admits to adding some unhealthy toppings to it. Was on diet pop for decades, quit the diet and went back to regular pop. He has been using Stevia pops for the last 3 months or so. He thinks his biggest down fall is carbs, he likes bread. He does not eat much fast food. He enjoys cooking and eating. HTN: Taking Toprol xl 25 mg once daily. No chest pains, dizziness, or SOB. Does check BP at home with readings running 130-117/80-70. Behavioral Health Screening PHQ-2 Score: 0 (Lower risk for depression) LADARIUS-2 Score: 0 (Lower risk for anxiety) Recommendation: no further intervention at this time Past medical history, appointments, medications, allergies reviewed. Previous Medical History PAST MEDICAL HISTORY Diagnosis Date BPH with obstruction/lower urinary tract symptoms Chest pain at rest Dysphagia Eosinophilic esophagitis Obesity Previous Surgical History PAST SURGICAL HISTORY Procedure Laterality Date COLONOSCOPY FLX DX W/COLLJ SPEC WHEN PFRMD 03/04/2015 Colonoscopy ESOPHAGOGASTRODUODENOSCOPY TRANSORAL DIAGNOSTIC 03/04/2015 EGD ESOPHAGOGASTRODUODENOSCOPY TRANSORAL DIAGNOSTIC 04/02/2018 EGD EXC CSTIC HYGROMA AX/CRV W/O DP NEUROVASC DSJ 1979' back of neck, in office. PAST SURGICAL HISTORY OF left knee repair, meni TONSILLECTOMY & ADENOIDECTOMY <AGE 10 Family History FAMILY HISTORY Problem Relation Age of Onset Heart Father [place] in 40s; smoker Hypertension Father Diabetes Father Hypertension Mother Diabetes Mother Heart Paternal Grandfather Patient Allergies ALLERGIES Allergen Reactions Penicillins Hives Current Medications Current Outpatient Medications on File Prior to Visit Medication Sig metoprolol succinate ER (TOPROL XL) 25 mg 24 hr tablet take 1 tablet by mouth every day atorvastatin (LIPITOR) 10 mg tablet Take 1 tablet by mouth once daily. naproxen (NAPROSYN) 250 mg tablet Take 250 mg by mouth as needed. No current facility-administered medications on file prior to visit. Social History Social History Tobacco Use Smoking status: Never Smokeless tobacco: Never Vaping Use Vaping Use: Never used Substance Use Topics Alcohol use: Yes Comment: occasionally Drug use: Not Currently Types: Marijuana Comment: In high school EXAM: BP 130/80 Pulse 78 Resp 16 Ht 177.8 cm (5' 10) Wt 129.1 kg (284 lb 9.6 oz) BMI 40.84 kg/m General Appearance: Well appearing, alert, in no acute distress, well-hydrated, well nourished. and Obese. Lungs: Lungs clear to auscultation. No wheezing, rhonchi, rales.. Heart: RRR without murmur, gallop, or rubs. No ectopy. Health Maintenance List RSV Vaccine(1 - 1-dose 60+ series) Never done Colorectal Cancer Screening due on 04/02/2023 Behavioral Health Screening Never done Covid-19 Vaccine( season) due on 04/22/2025 Influenza Vaccine(Season Ended) due on 07/14/2024 DTaP,Tdap,Td Vaccine(2 - Td or Tdap) due on 12/17/2024 Diabetes Screening due on 04/10/2027 Lipid Screening due on 04/10/2029 Prostate Cancer Screening Discussion due on 04/10/2029 Hepatitis C Screening Completed HIV Screening Completed Shingrix Vaccine Completed Data reviewed Results Only on 04/16/2024 Component Date Value GLUCOSE UA (POCT) 04/16/2024 Negative BILIRUBIN UA (POCT) 04/16/2024 Negative KETONE UA (POCT) 04/16/2024 Negative SPECIFIC GRAVITY UA (POC* 04/16/2024 >=1.030 HEMOGLOBIN/BLOOD UA (PO* 04/16/2024 Negative PH UA (POCT) 04/16/2024 6.0 PROTEIN UA (POCT) 04/16/2024 Negative UROBILINOGEN UA (POCT) 04/16/2024 1.0 NITRITE UA (POCT) 04/16/2024 Negative LEUKOCYTES UA (POCT) 04/16/2024 Negative COLOR UA (POCT) 04/16/2024 Dark yellow CLARITY UA (POCT) 04/16/2024 Clear Appointment on 04/10/2024 Component Date Value Protein, Total 04/10/2024 6.9 Albumin 04/10/2024 4.2 Calcium, Total 04/10/2024 9.7 Bilirubin, Total 04/10/2024 0.6 Alkaline Phosphatase 04/10/2024 91 AST 04/10/2024 17 ALT 04/10/2024 24 Glucose 04/10/2024 102 (H) BUN 04/10/2024 11 Creatinine 04/10/2024 0.80 Sodium 04/10/2024 139 Potassium 04/10/2024 4.2 Chloride 04/10/2024 107 (H) CO2 04/10/2024 24 Anion Gap 04/10/2024 8 (L) Estimated Glomerular Bi* 04/10/2024 101 Cholesterol, Total 04/10/2024 204 (H) Triglyceride 04/10/2024 70 HDL Cholesterol 04/10/2024 39 (L) Non HDL Cholesterol 04/10/2024 165 (H) Fasting Time 04/10/2024 13 VLDL Cholesterol 04/10/2024 14 TC:HDL Ratio 04/10/2024 5.23 (H) LDL Cholesterol 04/10/2024 151 (H) LDL:HDL Ratio 04/10/2024 3.87 (H) WBC 04/10/2024 5.93 RBC 04/10/2024 5.41 Hemoglobin 04/10/2024 16.0 Hematocrit 04/10/2024 47.5 MCV 04/10/2024 87.8 MCH 04/10/2024 29.6 MCHC 04/10/2024 33.7 RDW-CV 04/10/2024 13.2 Platelet Count 04/10/2024 276 MPV 04/10/2024 9.9 Neutrophils % 04/10/2024 52.2 Abs Neut 04/10/2024 3.10 Lymphocytes % 04/10/2024 29.2 Abs Lymph 04/10/2024 1.73 Monocytes % 04/10/2024 10.5 Abs [place] 04/10/2024 0.62 Eosinophils % 04/10/2024 7.1 Abs Eosin 04/10/2024 0.42 Basophils % 04/10/2024 0.8 Abs Baso 04/10/2024 0.05 Immature Granulocytes % 04/10/2024 0.2 Abs Immature Gran 04/10/2024 <0.03 NRBC 04/10/2024 0.0 Absolute nRBC 04/10/2024 <0.01 Diff Type 04/10/2024 Auto Hemoglobin A1C 04/10/2024 5.5 Estimated Average Glucose 04/10/2024 111 PSA Screening 04/10/2024 0.22 ASSESSMENT/PLAN: 1. Wellness examination - ICD9: V70.0, ICD10: Z00.00 (primary diagnosis) - Counseled on healthy diet and regular exercise - Discussed need for and benefit of weight loss. BMI 40.84 kg/(m^2) - Colorectal cancer screening recommended - agrees to Colonoscopy - Follow up for annual exam in one year 2. Mixed hyperlipidemia - ICD9: 272.2, ICD10: E78.2 - Worsening control The 10-year ASCVD risk score (Kervin DK, et al., 2019) is: 11.6% Values used to calculate the score: Age: 59 years Sex: Male Is Non- : No Diabetic: No Tobacco smoker: No Systolic Blood Pressure: 130 mmHg Is BP treated: No HDL Cholesterol: 39 mg/dL Total Cholesterol: 204 mg/dL - Counseled on healthy diet and regular exercise - Discussed need for and benefit of weight loss. BMI 40.84 kg/(m^2) - METOPROLOL SUCCINATE ER 25 MG TABLET,EXTENDED RELEASE 24 HR 3. Screening for colon cancer - ICD9: V76.51, ICD10: Z12.11 Consult General Surgery for colonoscopy 4. Eosinophilic esophagitis - ICD9: 530.13, ICD10: K20.0 Consult General Surgery for EGD 5. Primary hypertension - ICD9: 401.9, ICD10: I10 - Controlled - Continue current medications - Recommend home blood pressure monitoring, to bring results to next visit - Encouraged sodium restriction, DASH or Mediterranean diet - Recommend regular aerobic exercise - Discussed need for and benefit of weight loss. BMI 40.84 kg/(m^2) 6. Class 3 severe obesity due to excess calories without serious comorbidity with body mass index (BMI) of 40.0 to 44.9 in adult (HCC) - ICD9: 278.01, V85.41, ICD10: E66.01, Z68.41 Weight increasing Recommend healthy diet and exercise Follow up in 1 year with fasting labs prior. I agree with the Chief Complaint, ROS, and Past Histories independently gathered by the clinical logistics support and the remaining scribed note accurately describes my personal service to the patient. Medical Decision Making: Problems: Moderate: 2+ stable chronic illnesses Data: Unique test result(s) reviewed: 3+ Risk: Moderate: Drug management Medical Decision Making Level: 4 - Moderate Luis Enrique Landa MD The documentation for this note was completed by Courtney Rae MA acting as scribe for Luis Enrique Landa MD. April 22, 2024 2:18 PM. Courtney Rae MA documented in this encounter [facility] 04-16-2024 History of Presen t illness Narrative Patient's post-void bladder scan: 0 ML. Keyona Caballero MA Images from the original note were not included. [facility] NEW PATIENT CLINIC NOTE SERVICE DATE: April 16, 2024 NAME: Corinne Garcia CHIEF COMPLAINT: BPH and Organic Impotency HISTORY OF PRESENT ILLNESS: Corinne Garcia is a 59 year old male an new patient following up for BPH and Organic Impotency The patient reports no new LUTS He states that he is having some problems with his erections, discussed Metoprolol can make erection problems I don't recommend he stop it but to discuss with PCP since he has been monitoring BP and has has been much improved Offered PDE5i but he will wait for now LUTS: No New LUTS Other symptoms: ED - no Previous ED medications: no LABS: PSA (ng/mL) Date Value 10/20/2022 0.22 07/07/2020 0.23 PSA Screening (ng/mL) Date Value 04/10/2024 0.22 05/24/2016 0.26 MEDICATIONS: acetaminophen (TYLENOL EXTRA STRENGTH) 500 mg tablet Take 500 mg by mouth every 8 hours as needed for pain. metoprolol succinate ER (TOPROL XL) 25 mg 24 hr tablet take 1 tablet by mouth every day naproxen (NAPROSYN) 250 mg tablet Take 250 mg by mouth as needed. PAST MEDICAL HISTORY: PAST MEDICAL HISTORY Diagnosis Date BPH with obstruction/lower urinary tract symptoms Chest pain at rest Dysphagia Eosinophilic esophagitis Obesity REVIEW OF SYSTEMS: GENERAL: No fever, chills, weight loss, or fatigue. PHYSICAL EXAMINATION: Blood pressure 104/78, pulse 94, weight 128.4 kg (283 lb), SpO2 95%. GENERAL: WNL nutrition, no deformities, healthy appearing PROBLEM LIST REVIEW: Yes LABS: Results for orders placed or performed in visit on 04/16/24 UA DIP, URINE (POC) Result Value Ref Range GLUCOSE UA (POCT) Negative Negative mg/dL BILIRUBIN UA (POCT) Negative Negative KETONE UA (POCT) Negative Negative mg/dL SPECIFIC GRAVITY UA (POCT) >=1.030 1.005 - 1.030 HEMOGLOBIN/BLOOD UA (POCT) Negative Negative PH UA (POCT) 6.0 4.5 - 8.0 PROTEIN UA (POCT) Negative Negative mg/dL UROBILINOGEN UA (POCT) 1.0 Normal E.U./dL NITRITE UA (POCT) Negative Negative LEUKOCYTES UA (POCT) Negative Negative COLOR UA (POCT) Dark yellow CLARITY UA (POCT) Clear PROCEDURES: PVR: 0 ml ASSESSMENT/PLAN: 1. Benign prostatic hyperplasia, unspecified whether lower urinary tract symptoms present - ICD9: 600.00, ICD10: N40.0 (primary diagnosis) > PSA 0.22 > PVR - 0 ml > PROSTATE-SPECIFIC ANTIGEN DIAGNOSTIC 2. 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 Chronic Conditions: Stable and monitored with labs and follow-up visits 2. New Condition: with unknown prognosis; with follow-up visits > Testing Recommendations: Ordered today > 1 year Appt w/ ROSA Walker MT, PA-C with PSA prior ROSA Woodall MT, PA-C documented in this encounter [facility] 04-16-2024 Instructions Naomi Centeno PA-C - 04/16/2024 3:51 PM EDT > 1 year Appt w/ B. ROSA Centeno, ANDRZEJ DAI with PSA prior documented in this encounter [facility] 03-27-2024 Telephone encounter Note TERESA 11/29/22 NOV 04/16/24 Any labwork needed prior to appt. ? [facility] 03-27-2024 Miscellaneous Notes TERESA 11/29/22 NOV 04/16/24 Any labwork needed prior to appt. ? documented in this encounter [facility] 03-26-2024 Telephone encounter Note Pt notified labs have been ordered. Amaris Eason MA [facility] 03-26-2024 Miscellaneous Notes Pt notified labs have been ordered. Amaris Eason MA Labs ordered Luis Enrique Landa MD Pt scheduled for a Wellness visit on 04/22/24. No current labs ordered, last labs completed in 2021. Pended labs please review. Update pt via [employer] once orders have been placed. Pt to complete 1 week prior to visit. Amaris Eason MA documented in this encounter [facility] 03-26-2024 Telephone encounter Note Labs ordered Luis Enrique Landa MD [facility] 03-26-2024 Telephone encounter Note Pt scheduled for a Wellness visit on 04/22/24. No current labs ordered, last labs completed in 2021. Pended labs please review. Update pt via [employer] once orders have been placed. Pt to complete 1 week prior to visit. Amaris Eason MA [facility] 04-29-2023 History of Presen t illness Narrative Radiology Service Progress Note PATIENT NAME: Corinne Garcia DATE OF SERVICE: April 29, 2023 TIME: 9:02 AM PATIENT IDENTITY VERIFICATION COMPLETED USING TWO (2) IDENTIFIERS: Name and Date of confirmed by patient verbally. FALL SCREENING: Has the patient had 2 falls in the last year or 1 fall with injury or currently using an Ambulatory Assistive Device (Walker, Cane, Wheelchair, Crutches, etc.)? No PATIENT GENDER DATA: Male PATIENT RELEVANT IMPLANT DATA REVIEWED: Not Applicable RADIOLOGY DEPARTMENT: General X-ray: Exam(s) Completed: Upper Extremity X-Ray(s): Forearm, left PERIPHERAL IV DATA: Not applicable SIGNED BY: RT Millie(R) April 29, 2023 9:02 AM documented in this encounter [facility] 04-29-2023 History of Presen t illness Narrative Images from the original note were not included. Subjective Came in with complaints of left forearm pain. Patient says he fell yesterday and hit his arm on a handrail. Patient says it still uncomfortable but not extremely painful. Patient would like to know if he broke it. Patient denies any numbness tingling or loss of feeling. The history is provided by the patient. No foreign languages professor was used. Wrist/forearm Injury Review of Systems Constitutional: Negative. Skin: Negative. Objective Physical Exam Constitutional: Appearance: Normal appearance. Pulmonary: Effort: Pulmonary effort is normal. Musculoskeletal: Arms: Comments: Patient is tender in the area marked above. Patient does have mild amount of swelling possible deformity noted. Very superficial scratch also noted. Neurological: Mental Status: He is alert. PAST MEDICAL HISTORY Diagnosis Date BPH with obstruction/lower urinary tract symptoms Chest pain at rest Dysphagia Eosinophilic esophagitis Obesity PAST SURGICAL HISTORY Procedure Laterality Date COLONOSCOPY FLX DX W/COLLJ SPEC WHEN PFRMD 03/04/2015 Colonoscopy ESOPHAGOGASTRODUODENOSCOPY TRANSORAL DIAGNOSTIC 03/04/2015 EGD ESOPHAGOGASTRODUODENOSCOPY TRANSORAL DIAGNOSTIC 04/02/2018 EGD EXC CSTIC HYGROMA AX/CRV W/O DP NEUROVASC DSJ 1979' back of neck, in office. PAST SURGICAL HISTORY OF left knee repair, meni TONSILLECTOMY & ADENOIDECTOMY <AGE 10 ALLERGIES Penicillins MEDICATIONS metoprolol succinate ER (TOPROL XL) 25 mg 24 hr tablet Take 1 tablet by mouth once daily. atorvastatin (LIPITOR) 10 mg tablet Take 1 tablet by mouth once daily. naproxen (NAPROSYN) 250 mg tablet Take 250 mg by mouth as needed. FAMILY HISTORY Problem Relation Age of Onset Heart Father [place] in 40s; smoker Hypertension Father Diabetes Father Hypertension Mother Diabetes Mother Heart Paternal Grandfather Social History Tobacco Use Smoking status: Never Smokeless tobacco: Never Vaping Use Vaping Use: Never used Substance Use Topics Alcohol use: Yes Comment: occasionally Drug use: Not Currently Types: Marijuana Comment: In high school ASSESSMENT/PLAN: 1. Pain - ICD9: 780.96, ICD10: R52 - XR FOREARM GENERAL 2V AP/LAT LEFT * * * * Physician Interpretation * * * * PROCEDURE: Left forearm INDICATION: Pain .fell and hit his left forearm, pain and swelling mid lateral side TECHNIQUE: XR FOREARM 2V AP/LAT LT COMPARISON: None FINDINGS: No acute fracture or dislocation. Soft tissue swelling over the dorsum of the mid forearm. No soft tissue gas or foreign body. IMPRESSION IMPRESSION: No acute osseous abnormality Gas Torch Brazier: YESSI Transcribe Date/Time: Apr 29 2023 9:16A Dictated by : ROSENDO SAHU MD Was educated no breaks or fractures will rest ice alternate. Betty Banda APRN.DAVID documented in this encounter [facility] 12-07-2022 History of Presen t illness Narrative Images from the original note were not included. [facility] [place] NEW CONSULT PATIENT CLINIC NOTE SERVICE DATE: 12/07/2022 SERVICE TIME: 11:23 AM NAME: Corinne Garcia Consultation requested by Luis Enrique Landa MD for an opinion regarding BPH My final recommendations communicated back to the requesting physician by way of our shared Medical record. CHIEF COMPLAINT: BPH with LUTS HISTORY OF PRESENT ILLNESS: Corinne Garcia is a 57 year old male with PMH including CP, Plantar warts presenting for New Patient Consult BPH with LUTS The patient reports he feels he is having weaker stream and has concerns PSA's have been low Component Latest Ref Rng & Units 05/24/2016 07/07/2020 10/20/2022 PSA Screening 0.00 - 2.59 ng/mL 0.26 PSA <2.60 ng/mL 0.23 0.22 LUTS: DYSURIA: no URGENCY: Yes FREQUENCY:6 per day NOCTURIA: 3 per night STRAINING TO VOID: No EMPTIES COMPLETELY: No UTI: No GROSS HEMATURIA: no UA DIPSTICK POSITIVE ONLY: no Other symptoms: LABS: No results found for: TESTOST No results found for: TESTFREE PSA (ng/mL) Date Value 10/20/2022 0.22 07/07/2020 0.23 PSA Screening (ng/mL) Date Value 05/24/2016 0.26 Hematocrit (%) Date Value 11/30/2021 47.1 08/28/2012 47.3 PSA (ng/mL) Date Value 10/20/2022 0.22 07/07/2020 0.23 PSA Screening (ng/mL) Date Value 05/24/2016 0.26 Creatinine Date Value Ref Range Status 10/20/2022 0.92 0.73 - 1.22 mg/dL Final 11/30/2021 0.91 0.73 - 1.22 mg/dL Final 07/07/2020 0.91 0.73 - 1.22 mg/dL Final 05/19/2017 1.02 0.73 - 1.22 mg/dL Final MEDICATIONS: metoprolol succinate ER (TOPROL XL) 25 mg 24 hr tablet Take 1 tablet by mouth once daily. atorvastatin (LIPITOR) 10 mg tablet Take 1 tablet by mouth once daily. naproxen (NAPROSYN) 250 mg tablet Take 250 mg by mouth as needed. PAST MEDICAL HISTORY: PAST MEDICAL HISTORY Diagnosis Date BPH with obstruction/lower urinary tract symptoms Chest pain at rest Dysphagia Eosinophilic esophagitis Obesity PAST SURGICAL HISTORY: PAST SURGICAL HISTORY Procedure Laterality Date COLONOSCOPY FLX DX W/COLLJ SPEC WHEN PFRMD 03/04/2015 Colonoscopy ESOPHAGOGASTRODUODENOSCOPY TRANSORAL DIAGNOSTIC 03/04/2015 EGD ESOPHAGOGASTRODUODENOSCOPY TRANSORAL DIAGNOSTIC 04/02/2018 EGD EXC CSTIC HYGROMA AX/CRV W/O DP NEUROVASC DSJ 1979' back of neck, in office. PAST SURGICAL HISTORY OF left knee repair, meni TONSILLECTOMY & ADENOIDECTOMY <AGE 10 FAMILY HISTORY: FAMILY HISTORY Problem Relation Age of Onset Heart Father [place] in 40s; smoker Hypertension Father Diabetes Father Hypertension Mother Diabetes Mother Heart Paternal Grandfather SOCIAL HISTORY: Social Connections: Unknown Frequency of Communication with Friends and Family: Patient refused Frequency of Social Gatherings with Friends and Family: Patient refused Attends Sikhism Services: Patient refused Active Member of Clubs or Organizations: Patient refused Attends Club or Organization Meetings: Patient refused Marital Status: REVIEW OF SYSTEMS: GENERAL: No fever, chills, weight loss, or fatigue. ENMT: Negative CARDIOVASCULAR:NO CHEST PAIN, PALPITATIONS, ANKLE EDEMA RESPIRATORY: No chronic cough, wheezing, dyspnea, hemoptysis. GENITOURINARY: SEE HPI MUSCULOSKELETAL:NO CHRONIC BACK PAIN, ARTHRITIS, CHRONIC NECK PAIN SKIN: NO VARICOSE VEINS, RASH, ABNORMAL ITCHING HEME/LYMPH/IMMUNE:Negative for prolonged bleeding, bruising easily or swollen nodes NEUROLOGICAL: NO HEADACHES, NUMBNESS, SEIZURES, STROKE DIABETES: no All other systems reviewed and are negative PHYSICAL EXAMINATION: Blood pressure 138/90, pulse 88, temperature 36.2 C (97.2 F), temperature source Temporal, resp. rate 14, height 177.8 cm (5' 10), weight 128.8 kg (284 lb), SpO2 96 %. GENERAL: WNL nutrition, no deformities, healthy appearing NEURO: Awake, alert and oriented x 3 and Normal gait PSYCH: No signs of depression, anxiety, or agitation ENMT (Ear, Nose, Mouth, Throat): No masses, adenopathy, icterus. Thyroid nonpalpable RESP: NL effort, no retractions or purse-lip breathing. CV: No extremity swelling, varices, edema, pallor, erythema GASTROINTESTINAL: Soft, nontender, nondistended, no masses. HERNIAS: None SKIN: No rash, lesions No palpable lymphadenopathy MUSCULOSKELETAL: Extremities normal. No deformities, edema, clubbing or skin discoloration. GENITOURINARY: MALE EXAM: Epididymis & testes: normal size, position, without masses Urethra & meatus: normal size & position w/o lesion or discharge PROBLEM LIST REVIEW: Yes LABS: Results for orders placed or performed in visit on 11/29/22 UA DIP, URINE (POC) Result Value Ref Range GLUCOSE UA (POCT) Negative Negative mg/dL BILIRUBIN UA (POCT) Negative Negative KETONE UA (POCT) Negative Negative mg/dL SPECIFIC GRAVITY UA (POCT) 1.025 1.005 - 1.030 HEMOGLOBIN/BLOOD UA (POCT) Negative Negative PH UA (POCT) 6.0 4.5 - 8.0 PROTEIN UA (POCT) Negative Negative mg/dL UROBILINOGEN UA (POCT) 0.2 Normal E.U./dL NITRITE UA (POCT) Negative Negative LEUKOCYTES UA (POCT) Negative Negative COLOR UA (POCT) Yellow CLARITY UA (POCT) Clear PROCEDURES: PVR: 0 ml IMAGIN IMPRESSION/PLAN: 57 year old male with 1. Benign prostatic hyperplasia, unspecified whether lower urinary tract symptoms present - ICD9: 600.00, ICD10: N40.0 Follow PSA annually I spent a total of 40 minutes on the date of the service which included preparing to see the patient, face to face patient care, completing clinical documentation, obtaining and/or reviewing separately obtained history, performing a medically appropriate examination, counseling and educating the patient/family/caregiver, ordering medications, tests, or procedures, and care coordination. ROSA Woodall, MT, ANDRZEJ Verified name and date of . CC Post Void Residual HPI: Corinne Garcia is a 57 year old male. The patient is here now for an appointment with ROSA Woodall MT, PA-COV. Procedure: Explained procedure to patient and verbalizes understanding. Performed a PVR. Patient urinated and instructed to empty bladder as much as possible just prior to having PVR done using bladder ultrasound scanner. Results of scan: 0 mL The patient tolerated the procedure well. Plan: Appointment with Naomi. documented in this encounter [facility] 11-29-2022 Instructions Naomi Centeno PA-C - 11/29/2022 5:07 PM EST > 1 year Appt w/ B. ROSA Centeno MT, PA-C with PSA prior documented in this encounter [facility] 11-18-2022 Instructions Amaris Eason Ma - 11/18/2022 3:16 PM EST Urology referral has been placed. You can call [phone] to schedule an appointment with MARCELLA Cruz. He's located at our [facility]. documented in this encounter [facility] 11-18-2022 History of Presen t illness Narrative Chief Complaint Patient presents with: Wellness HPI Corinne Garcia is a 57 year old male who presents here today for a Wellness exam. Here today for a Wellness Exam. Last completed in 2019. No bowel, Gi, or urinary issues. Wants to discuss referral to Urology due to weak stream. Occasionally gets up at night to urinate, becoming more noticeable. Does have questions about low PSA and cancer risk. HTN: Taking Toprol xl 25 mg daily, was started by Cardiology Dr. Reyna, due to his FHx of [place]. Father at a young age. Checks BP at home, with BP varying from 110/60 - 130/80's. Tends to have elevated reading is Doctor's office. Denies any chest pains, dizziness, or SOB. Reports episode of syncope but feels this was self induced. Was seen in [place] [facility] and had normal work up with imaging. Lipid/Glucose: Admits to not watching diet well, likes carbs and drinking diet Mountain Dew. Admits to drinking 7 cans daily roughly. During summer months up to 12 per day. Has tried to cut down. Does drink a lot of water, but not enough. Loves salads and vegetables. Walks 8-10K steps daily 5 days a week.Taking Lipitor 10 mg daily, tolerating well. Tremor - Right hand tremor. Was previously on medication but it did not help him. HM - Declined Flu shot. Declined Covid vaccine. Declined depression. Past medical history, appointments, medications, allergies reviewed. Previous Medical History PAST MEDICAL HISTORY Diagnosis Date Chest pain at rest Dysphagia Eosinophilic esophagitis Obesity Previous Surgical History PAST SURGICAL HISTORY Procedure Laterality Date COLONOSCOPY FLX DX W/COLLJ SPEC WHEN PFRMD 03/04/2015 Colonoscopy ESOPHAGOGASTRODUODENOSCOPY TRANSORAL DIAGNOSTIC 03/04/2015 EGD ESOPHAGOGASTRODUODENOSCOPY TRANSORAL DIAGNOSTIC 04/02/2018 EGD EXC CSTIC HYGROMA AX/CRV W/O DP NEUROVASC DSJ 1979' back of neck, in office. PAST SURGICAL HISTORY OF left knee repair, meni TONSILLECTOMY & ADENOIDECTOMY <AGE 10 Family History FAMILY HISTORY Problem Relation Age of Onset Heart Father [place] in 40s; smoker Hypertension Father Diabetes Father Hypertension Mother Diabetes Mother Heart Paternal Grandfather Patient Allergies ALLERGIES Allergen Reactions Penicillins Hives Current Medications Current Outpatient Medications on File Prior to Visit Medication Sig atorvastatin (LIPITOR) 10 mg tablet Take 1 tablet by mouth once daily. metoprolol succinate ER (TOPROL XL) 25 mg 24 hr tablet Take 1 tablet by mouth once daily. primidone (MYSOLINE) 50 mg tablet Take 0.5 tablets by mouth daily at bedtime. naproxen (NAPROSYN) 250 mg tablet Take 250 mg by mouth as needed. No current facility-administered medications on file prior to visit. Social History Social History Tobacco Use Smoking status: Never Smokeless tobacco: Never Vaping Use Vaping Use: Never used Substance Use Topics Alcohol use: Yes Comment: occasional Drug use: No EXAM: BP 126/82 (BP Site: Left Arm, BP Position: Sitting, BP Cuff Size: Large Adult) Pulse 76 Resp 16 Ht 180.3 cm (5' 11) Wt 128.1 kg (282 lb 6.4 oz) BMI 39.39 kg/m General Appearance: Well appearing, alert, in no acute distress, well-hydrated, well nourished. and Obese. Lungs: Lungs clear to auscultation. No wheezing, rhonchi, rales.. Heart: RRR without murmur, gallop, or rubs. No ectopy. Health Maintenance List COVID-19 VACCINE(3 - Booster for Pfizer series) due on 04/16/2021 - declined DEPRESSION ASSESSMENT Never done- Declined INFLUENZA(1) Never done - Declined. COLORECTAL CANCER SCREENING due on 04/02/2023 DTAP,TDAP,TD(2 - Td or Tdap) due on 12/17/2024 DIABETES SCREEN due on 10/20/2025 LIPID SCREEN due on 10/20/2027 PROSTATE CANCER SCREENING DISCUSSION due on 10/20/2027 HEPATITIS C SCREENING Completed HIV SCREENING Completed SHINGRIX VACCINE Completed Data reviewed Appointment on 10/20/2022 Component Date Value Protein, Total 10/20/2022 6.6 Albumin 10/20/2022 4.2 Calcium, Total 10/20/2022 8.7 Bilirubin, Total 10/20/2022 0.7 Alkaline Phosphatase 10/20/2022 98 AST 10/20/2022 16 ALT 10/20/2022 21 Glucose 10/20/2022 108 (A) BUN 10/20/2022 12 Creatinine 10/20/2022 0.92 Sodium 10/20/2022 137 Potassium 10/20/2022 4.2 Chloride 10/20/2022 105 CO2 10/20/2022 24 Anion Gap 10/20/2022 8 (A) Estimated Glomerular Bi* 10/20/2022 96 Cholesterol, Total 10/20/2022 148 Triglyceride 10/20/2022 45 HDL Cholesterol 10/20/2022 39 (A) Non HDL Cholesterol 10/20/2022 109 Fasting Time 10/20/2022 12 VLDL Cholesterol 10/20/2022 9 TC:HDL Ratio 10/20/2022 3.79 LDL Cholesterol 10/20/2022 100 (A) LDL:HDL Ratio 10/20/2022 2.56 (A) PSA 10/20/2022 0.22 ASSESSMENT/PLAN: 1. Wellness examination - ICD9: V70.0, ICD10: Z00.00 (primary diagnosis) - Counseled on healthy diet and regular exercise - Discussed need for and benefit of weight loss. BMI 39.39 kg/(m^2) - Follow up for annual exam in one year 2. Mixed hyperlipidemia - ICD9: 272.2, ICD10: E78.2 - good control - Continue current medication. - Encouraged following a low fat, low cholesterol diet. - Discussed the benefits of regular aerobic exercise and weight loss. - METOPROLOL SUCCINATE ER 25 MG TABLET,EXTENDED RELEASE 24 HR - ATORVASTATIN 10 MG TABLET 3. Elevated glucose - ICD9: 790.29, ICD10: R73.09 - Work on Lifestyle changes - Reducing Pop - Exercise. 4. Essential tremor - ICD9: 333.1, ICD10: G25.0 - Monitor 5. BPH with obstruction/lower urinary tract symptoms - ICD9: 600.01, 599.69, ICD10: N40.1, N13.8 - Consult Urology - Referral to Naomi Centeno 6. Weak urinary stream - ICD9: 788.62, ICD10: R39.12 - Consult Urology. Annual Follow up. I agree with the Chief Complaint, ROS, and Past Histories independently gathered by the clinical logistics support and the remaining scribed note accurately describes my personal service to the patient. Luis Enrique Landa MD The documentation for this note was completed by Amaris Eason Ma acting as scribe for Luis Enrique Landa MD. November 18, 2022 3:13 PM. Amaris Eason Ma documented in this encounter [facility] Evaluation note Diagnosis Wellness examination- Primary Mixed hyperlipidemia Elevated glucose Other abnormal glucose Essential tremor Essential and other specified forms of tremor BPH with obstruction/lower urinary tract symptoms Hypertrophy of prostate with urinary obstruction and other lower urinary tract symptoms (LUTS) Weak urinary stream Slowing of urinary stream [facility] Diagnosis Benign prostatic hyperplasia, unspecified whether lower urinary tract symptoms present- Primary [facility] Diagnosis Pain- Primary Generalized pain documented in this encounter [facility] note* Diagnosis Wellness examination- Primary Mixed hyperlipidemia Elevated glucose Other abnormal glucose BPH with obstruction/lower urinary tract symptoms Hypertrophy of prostate with urinary obstruction and other lower urinary tract symptoms (LUTS) Screening for prostate cancer Special screening for malignant neoplasm of prostate documented in this encounter [facility] note* Diagnosis Benign prostatic hyperplasia without lower urinary tract symptoms- Primary Impotence of organic origin documented in this encounter [facility] note* Diagnosis Primary hypertension- Primary Unspecified essential hypertension Mixed hyperlipidemia Screening for colon cancer Special screening for malignant neoplasms, colon Eosinophilic esophagitis Class 3 severe obesity due to excess calories without serious comorbidity with body mass index (BMI) of 40.0 to 44.9 in adult (HCC) documented in this encounter [facility] note* Diagnosis History of colonic polyps- Primary Personal history of colonic polyps Eosinophilic esophagitis Dysphagia, unspecified type Screening for colon cancer Special screening for malignant neoplasms, colon documented in this encounter [facility] note* Diagnosis Pain Generalized pain documented in this encounter [facility] note* Diagnosis Left arm pain- Primary Pain in limb documented in this encounter [facility] note* Diagnosis Left arm pain Pain in limb documented in this encounter [facility] note* Diagnosis Eosinophilic esophagitis Dysphagia, unspecified type Screening for colon cancer Special screening for malignant neoplasms, colon Special screening for malignant neoplasms, colon documented in this encounter [facility] note* Diagnosis Benign prostatic hyperplasia without lower urinary tract symptoms- Primary Screening for genitourinary condition Screening for other and unspecified genitourinary condition Impotence of organic origin documented in this encounter [facility] for referral (narrative)* Diagnostic Procedure Only (Urgent) - Closed Specialty Diagnoses / Procedures Referred By Contyasmany t Referred To Contact XR IMAGING Diagnoses Pain Procedures XR FOREARM GENERAL 2V AP/LAT LEFT RADEX FOREARM 2 VIEWS Betty Banda APRN.CNP [address] [place] [address] Xr Imaging Referral ID Status Reason Start Date Expiration Date V isits Requested Visits Authorized [id number] Closed Auto-Generate d Referral 04/29/2023 05/28/2024 1 1 [facility] for referral (narrative)* Outpatient Procedure (Routine) - Pending Review Specialty Diagnoses / Procedures Referred By Contac t Referred To Contact [facility] Diagnoses Screening for colon cancer Procedures COLONOSCOPY SCREENING COLONOSCOPY FLX DX W/COLLJ SPEC WHEN PFBasia Guaman APRN.SENIOR PRODUCT DEVELOPMENT SCIENTIST [address] [place] [address] [facility] [address] [address] Referral ID Status Reason Start Date Expiration Date Visits Requested Visits Authorized [id number] Pending Review Auto-Generat ed Referral 05/13/2024 05/13/2025 1 1 * Outpatient Procedure (Routine) - Pending Review Specialty Diagnoses / Procedures Referred By Contac t Referred To Contact [facility] Diagnoses Eosinophilic esophagitis Dysphagia, unspecified type Procedures EGD DIAGNOSTIC ESOPHAGOGASTRODUODENOSC OPY TRANSORAL DIAGNOSTIC Basia Clement APRN.SENIOR PRODUCT DEVELOPMENT SCIENTIST [address] [place] [address] [facility] [address] [address] Referral ID Status Reason Start Date Expiration Date Visits Requested Visits Authorized [id number] Pending Review Auto-Generat ed Referral 05/13/2024 05/13/2025 1 1 [facility] for referral (narrative)* Diagnostic Procedure Only (Urgent) - Closed Specialty Diagnoses / Procedures Referred By Contac t Referred To Contact XR IMAGING Diagnoses Pain Procedures XR FOREARM GENERAL 2V AP/LAT LEFT RADEX FOREARM 2 VIEWS Betty Banda APRN.SENIOR PRODUCT DEVELOPMENT SCIENTIST [address] [place] [address] [place] [address] Referral ID Status Reason Start Date Expiration Date V isits Requested Visits Authorized [id number] Closed Auto-Generate d Referral 04/29/2023 05/28/2024 1 1 [facility] for referral (narrative)* Diagnostic Procedure Only (Routine) - Closed Specialty Diagnoses / Procedures Referred By Contac t Referred To Contact MR IMAGING Diagnoses Left arm pain Procedures MRI LOWER ARM WO IVCON LEFT MRI UPPER EXTREMITY OTH THAN JT W/O CONTR Luis Enrique Obregon MD [address] [place] [address] [place] [address] Referral ID Status Reason Start Date Expiration Date V isits Requested Visits Authorized [id number] Closed Auto-Generate d Referral 11/21/2024 11/12/2025 1 1 [facility] for visit Narrative* Diagnostic Procedure Only (Urgent) - Closed Specialty Diagnoses / Procedures Referred By Contac t Referred To Contact XR IMAGING Diagnoses Pain Procedures XR FOREARM GENERAL 2V AP/LAT LEFT RADEX FOREARM 2 VIEWS Betty Banda, CORKY.SENIOR PRODUCT DEVELOPMENT SCIENTIST [address] [place] [address] [place] [address] Referral ID Status Reason Start Date Expiration Date V isits Requested Visits Authorized [id number] Closed Auto-Generate d Referral 04/29/2023 05/28/2024 1 1 [facility] for visit Narrative* Diagnostic Procedure Only (Routine) - Closed Specialty Diagnoses / Procedures Referred By Contac t Referred To Contact MR IMAGING Diagnoses Left arm pain Procedures MRI LOWER ARM WO IVCON LEFT MRI UPPER EXTREMITY OTH THAN JT W/O CONTR Luis Enrique Obregon MD [address] [place] [address] [place] [address] Referral ID Status Reason Start Date Expiration Date V isits Requested Visits Authorized [id number] Closed Auto-Generate d Referral 11/21/2024 11/12/2025 1 1 [facility] for visit Narrative* Outpatient Procedure (Routine) - Closed Specialty Diagnoses / Procedures Referred By Contac t Referred To Contact Diagnoses Screening for colon cancer Procedures COLONOSCOPY SCREENING COLONOSCOPY FLX DX W/COLLJ SPEC WHEN Basia Guerrero APRN.SENIOR PRODUCT DEVELOPMENT SCIENTIST [address] [place] [address] Phone: tel: fax: [facility] [address] [place] [address] Referral ID Status Reason Start Date Expiration Date V isits Requested Visits Authorized [id number] Closed Auto-Generate d Referral 10/18/2024 05/13/2025 1 1 [facility] Reason for Referral Specialty Diagnoses / Procedures Referred By Contac t Referred To Contact Urology Diagnoses BPH with obstruction/lower urinary tract symptoms Weak urinary stream Procedures CONSULT TO UROLOGY OFFICE/OUTPATIENT [facility] 60-74 MINUTES Luis Enrique Landa MD [address] [place] [address] Referral ID Status Reason Start Date Expiration Date Visits Requested Visits Authorized [id number] Pending Review PCP Requested Referral 11/18/2022 11/18/2023 1 1 Specialty Diagnoses / Procedures Referred By Contac t Referred To Contact General Surgery Diagnoses Screening for colon cancer Eosinophilic esophagitis Procedures CONSULT TO GENERAL SURGERY OFFICE/OUTPATIENT [facility] 60 MINUTES Luis Enrique Landa MD [address] [place] [address] Referral ID Status Reason Start Date Expiration Date Visits Requested Visits Authorized [id number] Authorized PCP Requested Referral 04/22/2024 04/22/2025 1 1 Specialty Diagnoses / Procedures Referred By Contac t Referred To Contact MR IMAGING Diagnoses Left arm pain Procedures MRI LOWER ARM WO IVCON LEFT MRI UPPER EXTREMITY OTH THAN JT W/O CONTR MATRL Luis Enrique Landa MD [address] [place] [address] [place] [address] Referral ID Status Reason Start Date Expiration Date Visits Requested Visits Authorized [id number] Pending Review Auto-Generat ed Referral 12/11/2025 1 1 Summary Purpose Family History No Family History Records FoundNo Family History Records FoundNo Family History Records FoundNo Family History Records FoundNo Family History Records Found Advance Directives No Advanced Directives Records FoundNo Advanced Directives Records FoundNo Advanced Directives Records FoundNo Advanced Directives Records FoundNo Advanced Directives Records Found Additional Source Comments Source Comments (unrecognize d section and content) In the event this informatio n is protected by the Federal Confidentiality of Alcohol and Drug Abuse Patient Records regulations: The Federal rules restrict any use of the information to criminally investigate or prosecute any alcohol or drug abuse patient.[facility] the event this information is protected by the Federal Confidentiality of Alcohol and Drug Abuse Patient Records regulations: The Federal rules restrict any use of the information to criminally investigate or prosecute any alcohol or drug abuse patient.[facility] the event this information is protected by the Federal Confidentiality of Alcohol and Drug Abuse Patient Records regulations: The Federal rules restrict any use of the information to criminally investigate or prosecute any alcohol or drug abuse patient.[facility] the event this information is protected by the Federal Confidentiality of Alcohol and Drug Abuse Patient Records regulations: The Federal rules restrict any use of the information to criminally investigate or prosecute any alcohol or drug abuse patient.[facility] the event this information is protected by the Federal Confidentiality of Alcohol and Drug Abuse Patient Records regulations: The Federal rules restrict any use of the information to criminally investigate or prosecute any alcohol or drug abuse patient.[facility] the event this information is protected by the Federal Confidentiality of Alcohol and Drug Abuse Patient Records regulations: The Federal rules restrict any use of the information to criminally investigate or prosecute any alcohol or drug abuse patient.[facility] the event this information is protected by the Federal Confidentiality of Alcohol and Drug Abuse Patient Records regulations: The Federal rules restrict any use of the information to criminally investigate or prosecute any alcohol or drug abuse patient.[facility] the event this information is protected by the Federal Confidentiality of Alcohol and Drug Abuse Patient Records regulations: The Federal rules restrict any use of the information to criminally investigate or prosecute any alcohol or drug abuse patient.[facility] the event this information is protected by the Federal Confidentiality of Alcohol and Drug Abuse Patient Records regulations: The Federal rules restrict any use of the information to criminally investigate or prosecute any alcohol or drug abuse patient.[facility] the event this information is protected by the Federal Confidentiality of Alcohol and Drug Abuse Patient Records regulations: The Federal rules restrict any use of the information to criminally investigate or prosecute any alcohol or drug abuse patient.[facility] the event this information is protected by the Federal Confidentiality of Alcohol and Drug Abuse Patient Records regulations: The Federal rules restrict any use of the information to criminally investigate or prosecute any alcohol or drug abuse patient.[facility] the event this information is protected by the Federal Confidentiality of Alcohol and Drug Abuse Patient Records regulations: The Federal rules restrict any use of the information to criminally investigate or prosecute any alcohol or drug abuse patient.[facility] the event this information is protected by the Federal Confidentiality of Alcohol and Drug Abuse Patient Records regulations: The Federal rules restrict any use of the information to criminally investigate or prosecute any alcohol or drug abuse patient.[facility] the event this information is protected by the Federal Confidentiality of Alcohol and Drug Abuse Patient Records regulations: The Federal rules restrict any use of the information to criminally investigate or prosecute any alcohol or drug abuse patient.[facility] Hospital[facility] the event this information is protected by the Federal Confidentiality of Alcohol and Drug Abuse Patient Records regulations: The Federal rules restrict any use of the information to criminally investigate or prosecute any alcohol or drug abuse patient.[facility] Hospital[facility] the event this information is protected by the Federal Confidentiality of Alcohol and Drug Abuse Patient Records regulations: The Federal rules restrict any use of the information to criminally investigate or prosecute any alcohol or drug abuse patient.[facility] HospitalIn the event this information is protected by the Federal Confidentiality of Alcohol and Drug Abuse Patient Records regulations: The Federal rules restrict any use of the information to criminally investigate or prosecute any alcohol or drug abuse patient.[facility] Reason for Visit (unrecogniz ed section and content) Reason Comments Wellness Reason Comments Consult Benign Prostatic Hypertrophy Specialty Diagnoses / Procedures Referred By Contac t Referred To Contact Urology Diagnoses BPH with obstruction/lower urinary tract symptoms Weak urinary stream Procedures CONSULT TO UROLOGY OFFICE/OUTPATIENT [facility] 60-74 MINUTES Luis Enrique Landa MD [address] [place] [address] Referral ID Status Reason Start Date Expiration Date Visits Requested Visits Authorized [id number] Pending Review PCP Requested Referral 11/18/2022 11/18/2023 1 1 Reason Comments Wrist/forearm Injury left forearm pain x 1 day after fall Reason Comments Follow Up Sexual Problem Reason Comments Physical Reason Comments Consult Colonoscopy consulta tion. Specialty Diagnoses / Procedures Referred By Contyasmany t Referred To Contact General Surgery Diagnoses Screening for colon cancer Eosinophilic esophagitis Procedures CONSULT TO GENERAL SURGERY OFFICE/OUTPATIENT [facility] MDM 60 MINUTES Luis Enrique Landa MD [address] [place] [address] Referral ID Status Reason Start Date Expiration Date V isits Requested Visits Authorized [id number] Closed PCP Requested Referral 04/22/2024 04/22/2025 1 1 Reason Comments Hand Pain Left hand Reason Comments Results Reason Comments Follow Up Benign Prostatic Hypertrophy Impotence Care Teams (unrecognized sec tion and content) Regional Project Manager Relationship Specialty Start Date End Date Luis Enrique Landa MD [address] [place] [address] PCP - General Family Medicine 06/03/11 Regional Project Manager Relationship Specialty Start Date End Date Luis Enrique Landa MD [address] [place] [address] PCP - General Family Medicine 06/03/11 Regional Project Manager Relationship Specialty Start Date End Date Luis Enrique Landa MD [address] [place] [address] PCP - General Family Medicine 06/03/11 Regional Project Manager Relationship Specialty Start Date End Date Luis Enrique Landa MD [address] [place] [address] PCP - General Family Medicine 06/03/11 Regional Project Manager Relationship Specialty Start Date End Date Luis Enrique Landa MD [address] [place] [address] PCP - General Family Medicine 06/03/11 Regional Project Manager Relationship Specialty Start Date End Date Luis Enrique Landa MD [address] [place] [address] PCP - General Family Medicine 06/03/11 Regional Project Manager Relationship Specialty Start Date End Date Luis Enrique Landa MD [address] [place] [address] PCP - General Family Medicine 06/03/11 Regional Project Manager Relationship Specialty Start Date End Date Luis Enrique Landa MD [address] [place] [address] PCP - General Family Medicine 06/03/11 Regional Project Manager Relationship Specialty Start Date End Date Luis Enrique Landa MD [address] [place] [address] PCP - General Family Medicine 06/03/11 Regional Project Manager Relationship Specialty Start Date End Date Luis Enrique Landa MD [address] [place] [address] PCP - General Family Medicine 06/03/11 Regional Project Manager Relationship Specialty Start Date End Date Luis Enrique Landa MD [address] [place] [address] PCP - General Family Medicine 06/03/11 Bety Frausto APRN.SENIOR PRODUCT DEVELOPMENT SCIENTIST [address] [place] [address] Housing Management Officer Family Medicine 10/20/24 Baldemar Cotter APRN.SENIOR PRODUCT DEVELOPMENT SCIENTIST [address] [place] [address] Housing Management Officer Family Medicine 10/29/24 Regional Project Manager Relationship Specialty Start Date End Date Luis Enrique Landa MD [address] [place] [address] PCP - General Family Medicine 06/03/11 Bety Frausto APRN.SENIOR PRODUCT DEVELOPMENT SCIENTIST [address] [facility] [place] [address] Housing Management Officer Family Medicine 10/20/24 Baldemar Cotter APRN.SENIOR PRODUCT DEVELOPMENT SCIENTIST [address] [place] [address] Housing Management Officer Family Medicine 10/29/24 Regional Project Manager Relationship Specialty Start Date End Date Luis Enrique Landa MD [address] [place] [place] [address] PCP - General Family Medicine 06/03/11 Bety Frausto APRN.SENIOR PRODUCT DEVELOPMENT SCIENTIST [address] [place] [address] Housing Management Officer Family Medicine 10/20/24 Baldemar Cotter APRN.SENIOR PRODUCT DEVELOPMENT SCIENTIST [address] [place] [address] Housing Management Officer Family Medicine 10/29/24 Regional Project Manager Relationship Specialty Start Date End Date Luis Enrique Landa MD [address] [place] [address] PCP - General Family Medicine 06/03/11 Bety Frausto APRN.SENIOR PRODUCT DEVELOPMENT SCIENTIST [address] [place] [address] Housing Management Officer Family Medicine 10/20/24 Baldemar Cotter APRN.SENIOR PRODUCT DEVELOPMENT SCIENTIST [address] [place] [address] Housing Management Officer Family Medicine 10/29/24 Regional Project Manager Relationship Specialty Start Date End Date Luis Enrique Landa MD [address] [place] [address] PCP - General Family Medicine 06/03/11 Btey Frausto APRN.SENIOR PRODUCT DEVELOPMENT SCIENTIST [address] [place] [address] Housing Management Officer Family Medicine 10/20/24 Baldemar Cotter APRN.SENIOR PRODUCT DEVELOPMENT SCIENTIST [address] [place], [place] [address] [facility] 10/29/24 Regional Project Manager Relationship Specialty Start Date End Date Luis Enrique Landa MD [address] [place] [address] PCP - General Family Medicine 06/03/11 Baldemar Cotter APRN.SENIOR PRODUCT DEVELOPMENT SCIENTIST [address] [place], [place] [id number] [facility] 10/29/24 (unrecognized sect ion and content) No Status Records FoundNo Status Records FoundNo Status Records FoundNo Status Records FoundNo Status Records Found INFORMATION SOURCE (unrecogn ized section and content) DATE CREATED AUTHOR 05/07/2025 [facility] DATE CREATED AUTHOR AUTHOR'S ORGANIZ ATION 05/15/2025 [facility] DATE CREATED AUTHOR AUTHOR'S ORGANIZ ATION 05/16/2025 [facility] DATE CREATED AUTHOR AUTHOR'S ORGANIZ ATION 05/18/2025 [facility] DATE CREATED AUTHOR AUTHOR'S ORGANIZ ATION 05/18/2025 [facility] FOR RECORDS PERTAINING TO PATIENTS WHO ARE OR HAVE BEEN ENROLLED IN A CHEMICAL DEPENDENCY/SUBSTANCEABUSE PROGRAM, SOME INFORMATION MAY BE OMITTED. This clinical summary was aggregated from multiple sources. Caution should be exercised in using it in the provision of clinical care. This summary normalizes information from multiple sources, and as a consequence, information in this document may materially change the coding, format and clinical context of patient data. In addition, data may be omitted in some cases. CLINICAL DECISIONS SHOULD BE BASED ON THE PRIMARY CLINICAL RECORDS. [employer] provides no warranty or guarantee of the accuracy or completeness of information in this document.
[2025-05-22] MEDS: Lactated Ringers 1,000 ML 15 ML IV (06:33)
--- NOTE | 2025-05-22 06:41 | PCM.PRE.AN2 ---
ASA Classification* ASA Classification ASA Classification: 3 Assessment & Plan Anesthesia* Anesthesia Assessment Anesthesia Assessment: Discussed sedation and/or anesthesia options, risks, benefits, and alternatives with patient/parents/legal guardian/POA. Questions invited. The patient/parents/legal guardian/POA seems to understand and agrees to proceed with anesthesia plan. Reviewed the physical assessment, medical history, allergy history and patient home medications list prior to surgery/procedure/anesthetic and documented any changes. Performed airway and anesthesia risk assessments. Anesthesia Type Anesthesia Type: General and Block (Patient is consented for femoral pain block.) History Source History Obtained from:: Patient and Chart Anesthesia Focused Assessment* Temperature: 97.3 F Pulse Rate: 75 Blood Pressure: 116/80 Respiratory Rate: 16 Pulse Ox: 96 Oxygen Delivery Method: Room Air Airway Assessment Mouth opens: >3 cm Mallampati Score: II Teeth Condition: Caps/Crowns (Patient several crowns. They are all tight.) Neck Range of motion (ROM): Limited ROM (Slight Decrease) Labs Anesthesia Preop lab: CBC WBC 5.9 K/mm3 (4.4-11.0) 05/14/25 08:05/14/25 RBC 4.72 M/mm3 (4.6-6.2) 05/14/25 08:32 05/14/25 Hgb 14.0 g/dL (13.0-16.5) 05/14/25 08:32 05/14/25 Hct 42.0 % (40-54) 05/14/25 08:32 05/14/25 Plt Count 319 K/mm3 (150-450) 05/14/25 08:32 05/14/25 CHEMISTRY Potassium 4.5 mmol/L (3.3-5.1) 05/14/25 08:32 05/14/25 Sodium 142 mmol/L (133-145) 05/14/25 08:32 05/14/25 BUN 10 mg/dL (4-19) 05/14/25 08:32 05/14/25 Creatinine 0.81 mg/dL (0.70-1.20) 05/14/25 08:32 05/14/25 Glucose 112 mg/dL (70-99) H 05/14/25 08:32 05/14/25 COAG Pre-Assessment Diagnosis/Proposed Procedure Planned Operative Procedure(s): (L) LEFT QUADRICEPS TENDON REPAIR Anesthesia History Anesthesia History - learning officer: Anesthesia History - learning officer Hx Hospitalization No 05/12/25 15:12 Any Problems With Anesthesia No 05/12/25 15:12 Cholinesterase deficiency No 05/12/25 15:12 You/Your Family Experience No 05/12/25 15:12 fever (hyperthermia) with Relationship Recent Exposure to Contagious No 05/22/25 06:19 Disease Does patient have nerve No 05/12/25 15:12 stimulator Patient instructed to have device shut off --Does patient have Pacemaker No 05/22/25 06:19 or ICD? When Was Last Pacemaker Check QUESTION #4 FULL TEXT: You/Your Family Experience fever (hyperthermia) with Anesthesia Last Oral Intake Last Oral intake: Last Oral Intake NPO since 00:15 05/22/25 06:19 Meds taken in AM with sips of water? Meds patient instructed to take am of surgery PONV PONV - learning officer: PONV - learning officer Female No 05/12/25 15:12 HX of Motion Sickness No 05/12/25 15:12 HX of N/V After Surgery No 05/12/25 15:12 Non-Smoker Yes 05/12/25 15:12 Duration of Surgery greater Yes 05/12/25 15:12 than 60 minutes Number of Risk Factors 2 05/12/25 15:12 PONV Score Moderate Risk 05/12/25 15:12 Height & Weight Height & Weight: Anesthesia: Height & Weight Height 5 ft 10 in 05/22/25 06:19 Weight: 125.191 kg 05/22/25 06:19 Body Mass Index (BMI) 39.6 05/22/25 06:19 Respiratory Assessment Respiratory Assessment - learning officer: Respiratory Tract Infection Hx - learning officer Hx Respiratory Tract Infection No 05/12/25 15:12 STOP Sleep Apnea STOP Sleep Apnea - learning officer: STOP Sleep Apnea - learning officer Hx Hypertension Yes: CONTROLLED ON MED 05/12/25 15:12 Hx Sleep Apnea No 05/12/25 15:12 CPAP BIPAP Do you snore loudly (louder No 05/12/25 15:12 than talking or can be heard Do you often feel tired/ No 05/12/25 15:12 fatigued/ sleepy during daytime? Has anyone observed you stop No 05/12/25 15:12 breathing during sleep? STOP Results Negative 05/12/25 15:12 QUESTION #5 FULL TEXT : Do you snore loudly (louder than talking or can be heard through closed doors)? 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 Specify any problems Hx of Preganancy in last 3 N/A 05/12/25 15:12 Months Nurse Filling Out Transfusion VCHRISTIN 05/12/25 15:12 & Questions: Date: 05/12/25 05/12/25 15:12 Time: 15:14 05/12/25 15:12 Patient unable to answer at this time (ie. confused, unrespo /Reproduction History /Reproductive History - learning officer: /Reproductive Hx- learning officer Hx Now No 05/12/25 15:12 Gestational Age (in weeks): EDC: Hx Hx Para Hx Section SAB No 05/12/25 15:12 Active Medications Active Medications: Current Medications Generic Name Dose Route Start Last Admin Trade Name Freq PRN Reason Stop Dose Admin Cefazolin Sodium 3 gm/ Sodium 115 mls @ 200 mls/hr 05/22/25 07:30 Chloride IV 05/22/25 08:04 INTRAOP ONE Lactated Ringer's 1,000 mls @ 15 mls/hr 05/22/25 06:00 05/22/25 06:33 IV 15 mls/hr .Q48H ZORA Administration PFSH Medical History Wears glasses Anxiety Arthritis Difficulty swallowing Non-smoker History of edema Hypertension History of echocardiogram History of stress test Cardiology follow-up encounter Mixed hyperlipidemia Obesity Home Medications ?Medication ?Instructions ?Recorded ?Last Taken ?Type acetaminophen 325 mg tablet 325 mg PO Q6H PRN pain 02/12/20 Unknown History (Tylenol) ibuprofen 200 mg capsule 200 mg PO Q6H PRN pain 02/12/20 Unknown History naproxen sodium 220 mg capsule 220 mg PO BID PRN pain 02/12/20 Unknown History (Aleve) metoprolol succinate 25 mg 25 mg PO DAILY #90 tabs 06/15/22 05/21/25 19:00 Rx tablet,extended release 24 hr (Toprol XL) Allergy/AdvReac Type Severity Reaction Status Date / Time Penicillins Allergy rash Verified 05/22/25 06:18 Family History Father Myocardial infarction, Onset Age: 40 Grandfather Myocardial infarction Grandmother Myocardial infarction Surgical History Hx of knee surgery Hx of excision of dermoid cyst History of colonoscopy Social History Smoking Status: Never smoker caffeine: Yes (Mountain dew) Type: carbonated beverages Number of servings: 8 Review of Systems (Anesthesia) ROS Narrative System reviewed and no additional complaints, except as documented.
--- NOTE | 2025-05-22 09:10 | PCM.POST.ANE ---
Anesthesia: Postop Eval I Current Vital Signs Temperature: 97.3 F Pulse Rate: 65 Blood Pressure: 136/88 Respiratory Rate: 14 Pulse Ox: 96 Oxygen Delivery Method: Room Air Assessment Airway patent: Yes Spontaneous unlabored respirations: Yes Mental status: Awake and Calm nausea: No Vomiting: No Anesthesia Complication: No Fluid Hydration Crystalloid volume administer (ml): 1,200 Total IV fluid infused: 1,200 Progress Note Anesthesia document: Postop Eval 1 completed: Yes
--- NOTE | 2025-05-22 09:48 | POSTOPAN2_ITS ---
Anesthesia Postop Eval I Sum Postop Eval Completion status Anesthesia document: Postop Eval 1 completed: Yes Anesthesia Postop Eval I Summary Anesthesia Postop Eval I Summary: Anesthesia Postop Eval I: Assessment Summary Airway patent Yes 05/22/25 09:11 DIRECTOR [email or web address] Spontaneous unlabored Yes 05/22/25 09:11 DIRECTOR [email or web address] respirations Mental status Awake,Calm 05/22/25 09:11 DIRECTOR [email or web address] nausea No 05/22/25 09:11 DIRECTOR [email or web address] Vomiting No 05/22/25 09:11 DIRECTOR [email or web address] Anesthesia Postop Eval I: Fluid Summary Crystalloid volume administer 1,200 05/22/25 09:11 DIRECTOR [email or web address] (ml) Colloids volume administered ( ml) Blood Product volume administered (ml) Total IV fluid infused 1,200 05/22/25 09:11 DIRECTOR [email or web address] Anesthesia Postop Eval I: Summary Notes Anesthesia Complication No 05/22/25 09:11 DIRECTOR [email or web address] Anesthesia Complication Comment: Post-operative progress note Anesthesia: Postop Eval II Evaluation Mental status: Awake and Calm Pain Level: 0 nausea: No Vomiting: No Complications Anesthesia Complication: No
--- NOTE | 2025-05-22 09:48 | PCM.POSTANE2 ---
Anesthesia Postop Eval I Sum Postop Eval Completion status Anesthesia document: Postop Eval 1 completed: Yes Anesthesia Postop Eval I Summary Anesthesia Postop Eval I Summary: Anesthesia Postop Eval I: Assessment Summary Airway patent Yes 05/22/25 09:11 [email or web address] Spontaneous unlabored Yes 05/22/25 09:11 [email or web address] respirations Mental status Awake,Calm 05/22/25 09:11 [email or web address] nausea No 05/22/25 09:11 PAINT [email or web address] Vomiting No 05/22/25 09:11 PAINT [email or web address] Anesthesia Postop Eval I: Fluid Summary Crystalloid volume administer 1,200 05/22/25 09:11 PAINT [email or web address] (ml) Colloids volume administered ( ml) Blood Product volume administered (ml) Total IV fluid infused 1,200 05/22/25 09:11 PAINT [email or web address] Anesthesia Postop Eval I: Summary Notes Anesthesia Complication No 05/22/25 09:11 PAINT [email or web address] Anesthesia Complication Comment: Post-operative progress note Anesthesia: Postop Eval II Evaluation Mental status: Awake and Calm Pain Level: 0 nausea: No Vomiting: No Complications Anesthesia Complication: No
--- NOTE | 2025-05-22 10:02 | OP.PCM_ITS ---
Operative Report (Standard) Operative Information Date of Procedure: 05/22/25 Pre-Operative Diagnosis: Left distal rectus femoris tendon avulsion Post-Operative Diagnosis: Left distal rectus femoris tendon avulsion Surgery/Procedure Performed: Open repair left distal rectus femoris distal tendon avulsion healthcare insurance sales agent: Yes Glost Kiln Operator: Norma Trinidad Tasks completed by first grade teacher: Opening & closing, Implanting device and Retracting Type of Anesthesia: General/Regional RN Documented Start/Stop Times: Operation Date: 05/22/25 07:30 Case Time Into Pre-Op 05/22/25 05:55 Out of Pre-Op 05/22/25 07:27 Anesthesia Start 05/22/25 07:28 Into Room 05/22/25 07:28 Procedure Start 05/22/25 07:52 Procedure End 05/22/25 08:45 Anesthesia End 05/22/25 08:51 Out of Room 05/22/25 08:51 Into Recovery 05/22/25 08:54 Procedure Start Time: 07:52 Procedure Stop Time: 08:45 Select all DRAINS/GRAFTS/IMPLANTS that apply: Implanted device Implanted device details: Arthrex knotless all suture fiber tack knee anchor x 2 Estimated Blood Loss: 5 cc Specimen collected: No Description of surgery: Description of procedure: Patient was identified in the preoperative holding area by name, medical record number, and date of . The operative extremity was marked. Informed consent was confirmed with the patient. All questions were answered to his satisfaction. At time of his procedure, patient was brought to the operative suite and positioned supine a standard operating table. All bony prominences were well- padded. General anesthesia was induced with a laryngeal mask airway placed. After adequate anesthesia and securing the tube, a well-padded pneumatic tourniquet was applied to left upper thigh. We then prepped and draped the left lower extremity in a normal, sterile orthopedic fashion after placing a bump under the patient's left hip and elevating the left lower extremity slightly on bath blankets. 3 g Ancef was administered prior to the incision by anesthesia staff. We then performed a timeout with all parties in attendance in agreement with the side, site, and operation be performed. No concerns were voiced and we elected to proceed. I first exsanguinated the left lower extremity and Esmarch bandage. Tourniquet was inflated 280 mmHg remained up for approximately 45 minutes. Esmarch was removed. I was able to palpate a defect in the quadriceps tendon. Incision was carried sharply through skin and subcutaneous tissue approximately 6 cm in length overlying the superior third of the patella and the quadriceps tendon. Bursa and fascia was split in line with the incision. Hematoma was encountered, irrigated and evacuated. Rectus femoris avulsion was noted with small bony fragment with retraction of approximately 4 to 5 cm. Remainder of the quadriceps was intact. There was delamination between the remainder of the intact tendon. Minimal tendinosis was observed. I then cleared the remaining footprint fibers from the proximal patella. I lightly decorticated with a bur. Tendon mobility was excellent. I then performed a standard Krak?w locking suture to the medial lateral halves of the tendon with 2 suture tapes. Tendon excursion was again checked and was excellent. I then used the Arthrex all suture knotless knee anchors placing them approximately 1 cm apart at the footprint of the rectus femoris. These were drilled in standard fashion. Anchors were placed, tension. A single limb from each suture tail was passed sequentially through the knotless mechanism and then sequentially tensioned to reduce the tendon. There was excellent reapproximation of the tendon to its footprint. Significant tension was noted approximately 45 degrees of flexion. I then passed with a free needle the ends of the suture tape into the adjacent intact tendon and tied to reinforce the repair. I then placed multiple [id number] sutures to the now repaired rectus femoris tendon into the remainder of the intact quadriceps to reduce the delamination and for additional fixation. Tourniquet was deflated. Hemostasis was excellent. The wound was irrigated with normal saline solution. Bursal layer was closed with interrupted [id number] 1 Vicryl suture. Dermis was reapproximated buried 2-0 Vicryl suture and skin finally reapproximated adrian. Field block was administered with 16 cc quarter percent bupivacaine with epinephrine. Patient was placed in a T ROM hinged knee brace set from 0-10 degrees. He was safely extubated and awakened in the operative suite. He tolerated the procedure well without apparent complication. Was transferred to his gurney and subsequently to PACU in stable condition. Need for skilled orthodontic technician assistant: Norma Trinidad PA-C was critical to the outcome of the case. During the course of the procedure the physician orthodontic technician assistant played a vital role. Her intimate knowledge of my steps in the procedure aided in safe and expedient completion of the procedure. The PA played a vital role in positioning particularly in obtaining the appropriate positioning. The PA was also vital in the retraction of soft tissues during the exposure and protecting vital structures. The PA was also vital and obtaining tendon reduction and assisting with hardware placement. She also played a vital role in closure and brace application with my direct supervision. Post Operative Plan: Weightbearing: Weightbearing as tolerated left lower extremity -hinged knee brace locked in extension at all times. To be removed only for hygiene purposes, at which time the knee should not be flexed beyond 10 degrees. Antibiotics: Single dose of Ancef prior to incision DVT Prophylaxis: SCDs, early mobilization, 81 mg aspirin twice daily Will: None Dressing: Maintain surgical silver dressing x5 days, then okay to remove X-Rays: None Follow-up: 2 weeks in my office Surgical Findings: Displaced isolated rectus femoris avulsion. Stable following fixation to flexion of 45 degrees. Complications Complications: No Admit VTE Documentation VTE Present on Admission: No VTE Mechan Device Prophylaxis: [facility]'s VTE Pharm Prophylaxis ordered?: Yes
== END 2025-05-22 11:47 | disposition home or self-care (01) ==
LOC: SDC 05:46 → AC 05:46
PROVIDERS: PCP Family Medicine; Referring Provider Student in an Organized Health Care Education/Training Program; Visit Provider Student in an Organized Health Care Education/Training Program
PROC: (CPT 27385; principal; 2025-05-22 07:15)
DX: S76.192A Other specified injury of left quadriceps muscle, fascia and tendon, initial encounter (principal); M25.462 Effusion, left knee; I10 Essential (primary) hypertension; E66.9 Obesity, unspecified; Z68.39 Body mass index [BMI] 39.0-39.9, adult; Z79.899 Other long term (current) drug therapy; X58.XXXA Exposure to other specified factors, initial encounter
CPT/HCPCS: 27385; 64450; 01250; 36415; 80048; 85025; 93005; C1713; J2405